=== PATIENT | male | born 1995 | race Caucasian/White ===

== ENCOUNTER 2021-08-21 19:06 | Emergency (ER) | payer BC, SELFPAY ==
[2021-08-21 19:10] VITALS: BP 142/81; PULSE 99; RESP 14; TEMP 37.1; O2SAT 99
[2021-08-21 19:20] VITALS: BP 142/81; PULSE 99; RESP 14; TEMP 37.1; O2SAT 99
--- NOTE | 2021-08-21 19:34 | ED.URI ---
HPI - URI/Sore Throat General Chief Complaint: Upper Respiratory Infection Stated Complaint: Cough/Shortness of Breath Time Seen by Provider: 08/21/21 19:26 Source: patient and RN notes reviewed Mode of arrival: ambulatory Limitations: no limitations History of Present Illness HPI Narrative: Patient presents today complaint of a 2-day history of dry cough, postnasal drip, nasal congestion and sinus pressure. Denies fever, shortness of breath. He has been using [id number] allergy medication and DayQuil without much relief. History of asthma as a child, but currently takes no medication for control. He is a non-smoker. No sick contacts. MD elicited complaint: cough and nasal congestion Related Data Home Medications Medication Instructions Recorded Confirmed dicyclomine 10 mg PO QID PRN 08/21/21 08/21/21 famotidine 20 mg PO DAILY PRN 08/21/21 08/21/21 Allergies Allergy/AdvReac Type Severity Reaction Status Date / Time Iodinated Contrast Media Allergy Hives Verified 08/21/21 19:18 Review of Systems Review of Systems: CONSTITUTIONAL: Denies body aches, fever, chills, or sweats. EYES: Denies visual changes, redness, or discharge. ENT: Denies rhinorrhea, sore throat, or otalgia.+ Nasal congestion, postnasal drip sinus pressure CARDIOVASCULAR: Denies chest pain, palpitations, or edema. RESPIRATORY: Denies dyspnea.+ Cough GASTROINTESTINAL: Denies abdominal pain, nausea, vomiting, or diarrhea. GENITOURINARY: Denies dysuria or hematuria. SKIN: Denies rash, itching, or wounds. MUSCULOSKELETAL: Denies back pain, joint pain, or myalgia. NEUROLOGIC: Denies headache, numbness, tingling, or weakness. PSYCH: Denies depression or anxiety. PMFSH Social History Social History Smoking status: Never smoker Alcohol intake: never Substance use: never Comments At time of signature, I have reviewed and agree with nursing past medical, surgical, social and family history unless otherwise noted. Please see nursing chart for further information. There is no relevant family history pertinent to the presenting complaint Exam Narrative: GENERAL: Well-appearing, well-nourished, and in no acute distress. HEAD: Normocephalic, atraumatic. EYES: EOMI. No redness or drainage. Conjunctivae normal. ENT: Mucous membranes pink and moist. Nares congestion with rhinorrhea. TMs normal bilaterally. Throat normal with mild postnasal drainage. Uvula midline. NECK: Normal AROM. Supple. No lymphadenopathy. CHEST: No respiratory distress. Clear to auscultation. HEART: Regular rate and rhythm. No murmur appreciated. Normal peripheral pulses. EXTREMITIES: Normal range of motion. No edema. SKIN: Warm, dry, no rash. Capillary refill normal. Normal skin turgor. NEURO: No focal deficits. Alert and oriented x3. Gait steady. PSYCH: Normal affect. No signs of depression or anxiety. Course Course Level of Care: Express Care Visit Vital Signs Vital signs: Vital Signs Temperature 98.7 F 08/21/21 19:10 Pulse Rate 99 08/21/21 19:10 Respiratory Rate 14 08/21/21 19:10 Blood Pressure 142/81 H 08/21/21 19:10 Pulse Oximetry 99 08/21/21 19:10 Temperature 98.7 F 08/21/21 19:20 Pulse Rate 99 08/21/21 19:20 Respiratory Rate 14 08/21/21 19:20 Blood Pressure 142/81 H 08/21/21 19:20 Pulse Oximetry 99 08/21/21 19:20 Reviewed. Pt has been instructed to follow up with his PCP regarding his elevated blood pressure today. MDM - URI/Sore Throat Differential Diagnosis Differential diagnosis: Likely upper respiratory infection, sinusitis, viral infection, bronchitis and other (Rhinitis, environmental allergies) Critical Care Time Critical Care Time Critical Care Time: No Discharge Plan Discharge Clinical Impression: Seasonal allergies Allergic rhinitis Qualifiers: Allergic rhinitis trigger: unspecified Allergic rhinitis seasonality: seasonal Qualified C
== END 2021-08-21 19:42 | disposition home or self-care (01) ==
PROVIDERS: Emergency Provider Nurse Practitioner
DX: J30.2 Other seasonal allergic rhinitis (principal); K21.9 Gastro-esophageal reflux disease without esophagitis
CPT/HCPCS: 99211; G0463

== ENCOUNTER 2021-09-04 16:09 | Emergency (ER) | payer BC, SELFPAY ==
--- NOTE | ~2021-09-04 | XR_ITS ---
EXAMINATION: XR chest 2V DATE: 09/04/2021 16:31 INDICATION: Fever, decreased lung sounds TECHNIQUE: PA and lateral views of the chest are obtained. COMPARISON: 06/25/2017 FINDINGS: The lungs are free of acute opacities. There is no pleural effusion or pneumothorax. The ca rdiomediastinal silhouette is normal. The visualized bones and soft tissues are unremarkable. IMPRESSION: 1. No acute cardiopulmonary abnormality. Reviewed, dictated and finalized at location F.
--- NOTE | 2021-09-04 16:11 | ED.URI ---
HPI - URI/Sore Throat General Stated Complaint: Cough/Headache/Sore Throat Time Seen by Provider: 09/04/21 16:11 Source: patient and RN notes reviewed Related Data Home Medications Medication Instructions Recorded Confirmed dicyclomine 10 mg PO QID PRN 08/21/21 08/21/21 famotidine 20 mg PO DAILY PRN 08/21/21 08/21/21 Allergies Allergy/AdvReac Type Severity Reaction Status Date / Time Iodinated Contrast Media Allergy Hives Verified 08/21/21 19:18 Review of Systems Review of Systems: CONSTITUTIONAL: Denies fever, chills, or sweats. EYES: Denies visual changes, redness, or discharge. ENT: Denies rhinorrhea, congestion, sore throat, or otalgia. CARDIOVASCULAR: Denies chest pain, palpitations, or edema. RESPIRATORY: Denies cough or dyspnea. GASTROINTESTINAL: Denies abdominal pain, nausea, vomiting, or diarrhea. GENITOURINARY: Denies dysuria or hematuria. SKIN: Denies rash or itching. MUSCULOSKELETAL: Denies back pain, joint pain, or myalgia. NEUROLOGIC: Denies headache, numbness, or weakness. PSYCHIATRIC: Denies anxiety or depression. All other systems reviewed are negative, except as documented in HPI. [facility] Social History Social History Smoking status: Never smoker Alcohol intake: never Substance use: never Comments At the time of my signature, I reviewed and agree with the nursing past medical, surgical, social, and family history. There is no relevant family history pertinent to the patient complaint. Exam Narrative: GENERAL: This is a well-nourished, well-developed patient, in no apparent distress. HEAD: normocephalic, atraumatic. EYES: PERRL. Sclera clear/white. Vision is grossly intact. EARS: External ears normal, auditory canals clear and without drainage, TMs normal without perforation. Hearing grossly intact. NOSE: External nose normal with no obvious nasal discharge, nares without redness, no rhinorrhea. THROAT: Mucous membranes moist, posterior pharynx clear. NECK: Neck supple, non-tender without lymphadenopathy, masses or thyromegaly. CARDIOVASCULAR: Regular rate and rhythm without murmurs, gallops, or rubs. RESPIRATORY: Clear to auscultation. Breath sounds equal bilaterally. No wheezes, rales, or rhonchi. GASTROINTESTINAL: Abdomen soft, non-tender, nondistended. Bowel sounds are active. No hepato-splenomegaly, or palpable masses. No guarding. SKIN: warm, intact with no suspicious lesions or rash, good texture and turgor. NEURO: awake, alert, and oriented to person, place and time. There were no obvious focal neurologic abnormalities. EXTREMITIES: No clubbing, cyanosis, or edema. No joint tenderness, effusion, or edema noted. No calf tenderness. Negative Homans sign bilaterally. BACK: Nontender without deformity or crepitance. No flank tenderness. Course Course Level of Care: Express Care Visit MDM - URI/Sore Throat Differential Diagnosis Differential diagnosis: Likely upper respiratory infection, otitis media, sinusitis, viral infection, bronchitis, influenza and pharyngitis Lab Data Attestation: I reviewed the patient's lab results. Critical Care Time Critical Care Time Critical Care Time: No Discharge Plan Discharge Prescriptions: No Action famotidine 20 mg Tablet 20 mg PO DAILY PRN (Reason: Abdominal Discomfort) RF: 0 dicyclomine 10 mg Capsule 10 mg PO QID PRN (Reason: Abdominal Discomfort) RF: 0
[2021-09-04 16:14] VITALS: BP 135/51; PULSE 122; RESP 18; TEMP 38.4; O2SAT 99
--- NOTE | 2021-09-04 16:24 | ED.URI ---
HPI - URI/Sore Throat General Chief Complaint: Upper Respiratory Infection Stated Complaint: Cough/Headache/Sore Throat Time Seen by Provider: 09/04/21 16:11 Source: patient and RN notes reviewed History of Present Illness HPI Narrative: Patient is a 26-year-old male who presents the urgent care with complaints of cough, headache sore throat and fever. Patient states he has had the cough for at least 1 month with intermittent headaches. Patient states he has had chills for the last 2 weeks with intermittent shortness of breath. States that the sore throat and fever started over the last 24 to 48 hours. Patient has been taking ibuprofen and allergy medication. Denies of chest pain. Denies of any ill contacts. Denies of any nausea or vomiting. No other acute complaints. No acute distress noted. Patient aware of the plan of care. Some parts of this dictation were generated by voice recognition software and may contain typographical and/or grammatical inaccuracies. Related Data Home Medications Medication Instructions Recorded Confirmed dicyclomine 10 mg PO QID PRN 08/21/21 08/21/21 famotidine 20 mg PO DAILY PRN 08/21/21 08/21/21 Allergies Allergy/AdvReac Type Severity Reaction Status Date / Time Iodinated Contrast Media Allergy Hives Verified 08/21/21 19:18 Review of Systems Review of Systems: CONSTITUTIONAL: Reports a fever, chills EYES: Denies visual changes, redness, or discharge. ENT: Denies rhinorrhea, congestion, otalgia. Reports of sore throat CARDIOVASCULAR: Denies chest pain, palpitations, or edema. RESPIRATORY: Reports of cough with intermittent dyspnea GASTROINTESTINAL: Denies abdominal pain, nausea, vomiting, or diarrhea. GENITOURINARY: Denies dysuria or hematuria. SKIN: Denies rash or itching. MUSCULOSKELETAL: Denies back pain, joint pain, or myalgia. NEUROLOGIC: Reports of intermittent headaches All other systems reviewed are negative, except as documented in HPI. [facility] Social History Social History Smoking status: Never smoker Alcohol intake: never Substance use: never Comments At the time of my signature, I reviewed and agree with the nursing past medical, surgical, social, and family history. There is no relevant family history pertinent to the patient complaint. Exam Narrative: GENERAL: This is a well-nourished, well-developed patient. Appears fatigued HEAD: normocephalic, atraumatic. EYES: PERRL. Sclera clear/white. Vision is grossly intact. EARS: External ears normal, auditory canals clear and without drainage, TMs normal without perforation. Hearing grossly intact. NOSE: External nose normal with no obvious nasal discharge. Bilateral erythemic nares with yellow rhinorrhea THROAT: Mucous membranes moist, mild erythema noted posterior pharynx with moderate postnasal drainage NECK: Neck supple, non-tender without lymphadenopathy, masses or thyromegaly. CARDIOVASCULAR: Regular rate and rhythm without murmurs, gallops, or rubs. RESPIRATORY: Clear to auscultation. Breath sounds equal bilaterally. No wheezes, rales, or rhonchi. SKIN: warm, intact with no suspicious lesions or rash, good texture and turgor. NEURO: awake, alert, and oriented to person, place and time. There were no obvious focal neurologic abnormalities. EXTREMITIES: No clubbing, cyanosis, or edema. Course Course Level of Care: Express Care Visit Vital Signs Vital signs: Vital Signs Temperature 101.2 F H 09/04/21 16:14 Pulse Rate 122 H 09/04/21 16:14 Respiratory Rate 18 09/04/21 16:14 Blood Pressure 135/51 L 09/04/21 16:14 Pulse Oximetry 99 09/04/21 16:14 Temperature 101.2 F H 09/04/21 16:14 Pulse Rate 122 H 09/04/21 16:14 Respiratory Rate 18 09/04/21 16:14 Blood Pressure 135/51 L 09/04/21 16:14 Pulse Oximetry 99 09/04/21 16:14 Reviewed MDM - URI/Sore Throat MDM Narrative Medical decision making narrative: Reviewed chest x
== END 2021-09-04 17:31 | disposition home or self-care (01) ==
PROVIDERS: Emergency Provider Nurse Practitioner Family
DX: U07.1 COVID-19 (principal); K21.9 Gastro-esophageal reflux disease without esophagitis
CPT/HCPCS: 71046; 87081; 87426; 87804; 87880; 99213; C9803; G0463

== ENCOUNTER 2022-07-14 17:33 | Emergency (ER) | payer BC, SELFPAY ==
[2022-07-14 17:38] VITALS: BP 150/78; PULSE 100; RESP 20; TEMP 37; O2SAT 99
--- NOTE | 2022-07-14 17:42 | ED.URI ---
HPI - URI/Sore Throat General Chief Complaint: Upper Respiratory Infection Stated Complaint: cold sx Time Seen by Provider: 07/14/22 17:35 Source: patient and RN notes reviewed History of Present Illness HPI Narrative: Patient is a 27-year-old male who presents to urgent care with complaints of persistent nonproductive cough since Thursday. Patient states that it feels like a tickle in his throat and is now causing a headache due to the persistent coughing. Patient has been taking DayQuil, NyQuil and Mucinex. Denies any other upper respiratory complaints. Denies any fever, chest pain or shortness of breath. No other acute complaints. No acute distress noted. Patient aware of the plan of care. Some parts of this dictation were generated by voice recognition software and may contain typographical and/or grammatical inaccuracies. Related Data Home Medications Medication Instructions Recorded Confirmed propranolol 10 mg tablet 10 mg PO DAILY 07/14/22 07/14/22 Allergies Allergy/AdvReac Type Severity Reaction Status Date / Time codeine Allergy Unknown Verified 07/14/22 17:46 Iodinated Contrast Media Allergy Hives Verified 08/21/21 19:18 Review of Systems Review of Systems: CONSTITUTIONAL: Denies fever, chills, or sweats. EYES: Denies visual changes, redness, or discharge. ENT: Denies rhinorrhea, congestion, sore throat, or otalgia. CARDIOVASCULAR: Denies chest pain, palpitations, or edema. RESPIRATORY: Reports dry cough without dyspnea GASTROINTESTINAL: Denies abdominal pain, nausea, vomiting, or diarrhea. GENITOURINARY: Denies dysuria or hematuria. SKIN: Denies rash or itching. MUSCULOSKELETAL: Denies back pain, joint pain, or myalgia. NEUROLOGIC: Denies headache, numbness, or weakness. All other systems reviewed are negative, except as documented in HPI. PMFSH Social History Social History Smoking status: Never smoker Alcohol intake: never Substance use: never Comments At the time of my signature, I reviewed and agree with the nursing past medical, surgical, social, and family history. There is no relevant family history pertinent to the patient complaint. Exam Narrative: GENERAL: This is a well-nourished, well-developed patient, in no apparent distress. HEAD: normocephalic, atraumatic. EYES: PERRL. Sclera clear/white. Vision is grossly intact. EARS: External ears normal, auditory canals clear and without drainage, moderate effusion to the right ear. Bilateral TMs normal without perforation. Hearing grossly intact. NOSE: External nose normal with no obvious nasal discharge, nares without redness, no rhinorrhea. THROAT: Mucous membranes moist, moderate postnasal drainage NECK: Neck supple CARDIOVASCULAR: Regular rate and rhythm RESPIRATORY: Nonproductive cough noted with deep breathing. Clear to auscultation. Breath sounds equal bilaterally. No wheezes, rales, or rhonchi. SKIN: warm, intact with no suspicious lesions or rash, good texture and turgor. NEURO: awake, alert, and oriented to person, place and time. There were no obvious focal neurologic abnormalities. EXTREMITIES: No clubbing, cyanosis, or edema. Course Course Level of Care: Express Care Visit Vital Signs Vital signs: Vital Signs Temperature 98.6 F 07/14/22 17:38 Pulse Rate 100 07/14/22 17:38 Respiratory Rate 20 07/14/22 17:38 Blood Pressure 150/78 H 07/14/22 17:38 Pulse Oximetry 99 07/14/22 17:38 Oxygen Delivery Room Air 07/14/22 17:38 Temperature 98.6 F 07/14/22 17:38 Pulse Rate 100 07/14/22 17:38 Respiratory Rate 20 07/14/22 17:38 Blood Pressure 150/78 H 07/14/22 17:38 Pulse Oximetry 99 07/14/22 17:38 Oxygen Delivery Room Air 07/14/22 17:38 Reviewed- Patient is informed that they may have pre-hypertension or hypertension based on a blood pressure reading in the department. I recommend the patient call the primary care provider lis
== END 2022-07-14 17:59 | disposition home or self-care (01) ==
PROVIDERS: Emergency Provider Nurse Practitioner Family
DX: J40 Bronchitis, not specified as acute or chronic (principal)
CPT/HCPCS: 99213; G0463

== ENCOUNTER 2022-08-25 15:25 | Emergency (ER) | payer BC, SELFPAY ==
--- NOTE | ~2022-08-25 | XR_ITS ---
LUMBAR SPINE INDICATION: Testicle and low back pain TECHNIQUE: 5 views lumbar spine COMPARISON: No prior studies for comparison. FINDINGS: No fracture, subluxation or dislocation. No evidence for spondylolysis or spondylolisthesi s. Vertebral bodies and disk spaces are preserved. IMPRESSION: 1: No acute abnormality of the lumbar spine identified. Reviewed, dictated and finalized at location B.
[2022-08-25 15:30] VITALS: BP 136/76; PULSE 79; RESP 20; TEMP 36.7; O2SAT 98
--- NOTE | 2022-08-25 16:00 | ED.BACK ---
HPI - Back Pain/Injury General Chief Complaint: Back Pain/Injury Stated Complaint: Low Back Pain Source: patient and RN notes reviewed History of Present Illness HPI Narrative: 27 yo M presents to urgent care with complaints of bilateral lower back pain x 1 week. Pt states the pain started out in his mid back 2 weeks ago and it has now moved downward. Pt reports the left side is worse than the right. Pt currently has pain that radiates to his left flank. Pt also reporting testicle pain x 5 days. Pt states he has had his walk on his back and recently had the best pop he's had in his upper back. Pt reports intermittent left leg, posteriorly, pain. States he has had kidney stones in the past but this feels different than that. Denies any fevers, chills, abdominal pain, dysuria, numbness, tingling, saddle anesthesia, or incontinence of urine or stool. Patient has taken Tylenol and ibuprofen. Related Data Home Medications Medication Instructions Recorded Confirmed sertraline 100 mg tablet 100 mg PO DIRECTED 08/25/22 08/25/22 Allergies Allergy/AdvReac Type Severity Reaction Status Date / Time codeine Allergy Unknown Verified 08/25/22 15:54 Iodinated Contrast Media Allergy Hives Verified 08/25/22 15:54 Review of Systems Review of Systems: Pertinent positives and pertinent negatives per HPI. [facility] Social History Social History Smoking status: Never smoker Alcohol intake: never Substance use: never Comments At the time of my signature, I reviewed and agree with the nursing past medical, surgical, social, and family history. There is no relevant family history pertinent to the patient complaint. Exam Narrative: GENERAL: This is a well-nourished, well-developed patient, in no apparent distress. HEAD: normocephalic, atraumatic. EYES: PERRL. Sclera clear/white. Vision is grossly intact. EARS: External ears normal, auditory canals clear and without drainage, TMs normal without perforation. Hearing grossly intact. NOSE: External nose normal with no obvious nasal discharge, nares without redness, no rhinorrhea. THROAT: Mucous membranes moist, posterior pharynx clear. NECK: Neck supple, non-tender without lymphadenopathy, masses or thyromegaly. CARDIOVASCULAR: Regular rate and rhythm without murmurs, gallops, or rubs. RESPIRATORY: Clear to auscultation. Breath sounds equal bilaterally. No wheezes, rales, or rhonchi. GASTROINTESTINAL: Abdomen soft, non-tender, nondistended. Bowel sounds are active. No hepato-splenomegaly, or palpable masses. No guarding. SKIN: warm, intact with no suspicious lesions or rash, good texture and turgor. NEURO: awake, alert, and oriented to person, place and time. There were no obvious focal neurologic abnormalities. EXTREMITIES: No clubbing, cyanosis, or edema. No joint tenderness, effusion, or edema noted. BACK: Nontender without deformity or crepitance. No flank tenderness. Course Course Level of Care: Express Care Visit Vital Signs Vital signs: Vital Signs Temperature 98.0 F 08/25/22 15:30 Pulse Rate 79 08/25/22 15:30 Respiratory Rate 20 08/25/22 15:30 Blood Pressure 136/76 08/25/22 15:30 Pulse Oximetry 98 08/25/22 15:30 Oxygen Delivery Room Air 08/25/22 15:30 Temperature 98.0 F 08/25/22 15:30 Pulse Rate 79 08/25/22 15:30 Respiratory Rate 20 08/25/22 15:30 Blood Pressure 136/76 08/25/22 15:30 Pulse Oximetry 98 08/25/22 15:30 Oxygen Delivery Room Air 08/25/22 15:30 Reviewed MDM - Back Pain/Injury MDM Narrative Medical decision making narrative: Discussed reasons for ER transfer including rule out testicular torsion and renal stone. Pt agrees with plan of care and would like to go to [facility] ED. Report called to [facility], spoke to Glenys NAGY who accepted pt for Dr. Rasmussen. Pt is going by private vehicle. Differential Diagnosis Differential diagnosis: Likely sciatica, pyelonephr
== END 2022-08-25 16:34 | disposition short-term general hospital (02) ==
PROVIDERS: Emergency Provider Nurse Practitioner Family
DX: N50.819 Testicular pain, unspecified (principal)
CPT/HCPCS: 72110; 81003; 99213; G0463

== ENCOUNTER 2022-10-02 08:52 | Outpatient (CLI) | payer BC, SELFPAY ==
[2022-10-02 19:23] LABS: Alanine Aminotransferase 46 U/L (6-50); Alkaline Phosphatase 72 U/L (38-126); Anion Gap 11 mmol/L (8-16); Aspartate Amino Transferase 41 U/L (17-59); Bilirubin,Total 0.5 mg/dL (0.2-1.3); Blood Urea Nitrogen 17 mg/dL (9-20); Calcium 9.2 mg/dL (8.4-10.2); Carbon Dioxide 29 mmol/L (22-30); Chloride 102 mmol/L (98-107); Cholesterol 247 mg/dL (0-200); Estimated Glomerular Filt Rate > 60; Glucose 76 mg/dL (65-110); HDL Direct 41 mg/dL; Potassium 3.9 mmol/L (3.4-5.0); Sodium 142 mmol/L (137-145); Triglycerides 250 mg/dL (<150)
[2022-10-02 19:38] LABS: Basophils Absolute Auto 0.1 K/mm3 (0.0-0.1); Eosinophils Absolute Auto 0.1 K/mm3 (0-0.3); Eosinophils Percent Auto 1.2 % (0-4.4); Hematocrit 46.7 % (42.0-52.0); Hemoglobin 15.7 g/dL (14.0-18.0); Immature Granulocyte Absolute 0.04 K/mm3 (0.00-0.031); Immature Granulocyte Percent A 0.6 % (0-0.5); Lymphocytes Absolute Auto 2.06 K/mm3 (0.9-3.2); Lymphocytes Percent Auto 28.5 % (18.3-44.2); Mean Corpuscular HGB Conc 33.6 g/dl (32-36); Mean Corpuscular Hemoglobin 29.5 pg (26-34); Mean Corpuscular Volume 87.6 fl (80-100); Mean Platelet Volume 9.5 fl (7.4-10.4); Monocytes Absolute Auto 0.6 K/mm3 (0.1-0.6); Monocytes Percent Auto 7.7 % (2.6-8.5); Neutrophils Absolute Auto 4.4 K/mm3 (1.3-6.7); Platelet Count Result 222 k/mm3 (150-375); Red Blood Count 5.33 M/mm3 (4.6-6.20); Red Cell Distribution Width 12.5 % (11.5-14.5); White Blood Count 7.2 K/mm3 (4.5-10.0)
[2022-10-02 19:47] LABS: LDL Cholesterol Direct 164 mg/dL
== END 2022-10-02 08:53 | disposition home or self-care (01) ==
LOC: ANHGOSHLAB 08:53
PROVIDERS: PCP Family Medicine; Visit Provider Nurse Practitioner
DX: K58.9 Irritable bowel syndrome, unspecified (principal); K76.0 Fatty (change of) liver, not elsewhere classified
CPT/HCPCS: 36415; 80053; 80061; 85025

== ENCOUNTER 2022-10-14 08:47 | Outpatient (CLI) | payer BC, SELFPAY ==
--- NOTE | ~2022-10-14 | MR_ITS ---
EXAMINATION: MR lumbar spine wo con DATE: 10/14/2022 09:21 INDICATION: Low back pain, unspecified. TECHNIQUE: Magnetic resonance imaging (MRI) of the lumbar spine was performed without intravenous con trast. Sequences included sagittal T2-weighted FSE, sagittal T2-weighted FS FSE, sagittal T1-weighted FSE, and axial T2-weighted FSE. COMPARISON: Lumbar spine radiographs 08/25/2022 FINDINGS: Bone alignment is normal. Vertebral body heights are normal. There is mildly decreased disc height at L5-S1. The distal spinal cord signal intensity is normal. The conus medullaris is at T12-L 1. The following disc levels are specifically discussed: L1-L2: The disc does not extend beyond the endplate margin. There is mild bilateral facet joint osteo arthritis. There is no neural foraminal stenosis. There is no central canal stenosis. L2-L3: The disc does not extend beyond the endplate margin. There is moderate bilateral facet joint o steoarthritis. There is no neural foraminal stenosis. There is no central canal stenosis. L3-L4: The disc does not extend beyond the endplate margin. There is mild bilateral facet joint osteo arthritis. There is no neural foraminal stenosis. There is no central canal stenosis. L4-L5: The disc is bulging and has an annular fissure. There is severe right and moderate left facet joint osteoarthritis. There is mild bilateral neural foraminal stenosis. There is no central canal st enosis. L5-S1: There is a left subarticular and foraminal zone extrusion with mass effect on left S1 nerve ro ot in left lateral recess. There is moderate bilateral facet joint osteoarthritis. There is moderate left neural foraminal stenosis. There is mild central canal stenosis. There is severe stenosis of lef t lateral recess. IMPRESSION: 1. Moderate spondylosis at L5-S1 where an extrusion exerts mass effect on left S1 nerve root. Reviewed, dictated and finalized at location L.
== END 2022-10-14 08:48 | disposition home or self-care (01) ==
LOC: ANHIMG 08:54
PROVIDERS: PCP Nurse Practitioner; Visit Provider Nurse Practitioner
DX: M47.897 Other spondylosis, lumbosacral region (principal)
CPT/HCPCS: 72148

== ENCOUNTER 2022-11-13 12:17 | Outpatient (CLI) | payer BC, SELFPAY ==
[2022-11-13 14:58] LABS: Hematocrit 45.9 % (42.0-52.0); Mean Corpuscular HGB Conc 34.9 g/dl (32-36); Mean Corpuscular Hemoglobin 29.5 pg (26-34); Mean Corpuscular Volume 84.5 fl (80-100); Mean Platelet Volume 8.9 fl (7.4-10.4); Platelet Count Result 229 k/mm3 (150-375); Red Blood Count 5.43 M/mm3 (4.6-6.20); White Blood Count 6.3 K/mm3 (4.5-10.0)
[2022-11-13 15:03] LABS: Appearance Urine Clear (Clear); Bilirubin Urine Negative (Negative); Blood Urine Negative (Negative); Color Urine Yellow (Yellow); Glucose Urine UA Negative (Negative); Ketones Urine Negative (Negative); Leukocyte Esterase Ur Negative LEU/UL (Negative); Nitrate Urine Negative (Negative); Protein Urine Negative (Negative); Specific Grav Ur 1.008 (1.001-1.035); Urobilinogen Urine 0.2 mg/dL (<2.0); pH Urine 5.5 (5.0-9.0)
[2022-11-13 15:08] LABS: Anion Gap 10 mmol/L (8-16); Blood Urea Nitrogen 12 mg/dL (9-20); Calcium 9.3 mg/dL (8.4-10.2); Carbon Dioxide 27 mmol/L (22-30); Chloride 103 mmol/L (98-107); Estimated Glomerular Filt Rate > 60; Glucose 96 mg/dL (65-110); Potassium 3.9 mmol/L (3.4-5.0); Sodium 140 mmol/L (137-145)
[2022-11-13 15:16] LABS: Add Urine Microscopic? NO; INR 0.9
[2022-11-13 15:17] LABS: Partial Thromboplastin Time 28.5 SECONDS (22.3-36.8)
== END 2022-11-13 12:18 | disposition home or self-care (01) ==
PROVIDERS: PCP Internal Medicine; Visit Provider Neurological Surgery
DX: M51.16 Intervertebral disc disorders with radiculopathy, lumbar region (principal); Z01.818 Encounter for other preprocedural examination
CPT/HCPCS: 36415; 80048; 81003; 85027; 85610; 85730

== ENCOUNTER 2022-11-19 06:36 | Day surgery (SDC) | payer BC, SELFPAY ==
[2022-11-10 15:08] VITALS: BMI 32.8
--- NOTE | 2022-11-10 15:56 | SUR.PREOP ---
Report to the Outpatient Waiting Room, entrance under the green pavilion located off [facility], at time 0600 on date 11/19/22. Planned Procedure Time: 0730. Time changes happen often and if your time is changed the preop area will call you the afternoon before. - You and your visitor will be asked to self-screen and do not enter if you have any COVID symptoms. - A mask is optional within the hospital at this time. Patients may have clear liquids (water, carbonated beverages, clear teas, apple juice) until 3 hours prior to surgery with a maximum of 20 ounces. - No food from midnight until time of surgery - Infants may have breast milk until 4 hours before surgery, infant formula 6 hours prior to surgery. - Children will be allowed to drink immediately following surgery. If applicable, please bring a bottle or sippy cup to assist with drinking. Juice, water, soda, and popsicles are readily available. For infants on formula, please bring formula the day of surgery. Pacifiers are allowed. Take the following medications with a SIP of water the morning of surgery: hydrocodone, buspirone, clonazapam, duloxetine, pregabalin DO NOT STOP ANY OF YOUR OTHER PRESCRIPTION MEDICATIONS PRIOR TO SURGERY ?EXCEPT THE FOLLOWING Medications to discontinue per physician stop all vitamins and suppliments 3 days prior. Date to take last dose 11/15/22 Please no make-up, nail [place] islander, hairspray, perfume, deodorant, or body powder the day of surgery. No jewelry (including any body piercings) or valuables the day of surgery, leave them at home. Please take a shower or bath the night before, or the morning of, surgery with an antibacterial soap. Wear comfortable, loose fitting clothing. Children are encouraged to wear pajamas. - Jewelry must be removed prior to entering the operating room. Rings and piercings that are not removed may be cut off. - The hospital will not accept responsibility for valuables. - Please leave all valuables, including medications, at home the day of surgery. If you are going home after surgery, a licensed warehouse associate driver must drive you home. - NO public transportation without another adult if you receive anesthesia. - We recommend that an adult stay with you for 24 hours following discharge. - We also recommend that you do not drive, make important decision, drink alcoholic beverages, or take any drugs that were not prescribed by your health care provider for at least 24 hours after your discharge time. For Pediatric surgeries, we recommend two adults accompany the child home. Follow any additional instructions given to you from your surgeon. If you or anyone in your household have experienced Covid symptoms in the past week, please notify your surgeon or the nurse liaison at the phone number below for possible testing. Telephone instructions given to camille duong and asked if any additional questions and then verbalized understanding. Patient advised to call surgeon office or pre surgery nurse liaison [phone] if any additional questions.
--- NOTE | 2022-11-17 13:40 | WPDANESEPPF ---
Anes - Initial Pre Proc Eval Procedure: Operation Date: 11/19/22 09:30 Proposed Procedures p Left L5-S1 Micro Discectomy - Trini Tripp MD Date/Time: 11/17/22 13:40 Surgeon: Trini Tripp MD Pre Op Diagnosis: left l5-s1 disc herniation with radiculopathy Patient Data Age: 27 Gender: M Height: 1.8 m Weight: 106.59 kg Allergies Allergy/AdvReac Type Severity Reaction Status Date / Time Iodinated Contrast Media Allergy Hives Verified 11/19/22 07:50 Contrast Media Allergy Intermediate Hives / Uncoded 11/19/22 07:50 Red Face Home Medications Medication Instructions Recorded Confirmed Type buspirone 7.5 mg tablet 7.5 mg PO BID 10/02/22 11/19/22 History clonazepam 0.5 mg tablet 0.5 mg PO DAILY PRN Anxiety 10/02/22 11/19/22 History hydrocodone 5 mg-acetaminophen 325 1 tablet PO Q8H PRN pain #45 tabs 10/20/22 11/19/22 Rx mg tablet pregabalin 75 mg capsule 75 mg PO QHS #30 caps 10/20/22 11/19/22 Rx duloxetine 60 mg capsule,delayed 60 mg PO DAILY 10/30/22 11/19/22 History release (Cymbalta) Patient hx anesthesia problems: none Family hx anesthesia problems: none Results Review: All pre-operative results and documents have been reviewed as part of the pre-operative evaluation. [facility] Past Medical History Medical History (Updated 11/17/22 @ 13:41 by Lev Gordon MD) Anxiety Benign essential tremor syndrome Depression Fatty liver IBS (irritable bowel syndrome) Lumbosacral radiculopathy Obesity Spinal stenosis of lumbar region at multiple levels Surgical History Surgical History History of adenoidectomy History of ear surgery History of placement of ear tubes History of shoulder surgery History of tonsillectomy Family History Family History (Updated 10/02/22 @ 08:51 by Cara Sneed NP) Father Ulcerative colitis Heart disease Mother No problems noted. Other Hypertension Social History Social History (Updated 10/30/22 @ 08:54 by Rox Colin MA) Social History: Kelsey is somewhat confident filling out medical forms. In the last 12 months he has not received assistance from an organization or program. Smoking status: Never smoker Alcohol intake: never Substance use: never Lack of Transportation: No Lack of Food: Never True Current Housing: I Have Housing Concerned About Future Housing: No Difficulty Paying Gas/Electric Bills: No Difficulty Paying for Meds: No Currently Unemployed: No Education: High School Diploma/GED Difficulty w/ Childcare or Family Care: No Living arrangements: alone Spiritual care concerns: No Anes - Eval Final PreProcedure Day of Procedure 11/17/22 13:40 Patient weight: obese Heart: regular rate and rhythm Lungs: clear to auscultation and normal air movement Airway: Mallampati scale class II Neurological: alert and oriented Last oral intake: >/= 8 hours ASA classification: III Emergent: no Anesthetic plan: proceed Anesthesia type and monitoring: general ETT Results Review: All pre-operative results and documents have been reviewed as part of the pre-operative evaluation. Informed Consent: The patient's anesthetic plan and its attendant risks and benefits were discussed with the patient/family/POA. Questions were solicited and answers provided to the satisfaction of the patient/family/POA.
[2022-11-19] VITALS (9 sets, daily range): BP systolic 100–152; BP diastolic 33–94; PULSE 81–99; RESP 10–23; TEMP 36.6–36.7; O2SAT 94–100
--- NOTE | ~2022-11-19 | XR_ITS ---
EXAMINATION: XR fluoroscopy no charge DATE: 11/19/2022 11:30 INDICATION: Left L5-S1 disc herniation. TECHNIQUE: A single intraoperative lateral fluoroscopic view of the lumbar spine was obtained. I was not present. Fluoroscopy exposure time was 6 seconds. COMPARISON: Lumbar spine MRI 10/14/2022 FINDINGS: There is an instrument overlying the posterior elements at L5-S1. IMPRESSION: 1. Instrument overlying the posterior elements at L5-S1. Reviewed, dictated and finalized at location A.
[2022-11-19] MEDS: LACTATED RINGERS 1,000 ML 30 ML IV CONT ×2 (08:08→11:18)
--- NOTE | 2022-11-19 09:08 | WPDHPUPDATE1 ---
History and Physical Update Update Date/Time: 11/19/22 09:08 History and Physical has been reviewed, including an updated exam of the patient. There are NO changes in the patient's condition. Risks, benefits, and alternatives have been discussed and questions answered. Patient agrees to proceed with procedure.
[2022-11-19] MEDS: ceFAZolin 2 GM/D5W 50 ML 2 GM/50 ML BAG IVPB (09:28)
[2022-11-19] MEDS: BUPIVACAINE/EPINEPHRINE 0.5% 10 ML VIAL INFILTRATE (10:05)
--- NOTE | 2022-11-19 11:23 | W.PM.PROC2 ---
Procedure Note - Detailed Date of Procedure 11/19/22 Pre-op Diagnosis Left L5-S1 disc herniation with radiculopathy Post-op Diagnosis Same Procedure Performed 1. Left L5-S1 microdiskectomy 2. Use of microscope for microsurgical dissection 3. Use of C-arm for fluoroscopy Surgeon Trini Tripp MD [employer] [facility] Anesthesia General Indications Mr. Mueller is a 27-year-old male with history of left lumbar radiculopathy and weakness in plantar and dorsiflexion of the left foot who was found to have a large disc herniation at L5-S1. In addition to the pain down the back of his leg, he had numbness in his foot and urinary retention. He failed chiropractic treatment and multiple medications. Surgery in the form of microdiskectomy was recommended. Risks including pain, infection, bleeding, CSF leak, nerve damage, worsening symptoms, failure to improve symptoms, weakness, paresthesias, and paralysis were discussed. The patient provided written informed consent to proceed. Findings Large free disc fragment at L5-S1 causing pressure on the S1 nerve root Description of Procedure The patient was brought into the OR where general anesthesia was induced. The patient was turned prone onto the operating table with Albino frame. All pressure points were padded. The planned incision was marked with the use of the C-arm. The incision was prepped and draped in usual sterile fashion. Time out was performed, and local anesthetic was injected into the planned incision. The midline lumbar incision was opened with a 10-blade scalpel. The soft tissue was dissected with the bovie to the spinous process. A subperiosteal dissection was performed to expose the left L5 lamina. An xray confirmed the correct level. Self-retaining retractors were placed. The high speed drill was used to create a laminotomy at L5. Ligamentum and additional bone were removed with a kerrison. The dura and S1 nerve root were exposed. A Woodsen and 4 penfield were used to access the ventral epidural space. The disc fragment was somewhat adherent to the dura which was gradually elevated with a 4 penfield and Woodsen. A large free disc fragment was discovered and was removed with a micropituitary. The annulotomy was then visualized. The Quiñones was placed into the disc space to remove several small disc fragments. The epidural space was again palpated with the Woodsen, and no other disc fragments were identified. Bleeding was controlled with the bipolar and Surgiflo. The nerve roots and dura felt well decompressed. The surgical site was copiously irrigated. The fascia was closed with 0-vicryl. The dermis was closed with 2-0 and 3-0 vicryl. The skin was closed with 4-0 monocryl. Skin glue was applied to the incision. The patient was returned supine to the stretcher, extubated, and taken to PACU. Codes: 57264, 89576 Implants None Estimated Blood Loss 10 Drains No Packing No Pathology None sent Complications No immediate complications Condition Stable Disposition PACU [facility] Billing Surgery - Charge Forward: Surgery Billing
[2022-11-19] MEDS: oxyCODONE HCL (*CRX) 5 MG TAB IR PO (12:55)
== END 2022-11-19 14:00 | disposition home or self-care (01) ==
PROVIDERS: PCP Internal Medicine; Visit Provider Neurological Surgery
PROC: 0QB00ZX Excision of Lumbar Vertebra, Open Approach, Diagnostic (ICD-10-PCS; CPT 63017; principal; 2022-11-19 09:30)
DX: M51.16 Intervertebral disc disorders with radiculopathy, lumbar region (principal); I10 Essential (primary) hypertension; K76.0 Fatty (change of) liver, not elsewhere classified; F41.9 Anxiety disorder, unspecified; F32.A Depression, unspecified; E66.9 Obesity, unspecified; Z68.32 Body mass index [BMI] 32.0-32.9, adult; Z79.891 Long term (current) use of opiate analgesic
CPT/HCPCS: 63030; 36415; 80048; 81003; 85027; 85610; 85730; 99199; A9270; J0330; J0690; J1100; J1170; J2250; J2405; J2704; J3010; J7120

== ENCOUNTER 2023-01-07 16:14 | Outpatient (CLI) | payer BC, SELFPAY ==
[2023-01-07 18:36] LABS: Basophils Absolute Auto 0.1 K/mm3 (0.0-0.1); Basophils Percent Auto 0.8 % (0.2-1.2); Eosinophils Absolute Auto 0.2 K/mm3 (0-0.3); Eosinophils Percent Auto 2.7 % (0-4.4); Hematocrit 47.9 % (42.0-52.0); Hemoglobin 16.1 g/dL (14.0-18.0); Immature Granulocyte Absolute 0.03 K/mm3 (0.00-0.031); Immature Granulocyte Percent A 0.3 % (0-0.5); Lymphocytes Absolute Auto 2.35 K/mm3 (0.9-3.2); Lymphocytes Percent Auto 27.3 % (18.3-44.2); Mean Corpuscular HGB Conc 33.6 g/dl (32-36); Mean Corpuscular Hemoglobin 29.1 pg (26-34); Mean Corpuscular Volume 86.5 fl (80-100); Mean Platelet Volume 9.3 fl (7.4-10.4); Monocytes Absolute Auto 1.1 K/mm3 (0.1-0.6); Monocytes Percent Auto 12.2 % (2.6-8.5); Neutrophils Absolute Auto 4.9 K/mm3 (1.3-6.7); Neutrophils Percent Auto 56.7 % (45.5-73.1); Platelet Count Result 271 k/mm3 (150-375); Red Blood Count 5.54 M/mm3 (4.6-6.20); White Blood Count 8.6 K/mm3 (4.5-10.0)
[2023-01-07 19:16] LABS: Alanine Aminotransferase 97 U/L (6-50); Albumin Level 4.6 g/dL (3.5-5.1); Alkaline Phosphatase 62 U/L (38-126); Anion Gap 5 mmol/L (8-16); Aspartate Amino Transferase 49 U/L (17-59); Bilirubin,Total 0.5 mg/dL (0.2-1.3); Blood Urea Nitrogen 13 mg/dL (9-20); Calcium 9.1 mg/dL (8.4-10.2); Carbon Dioxide 29 mmol/L (22-30); Chloride 102 mmol/L (98-107); Estimated Glomerular Filt Rate > 60; Glucose 99 mg/dL (65-110); Potassium 4.1 mmol/L (3.4-5.0); Sodium 136 mmol/L (137-145)
[2023-01-07 19:51] LABS: Free T4 Free Thyroxine 1.09 ng/mL (0.78-2.19)
[2023-01-10 05:27] LABS: Triiodothyronine T3 Free 3.8 pg/mL (2.3-4.2)
== END 2023-01-07 16:15 | disposition home or self-care (01) ==
LOC: ANHGOSHLAB 16:15
PROVIDERS: PCP Internal Medicine; Visit Provider Nurse Practitioner
DX: R42 Dizziness and giddiness (principal); R25.1 Tremor, unspecified
CPT/HCPCS: 36415; 80053; 84439; 84443; 84481; 85025

== ENCOUNTER 2023-03-04 16:37 | Emergency (ER) | payer BC, SELFPAY ==
[2023-03-04 16:47] VITALS: BP 132/80; PULSE 95; RESP 16; TEMP 36.6; O2SAT 98
--- NOTE | 2023-03-04 17:13 | ED.GENADULT ---
HPI - General Adult General Chief complaint: Dental/Oral Stated complaint: Mouth Sore Source: patient and RN notes reviewed History of Present Illness HPI narrative: 28 yo M Presents to urgent care with complaints of tongue pain. Pt states he has had canker sores since Thursday but he developed dorsal tongue pain since yesterday. Pt reports a hx of canker sores. Denies any fevers, chills, vomiting, chest pain, or SOB. Related Data Home Medications Medication Instructions Recorded Confirmed buspirone 7.5 mg tablet 7.5 mg PO BID 10/02/22 03/04/23 duloxetine 30 mg capsule,delayed 30 mg PO 03/04/23 release fluoxetine 20 mg capsule 20 mg PO DAILY 03/04/23 03/04/23 lamotrigine 100 mg tablet 100 mg PO DAILY 03/04/23 03/04/23 Allergies Allergy/AdvReac Type Severity Reaction Status Date / Time Iodinated Contrast Media Allergy Hives Verified 03/04/23 17:03 Contrast Media Allergy Intermediate Hives / Uncoded 03/04/23 17:03 Red Face Review of Systems Review of Systems: CONSTITUTIONAL: Denies fever, chills, or sweats. EYES: Denies visual changes, redness, or discharge. ENT: Denies otalgia and sore throat. Tongue pain. mouth sores. CARDIOVASCULAR: Denies chest pain, palpitations, or edema. RESPIRATORY: Denies cough or dyspnea. GASTROINTESTINAL: Denies abdominal pain, nausea, vomiting, or diarrhea. GENITOURINARY: Denies dysuria or hematuria. SKIN: Denies rash or itching. MUSCULOSKELETAL: Denies back pain, joint pain, or myalgia. NEUROLOGIC: Denies headache, numbness, or weakness. Pertinent positives per HPI. [facility] Past Medical History Medical History (Updated 03/04/23 @ 17:14 by Tequila Barker APRN) Anxiety Benign essential tremor syndrome Depression Fatty liver IBS (irritable bowel syndrome) Lumbosacral radiculopathy Obesity Spinal stenosis of lumbar region at multiple levels Surgical History Surgical History (Updated 01/07/23 @ 15:22 by Yelitza Mcrae MA) History of adenoidectomy History of ear surgery History of placement of ear tubes History of shoulder surgery History of tonsillectomy Previous back surgery Family History Family History (Updated 10/02/22 @ 08:51 by Cara Sneed NP) Father Ulcerative colitis Heart disease Mother No problems noted. Other Hypertension Social History Social History (Updated 10/30/22 @ 08:54 by Rox Colin MA) Social History: Kelsey is somewhat confident filling out medical forms. In the last 12 months he has not received assistance from an organization or program. Smoking status: Never smoker Alcohol intake: never Substance use: never Lack of Transportation: No Lack of Food: Never True Current Housing: I Have Housing Concerned About Future Housing: No Difficulty Paying Gas/Electric Bills: No Difficulty Paying for Meds: No Currently Unemployed: No Education: High School Diploma/GED Difficulty w/ Childcare or Family Care: No Living arrangements: alone Spiritual care concerns: No Comments At the time of my signature, I reviewed and agree with the nursing past medical, surgical, social, and family history. There is no relevant family history pertinent to the patient complaint. Exam Narrative: GENERAL: This is a well-nourished, well-developed patient, in no apparent distress. HEAD: normocephalic, atraumatic. EYES: Sclera clear/white. Vision is grossly intact. EARS: External ears normal, auditory canals clear and without drainage. Hearing grossly intact. NOSE: External nose normal with no obvious nasal discharge, nares without redness, no rhinorrhea. THROAT: Mucous membranes moist, posterior pharynx clear. MOUTH: canker sores noted sublingual. White patch covering most of dorsal tongue. No lesions or sores on outside of mouth. Throat is clear. NECK: Neck supple, lymphadenopathy noted. CARDIOVASCULAR: Regular rate and rhythm without murmurs, gallops, or rubs. RESPIRATORY: Clear to au
== END 2023-03-04 17:20 | disposition home or self-care (01) ==
PROVIDERS: Emergency Provider Nurse Practitioner Family; PCP Internal Medicine
DX: K12.0 Recurrent oral aphthae (principal); B37.0 Candidal stomatitis; K76.0 Fatty (change of) liver, not elsewhere classified; M54.17 Radiculopathy, lumbosacral region; E66.9 Obesity, unspecified; Z68.34 Body mass index [BMI] 34.0-34.9, adult; M48.061 Spinal stenosis, lumbar region without neurogenic claudication; F41.9 Anxiety disorder, unspecified; F32.A Depression, unspecified
CPT/HCPCS: 99213; G0463

== ENCOUNTER 2023-03-07 13:10 | Outpatient (CLI) | payer BC, SELFPAY ==
--- NOTE | 2023-03-07 13:31 | ECHO_ITS ---
Patient Info Name: Kelsey Mueller Age: 28 years : 1995 Gender: Male Ht: 71 in Wt: 250 lbs BSA: 2.42 m2 HR: 148 bpm BP: 98 / 108 mmHg Heart Rhythm: Sinus Rhythm Technical Quality: Good Exam Date: 03/07/2023 1:45 PM Exam Location: [facility] Pulmonary Patient Status: Outpatient Admit Date: 03/07/2023 Staff Ordering Physician: Cara Sneed NP Health Workers: Sonido Guevara RDCS Attending Provider: Cara Sneed NP Referring Physician: Nedra JAIMES; Exam Type: CA echo doppler color flow Study Info Indications - dizziness Complete two-dimensional, color flow and Doppler transthoracic echocardiogram is performed. Summary 1. Complete two-dimensional, color flow and Doppler transthoracic echocardiogram is performed. 2. Left ventricular chamber dimension is normal. 3. Left ventricular systolic function is normal, estimated at 60-65%. 4. The left ventricular diastolic function is normal. 5. E/e' 5 is not elevated. 6. There is trace tricuspid valve regurgitation. 7. No pulmonary hypertension, estimated pulmonary arterial systolic pressure is 13 mmHg. Left Ventricle E/e' 5 is not elevated. Left ventricular chamber dimension is normal. Left ventricular systolic function is normal, estimated at 60-65%. The left ventricular diastolic function is normal. Right Ventricle Right ventricular systolic function is normal and with normal TAPSE 2.8 cm. Right ventricular chamber dimension is normal. Left Atria Left atrial chamber dimension is normal. Right Atria Right atrial chamber dimension is normal. Aortic Valve The aortic valve is trileaflet. There is no aortic valve stenosis. There is no aortic valve regurgitation. Pulmonic Valve There is no pulmonic regurgitation. Mitral Valve There is no mitral valve stenosis. There is no mitral valve regurgitation. Tricuspid Valve There is trace tricuspid valve regurgitation. No pulmonary hypertension, estimated pulmonary arterial systolic pressure is 13 mmHg. Pericardium/Pleural There is no pericardial effusion. Inferior Vena Cava Normal inferior vena cava with >50% collapse upon inspiration consistent with normal right atrial pressure, 5 mmHg. Aorta The aortic root size at the sinus of Valsalva is normal. Left Ventricular Outflow Tract Name Value Normal LVOT 2D LVOT Diameter 2.0 cm LVOT Doppler LVOT Peak Gradient 2 mmHg LVOT Mean Gradient 1 mmHg LVOT VTI 14 cm LVOT VTI/AV VTI Ratio 0.8 LVOT Stroke Volume 43 ml LVOT CO 3.3 l/min LVOT CI 1.4 l/min/m2 Pulmonic Valve Name Value Normal RVOT Doppler RVOT Peak Gradient 3 mmHg PV Doppler PV Peak Gradient 2
--- NOTE | 2023-03-11 16:08 | WPDHOLTEREM ---
Holter/Event Monitor Holter/Event Monitor Date of procedure: 03/07/23 Holter/Event Procedure: 48 Hr Holter Monitor Indications: Dizziness Conclusion: 1. 48 hour holter monitor on 03/07/23. 2. Underlying rhythm is sinus rhythm. HR range 50-179 bpm; average HR 87 bpm. HR at 179 bpm was at 05:04. 3. There is 1 premature supraventricular complex. No supraventricular tachycardia. 4. There are 4 premature ventricular complexes. No ventricular tachycardia. 5. No sinoatrial or atrioventricular blocks. No significant pauses greater than 2 seconds. 6. Patient reports symptom of chest tightness which demonstrate sinus rhythm at 94 bpm.
== END 2023-03-07 13:11 | disposition home or self-care (01) ==
PROVIDERS: PCP Internal Medicine; Visit Provider Nurse Practitioner
DX: R00.0 Tachycardia, unspecified (principal); R42 Dizziness and giddiness; I07.1 Rheumatic tricuspid insufficiency
CPT/HCPCS: 93225; 93226; 93306

== ENCOUNTER 2023-06-22 14:28 | Outpatient (CLI) | payer BC, SELFPAY ==
[2023-06-22 18:15] LABS: Basophils Absolute Auto 0.1 K/mm3 (0.0-0.1); Basophils Percent Auto 1.4 % (0.2-1.2); Eosinophils Absolute Auto 0.1 K/mm3 (0-0.3); Eosinophils Percent Auto 1.8 % (0-4.4); Hematocrit 48.2 % (42.0-52.0); Hemoglobin 16.6 g/dL (14.0-18.0); Immature Granulocyte Absolute 0.01 K/mm3 (0.00-0.031); Immature Granulocyte Percent A 0.2 % (0-0.5); Lymphocytes Absolute Auto 1.98 K/mm3 (0.9-3.2); Lymphocytes Percent Auto 38.9 % (18.3-44.2); Mean Corpuscular HGB Conc 34.4 g/dl (32-36); Mean Corpuscular Hemoglobin 29.3 pg (26-34); Mean Corpuscular Volume 85.2 fl (80-100); Monocytes Absolute Auto 0.5 K/mm3 (0.1-0.6); Monocytes Percent Auto 9.8 % (2.6-8.5); Neutrophils Absolute Auto 2.4 K/mm3 (1.3-6.7); Neutrophils Percent Auto 47.9 % (45.5-73.1); Platelet Count Result 240 k/mm3 (150-375); Red Blood Count 5.66 M/mm3 (4.6-6.20); Red Cell Distribution Width 12.5 % (11.5-14.5); White Blood Count 5.1 K/mm3 (4.5-10.0)
[2023-06-22 19:00] LABS: Alanine Aminotransferase 79 U/L (6-50); Albumin Level 4.8 g/dL (3.5-5.1); Alkaline Phosphatase 60 U/L (38-126); Anion Gap 10 mmol/L (8-16); Aspartate Amino Transferase 53 U/L (17-59); Bilirubin,Total 0.8 mg/dL (0.2-1.3); Blood Urea Nitrogen 15 mg/dL (9-20); Calcium 9.8 mg/dL (8.4-10.2); Carbon Dioxide 24 mmol/L (22-30); Chloride 104 mmol/L (98-107); Cholesterol 201 mg/dL (0-200); Estimated Glomerular Filt Rate > 60; Glucose 78 mg/dL (65-110); HDL Direct 35 mg/dL; Potassium 4.1 mmol/L (3.4-5.0); Sodium 138 mmol/L (137-145); Triglycerides 90 mg/dL (<150)
[2023-06-22 19:11] LABS: LDL Cholesterol Direct 135 mg/dL
== END 2023-06-22 14:29 | disposition home or self-care (01) ==
LOC: ANHGOSHLAB 14:29
PROVIDERS: PCP Internal Medicine; Visit Provider Nurse Practitioner
DX: K58.9 Irritable bowel syndrome, unspecified (principal); K76.0 Fatty (change of) liver, not elsewhere classified
CPT/HCPCS: 36415; 80053; 80061; 84443; 85025

== ENCOUNTER → 2023-06-26 08:03 | Outpatient (CLI) | payer BC, SELFPAY ==
--- NOTE | ~2023-06-26 | US_ITS ---
Limited Abdominal Sonogram: Real-time sonographic imaging of the right upper quadrant was performed. Clinical History: Fatty liver Findings: The liver appears mildly echogenic, with no evidence of mass lesion or bile duct dilatatio n. Main portal vein demonstrates normal direction of flow. The gallbladder is well distended, and keke ears normal with no evidence of gallstone or wall thickening. The common bile duct measures 5 mm. Th e visualized pancreas, aorta, and IVC are unremarkable. Impression: Probable diffuse fatty infiltration of liver. Reviewed, dictated and finalized at location M. R AND DELIVERY NURSE Impression: Probable diffuse fatty infiltration of liver.
== END ==
PROVIDERS: PCP Nurse Practitioner; Visit Provider Clinical Nurse Specialist
DX: K76.0 Fatty (change of) liver, not elsewhere classified (principal)
CPT/HCPCS: 76705

== ENCOUNTER 2024-01-14 12:33 | Outpatient (CLI) | payer BC, SELFPAY ==
--- NOTE | ~2024-01-14 | MR_ITS ---
EXAMINATION: MR lumbar spine wo con DATE: 01/14/2024 13:16 INDICATION: Radiculopathy, lumbosacral region. TECHNIQUE: Magnetic resonance imaging (MRI) of the lumbar spine was performed without intravenous con trast. Sequences included sagittal T2-weighted FSE, sagittal T2-weighted FS FSE, sagittal T1-weighted FSE, and axial T2-weighted FSE. COMPARISON: Lumbar spine MRI 10/14/2022, radiographs 08/25/2022 FINDINGS: Bone alignment is normal. There is mild chronic anterior wedging of T11 and T12 vertebral b odies with Schmorl's nodes. There is mildly decreased disc height at L5-S1. The distal spinal cord si gnal intensity is normal. The conus medullaris is at T12-L1. The following disc levels are specifical ly discussed: L1-L2: The disc does not extend beyond the endplate margin. There is mild bilateral facet joint osteo arthritis. There is no neural foraminal stenosis. There is no central canal stenosis. L2-L3: The disc does not extend beyond the endplate margin. There is moderate bilateral facet joint o steoarthritis. There is no neural foraminal stenosis. There is no central canal stenosis. L3-L4: The disc does not extend beyond the endplate margin. There is moderate bilateral facet joint o steoarthritis. There is no neural foraminal stenosis. There is no central canal stenosis. L4-L5: The disc is bulging. There is severe right and moderate left facet joint osteoarthritis. There is mild bilateral neural foraminal stenosis. There is no central canal stenosis. L5-S1: There is a left subarticular and foraminal zone extrusion. There is moderate bilateral facet j oint osteoarthritis. There is mild right and moderate left neural foraminal stenosis. There is mild c entral canal stenosis. There is moderate stenosis of left lateral recess. IMPRESSION: 1. Moderate lower lumbar spondylosis with interval improvement in the extrusion at L5-S1. Reviewed, dictated and finalized at location A.
== END 2024-01-14 12:34 ==
PROVIDERS: PCP Neurological Surgery; Visit Provider Nurse Practitioner
DX: M47.26 Other spondylosis with radiculopathy, lumbar region (principal)
CPT/HCPCS: 72148

== ENCOUNTER 2024-02-26 09:10 | Emergency (ER) | payer BC, SELFPAY ==
--- NOTE | 2024-02-26 09:14 | ED.URI ---
HPI - URI/Sore Throat General Chief Complaint: Upper Respiratory Infection Stated Complaint: Fever/Confusion Time Seen by Provider: 02/26/24 09:45 Source: patient and RN notes reviewed Mode of arrival: ambulatory Limitations: no limitations History of Present Illness HPI Narrative: 21-year-old male presents concern for cough, fever, general malaise, body aches, sore throat, headache for 4 days. Reports he has been taking DayQuil and NyQuil without much relief. He reports episode of vomiting. Reports his daughter has similar symptoms. MD elicited complaint: cough and sore throat Related Data Allergies Allergy/AdvReac Type Severity Reaction Status Date / Time Iodinated Contrast Media Allergy Hives Verified 02/26/24 09:41 Contrast Media Allergy Intermediate Hives / Uncoded 02/11/24 14:41 Red Face Review of Systems Review of Systems: CONSTITUTIONAL: Reports malaise, chills, sweats, or fever. EYES: Denies visual changes, redness, or discharge. ENT: Denies rhinorrhea, congestion, sinus pain, otalgia. Reports sore throat. CARDIOVASCULAR: Denies chest pain, palpitations, or edema. RESPIRATORY: Reports cough. Denies dyspnea. GASTROINTESTINAL: Denies abdominal pain. Reports nausea, vomiting, diarrhea SKIN: Denies rash or itching. MUSCULOSKELETAL: Reports myalgia. NEUROLOGIC: Reports headache. All systems reviewed & are unremarkable except as noted in HPI and below PMFSH Past Medical History Medical History (Updated 02/26/24 @ 09:50 by Sandie Flannery NP) Anxiety Benign essential tremor syndrome Depression Fatty liver GERD (gastroesophageal reflux disease) IBS (irritable bowel syndrome) Lumbar disc herniation with radiculopathy Lumbosacral radiculopathy Obesity Spinal stenosis of lumbar region at multiple levels Surgical History Surgical History History of adenoidectomy History of ear surgery History of placement of ear tubes History of shoulder surgery History of tonsillectomy Previous back surgery Family History Family History Father Ulcerative colitis Heart disease Mother Leukemia Sibling Leukemia Other Hypertension Social History Social History Social History: Kelsey is somewhat confident filling out medical forms. In the last 12 months he has not received assistance from an organization or program. caffeine occasional Smoking status: Never smoker Alcohol intake: never Substance use: never Lack of Transportation: No Lack of Food: Never True Current Housing: I Have Housing Concerned About Future Housing: No Difficulty Paying Gas/Electric Bills: No Difficulty Paying for Meds: No Currently Unemployed: No Education: High School Diploma/GED Difficulty w/ Childcare or Family Care: No Living arrangements: alone Spiritual care concerns: No Comments At time of signature, agree with nursing past medical, surgical, social and family history. There is no relevant family history pertinent to the presenting complaint Exam Narrative: GENERAL: Well-appearing, well-nourished, and in no acute distress. HEAD: Normocephalic EYES: PERRLA, conjunctivae clear ENT: Nares clear. Mucous membranes moist. TM pearly granda with dull light reflex bilaterally; no tragal tenderness. Oropharynx not erythematous without lesions. Tonsils not enlarged and without exudate, no drooling, no hoarseness, no trismus, uvula midline. NECK: Supple. No lymphadenopathy CHEST: Scattered rhonchi the left lobe, Otherwise Clear to auscultation, breath sounds equal. No wheezing, rales, or stridor. No respiratory distress, speaks in full sentences. HEART: Regular rate and rhythm. No murmur heard. SKIN: Warm, dry, no rash. NEURO: Alert and oriented x3. PSYCH: Normal mood and affect Course Course Emergency Course: Patient is
[2024-02-26 09:33] VITALS: BP 121/78; PULSE 119; RESP 18; TEMP 38.7; O2SAT 97
== END 2024-02-26 10:08 | disposition home or self-care (01) ==
PROVIDERS: Emergency Provider Nurse Practitioner; PCP Internal Medicine
DX: J22 Unspecified acute lower respiratory infection (principal); K21.9 Gastro-esophageal reflux disease without esophagitis; E66.9 Obesity, unspecified; K76.0 Fatty (change of) liver, not elsewhere classified; M54.17 Radiculopathy, lumbosacral region; M48.061 Spinal stenosis, lumbar region without neurogenic claudication
CPT/HCPCS: 99213; G0463

== ENCOUNTER 2024-05-02 13:14 | Outpatient (CLI) | payer BC, SELFPAY ==
--- NOTE | ~2024-05-02 | XR_ITS ---
EXAMINATION: XR lumbar spine min 4V DATE: 05/02/2024 13:35 INDICATION: Spondylosis without myelopathy or radiculopathy. Chronic low back pain. TECHNIQUE: 5 views of lumbar spine including standing views and flexion and extension views were obta ined. COMPARISON: Lumbar spine radiographs 08/25/2022, 01/14/2024 FINDINGS: Alignment is normal. There is no abnormal motion with flexion or extension. Vertebral body heights are normal. There is mildly decreased disc height at L5-S1. There is multilevel mild facet norman int osteoarthritis. IMPRESSION: 1. Mild lumbar spondylosis. Reviewed, dictated and finalized at location A. RECEPTIONIST IMPRESSION: 1. Mild lumbar spondylosis.
== END 2024-05-02 13:15 | disposition home or self-care (01) ==
LOC: GOSHIMG 13:15
PROVIDERS: PCP Neurological Surgery; Visit Provider Neurological Surgery
DX: M47.816 Spondylosis without myelopathy or radiculopathy, lumbar region (principal)
CPT/HCPCS: 72110

== ENCOUNTER 2024-07-14 15:15 | Outpatient (CLI) | payer BC, SELFPAY ==
[2024-07-14 19:10] LABS: Basophils Absolute Auto 0.1 K/mm3 (0.0-0.1); Basophils Percent Auto 1.2 % (0.2-1.2); Eosinophils Absolute Auto 0.1 K/mm3 (0-0.3); Eosinophils Percent Auto 1.6 % (0-4.4); Hematocrit 48.3 % (42.0-52.0); Hemoglobin 16.7 g/dL (14.0-18.0); Immature Granulocyte Absolute 0.01 K/mm3 (0.00-0.031); Immature Granulocyte Percent A 0.1 % (0-0.5); Lymphocytes Absolute Auto 2.51 K/mm3 (0.9-3.2); Lymphocytes Percent Auto 37.2 % (18.3-44.2); Mean Corpuscular HGB Conc 34.6 g/dl (32-36); Mean Corpuscular Hemoglobin 29.1 pg (26-34); Mean Corpuscular Volume 84.1 fl (80-100); Mean Platelet Volume 9.6 fl (7.4-10.4); Monocytes Absolute Auto 0.6 K/mm3 (0.1-0.6); Monocytes Percent Auto 8.3 % (2.6-8.5); Neutrophils Absolute Auto 3.5 K/mm3 (1.3-6.7); Neutrophils Percent Auto 51.6 % (45.5-73.1); Platelet Count Result 254 k/mm3 (150-375); Red Blood Count 5.74 M/mm3 (4.6-6.20); Red Cell Distribution Width 11.9 % (11.5-14.5); White Blood Count 6.8 K/mm3 (4.5-10.0)
[2024-07-14 20:43] LABS: Alanine Aminotransferase 61 U/L (6-50); Albumin Level 4.9 g/dL (3.5-5.1); Alkaline Phosphatase 76 U/L (38-126); Anion Gap 11 mmol/L (4-12); Aspartate Amino Transferase 40 U/L (17-59); Bilirubin,Total 0.8 mg/dL (0.2-1.3); Blood Urea Nitrogen 14 mg/dL (9-20); Calcium 9.6 mg/dL (8.4-10.2); Carbon Dioxide 25 mmol/L (22-30); Chloride 104 mmol/L (98-107); Estimated Glomerular Filt Rate > 60; Glucose 87 mg/dL (65-110); Potassium 4.1 mmol/L (3.4-5.0); Sodium 140 mmol/L (137-145)
[2024-07-14 21:40] LABS: Vitamin D 25 Hydroxy 21.8 ng/mL
== END 2024-07-14 15:16 | disposition home or self-care (01) ==
LOC: ANHGOSHLAB 15:16
PROVIDERS: PCP Nurse Practitioner; Visit Provider Nurse Practitioner
DX: E55.9 Vitamin D deficiency, unspecified (principal); R53.83 Other fatigue; F41.9 Anxiety disorder, unspecified; F32.A Depression, unspecified
CPT/HCPCS: 36415; 80053; 82306; 84402; 84403; 84443; 85025

== ENCOUNTER 2024-10-12 14:59 | Outpatient (CLI) | payer BC, SELFPAY ==
--- OUTSIDE RECORDS SUMMARY | 2024-10-12 15:03 | XMS_ITS | Clinical Summary ---
Author Organization [facility] Address [address] [place] [address] Phone Care Team Providers Care Coordinator Of Health Services Name Role Phone Camacho Salguero MD Primary Care Provider [phone] Allergies Active Allergy Reactions Criticality Noted Date Comments Iodinated Contrast Media Rash 05/11/2016 Medications polyethylene glycol (GLYCOLAX, MIRALAX) Pack Take 1 Packet by mouth daily. Dissolve in 4-8 oz of liquid. 90 Packet 3 05/13/20 16 Active Additional Information Patient not taking.Reported on 02/11/2021 hydrocortisone (ANUSOL-HC) 25 MG Suppository 25 mg by Rectal route daily. 30 Suppository 1 05/13/20 16 Active Additional Information Patient not taking.Reported on 02/11/2021 Active Problems Problem Noted Date Diagnosed Date Abdominal pain 05/12/2016 Kidney stone 05/12/2016 Leukocytosis 05/12/2016 Otalgia Suppurative otitis media of right ear Eustachian tube dysfunction Hypertrophy, nasal, turbinate Resolved Problems Problem Noted Date Diagnosed Date Resolved Date Conductive hearing loss, middle ear 03/28/2015 Family History Medical History Relation Name Comments Ulcerative Colitis Father Cancer Maternal Grandmother Thyroid Disease Maternal Grandmother Cancer Mother Hypertension Paternal Grandfather Stroke Paternal Grandfather Diabetes Paternal Grandmother Hypertension Paternal Grandmother Relation Name Status Comments Father Maternal Grandmother Mother Paternal Grandfather Paternal Grandmother Social History Tobacco Use Types Packs/Day Years Used Date Smoking Tobacco: Never Smokeless Tobacco: Never Alcohol Use Standard Drinks/Week Comments No 0 (1 standard drink = 0.6 oz pur e alcohol) Sex and Gender Information Value Date Recorded Sex Assigned at Not on file Legal Sex Male 12:24 AM CDT Gender Identity Not on file Sexual Orientation Not on file Last Filed Vital Signs Vital Sign Reading Time Taken Comments Blood Pressure 140/80 02/11/2021 12:32 PM CDT Pulse 105 02/11/2021 12:32 PM CDT Temperature 36.8 C (98.2 F) 02/11/2021 12:32 PM CDT Respiratory Rate 18 02/11/2021 12:32 PM CDT Oxygen Saturation 98% 02/11/2021 12:32 PM CDT Inhaled Oxygen Concentration - - Weight 77.1 kg (170 lb) 02/11/2021 12:32 PM CDT Height 177.8 cm (5' 10) 05/11/2016 5:38 PM [employer] Body Mass Index 24.39 05/11/2016 5:38 PM [employer] Plan of Treatment Upcoming Encounters Date Type Department Care Team (Latest Contact Info) Description 11/09/2024 8:00 AM CDT Outpatient [facility] [address] [place] [address] Tono Garay PSYD [place] Discharge Disposition: Discharged to home or Selfcare 01/30/2025 8:00 AM CDT Outpatient [facility] [address] [place] [address] Tono Garay PSYD [place] Discharge Disposition: Discharged to home or Selfcare 03/02/2025 8:00 AM CDT Out[facility] [address] [place] [phone] Tono Garay PSYD [place] Discharge Disposition: Discharged to home or Selfcare Health Maintenance Due Date Last Done Comments Hepatitis C Virus (HCV) Screening 1996 TdaP Immunization 1996 Hepatitis B Immunization (1 of 3 - 19+ 3-dose series) 01/27/2015 SARS-COV-2 Immunization ( season) 2024 Influenza Immunization (Seas on Ended) 2025 Respiratory Syncytial Virus (RSV) Immunization (Adult) (1 - 1-dose 75+ series) 01/27/2071 Meningococcal Immunization (ACWY) Aged Out No longer eligible based on patient's age to complete this topic Pneumococcal Immunization Combined Aged Out No longer eligible based on patient's age to complete this topic Rotavirus Immunization Aged Out No lo nger eligible based on patient's age to complete this topic Insurance [facility] Advance Directives * Full Code (Latest Code Status on File) Date Activated Date Inactivated Comments 05/13/2016 2:23 PM 05/13/2016 9:29 PM CPR-Full T reatment: FULL ARREST: Attempt Resuscitation/CPR wit intubation and mechanical ventilation. PRE-ARREST: Use entire range of life support measures to stabilize the patient. Care Teams Coordinator Of Health Services Relationship Specialty Start Date End Date Camacho Salguero [place] [address] PCP - General Internal Medicine 05/11/16
--- OUTSIDE RECORDS SUMMARY | 2024-10-12 15:03 | XMS_ITS | Clinical Summary ---
Author Organization [facility] Healthcare Address [address] [place] [address] Care Team Providers Care Legislative Analyst Name Role Phone Edwin Melgoza HAIRSPRING STAKER Unavailable [phone] Carlos Becerra HAIRSPRING STAKER Unavailable [phone] Koko Daugherty DO Primary Care Provider [phone] Allergies Active Allergy Reactions Criticality Noted Date Comments Ioxaglate Sodium Rash Medium 05/11/2016 Iodinated Contrast Media Hives Medium 04/24/2017 Medications albuterol HFA (PROVENTIL HFA,VENTOLIN HFA,PROAIR HFA) 90 mcg/actuation inhaler 3 Active albuterol HFA (PROVENTIL HFA,VENTOLIN HFA,PROAIR HFA) 90 mcg/actuation inhaler Inhale 1-2 puffs every 6 (six) hours as needed for wheezing or shortness of breath 1 each 4 02/26/20 25 Active Active Problems Problem Noted Date Diagnosed Date Elevated transaminase level 09/08/2022 Assessment & Plan (09/08/2022 9:52 PM CDT): - noted on lab work - also noted to have diffuse hepatis steatosis on CT KUB stone 09/07 - obtain additional labs for other causes of elevated liver enzymes Hepatic steatosis 08/26/2022 Assessment & Plan (09/08/2022 9:54 PM CDT): - new diagnosis - noted on CT KUB stone - diffuse hepatic steatosis noted - has also has mild transaminase elevation - reports sister also has fatty liver - no alcohol consumption - repeat labs as shown below - obtain dedicated US liver, order placed - recommend weight loss and starting fish oil supplements Lab Results Component Value Date ALT 88 (H) 05/21/2022 AST 33 05/21/2022 ALKPHOS 71 05/21/2022 BILITOT 0.5 05/21/2022 CT KUB Stone 08/2022 IMPRESSION: No definite evidence of obstructive uropathy. Punctate nonobstructing left renal calculus. Circumferential mucosal thickening of the urinary bladder, which may be related to underdistention versus cystitis. Clinical correlation with urinary analysis is recommended as clinically indicated. No definite evidence of bowel obstruction. Mild mucosal thickening of the descending colon and sigmoid colon, which is likely related to underdistention and less likely mild colitis of infectious or inflammatory etiology. Scattered colonic diverticula without definite evidence of diverticulitis. Diffuse hepatic steatosis. Normal appendix. Hydrocele of testis 08/25/2022 Left testicular pain 08/25/2022 Left inguinal pain 08/25/2022 Acute midline low back pain without sciatica 02/2023 Family history of cardiovascular disease 022 Assessment & Plan (03/06/2022 5:21 AM CDT): - father about to undergo CABG x4 - check labs as ordered to be done prior to next visit - not a smoker, has obesity Body mass index is 33.29 kg/m . - work on managing weight and healthy diet Lab Results Component Value Date LDLCALC 127 08/31/2020 No results found for: HGBA1C History of chest pain 03/06/2022 Overview (03/06/2022): Patient also reports that when he was a child he was having some chest pain and had a heart monitor x3 between the Nicole of 3-7 and there was a possible working diagnosis of pericarditis although was not confirmed. Irritable bowel syndrome with diarrhea Assessment & Plan (06/05/2022 4:30 PM HANGAR ATTENDANT): - chronic, stable - uses Anusol for hemorrhoid cream per GI - no diarrhea , constipation, intermittent abdominal cramps - most recent Colonoscopy as shown below Colonoscopy 10/2021 Impression: - The entire examined colon is normal. Biopsied. - Internal hemorrhoids. Recommendation: - Repeat colonoscopy at age 46 for screening purposes. - Continue present medications. Gastroesophageal reflux disease with esophagitis 07/19/2021 Assessment & Plan (12/03/2021 1:32 PM CDT): - chronic, well controlled - s/p EGD on 07/2021 as shown below - currently on Pantoprazole DR 40 mg daily - it was initially started for 6 weeks, please ask how long he needs it for - continue current management for now S/p EGD 11/06 Impression: - Normal examined duodenum. - Erythematous mucosa in the prepyloric region of the stomach. Biopsied for LINDA. - Mild reflux erosive esophagitis. Biopsied. Rectal bleeding 07/07/2021 Assessment & Plan (12/03/2021 1:31 PM CDT): - chronic, recurrent condition - abdominal pain, intermittent for over a year, more recently started having blood with bowel movement - no significant rectal pain or constipation with this - father with UC, diagnosed in 20s - mother being evaluated for possible crohn's - patient has had a colonoscopy back in 2017 after hospitalization for about a week with normal findings Dr. Vasquez - he had similar symptoms of blood in stool and abdominal pain as well, after the Scope was told it may be Irritable bowel syndrome - referred to GI and established, has had Colonoscopy as shown below - currently using Hydrocortisone 2.5% rectal cream for internal hemorrhoids noted on Colonoscopy Colonoscopy 07/2021 Impression: - The entire examined colon is normal. Biopsied. - Internal hemorrhoids. Recommendation: - Repeat colonoscopy at age 46 for screening purposes. - Continue present medications. Assessment & Plan (07/07/2021 7:57 PM HANGAR ATTENDANT): - chronic, recurrent condition - abdominal pain, intermittent for over a year, more recently started having blood with bowel movement - no significant rectal pain or constipation with this - father with UC, diagnosed in 20s - mother being evaluated for possible crohn's - patient has had a colonoscopy back in 2017 after hospitalization for about a week with normal findings Dr. Vasquez - he had similar symptoms of blood in stool and abdominal pain as well, after the Scope was told it may be Irritable bowel syndrome - given length of time and recurrence of symptoms with blood in stool with family history recommend GASTROENTEROLOGY evaluation Family history of ulcerative colitis 07/01/2021 Assessment & Plan (07/07/2021 7:56 PM HANGAR ATTENDANT): - chronic, recurrent condition - abdominal pain, intermittent for over a year, more recently started having blood with bowel movement - no significant rectal pain or constipation with this - father with UC, diagnosed in 20s - mother being evaluated for possible crohn's - patient has had a colonoscopy back in [address] Vasquez - he had similar symptoms of blood in stool and abdominal pain as well, after the Scope was told it may be Irritable bowel syndrome - given length of time and recurrence of symptoms with blood in stool with family history recommend GASTROENTEROLOGY evaluation S/P tonsillectomy and adenoidectomy 12/21/2020 Moderate episode of recurrent major depressive d isorder 08/31/2020 Assessment & Plan (09/08/2022 9:56 PM CDT): - chronic, controlled, at goal - diagnosed with depression 07/2020 - depression - chronic, stable, at goal - anxiety - chronic, stable, at goal - hx of anxiety diagnosis for several years, even since childhood - In the past has tried Citalopram and Paroxetine, was on Sertraline 150mg daily - currently on Sertraline per psychiatry - also has Clonazepam 0.5 mg daily prn for anxiety which he does not use most of the time - no SI, HI, hallucinations, no drug use - good response, continue with current medications per psychiatry Assessment & Plan (07/23/2022 2:39 PM HANGAR ATTENDANT): - chronic, controlled, at goal - diagnosed with depression 07/2020 - depression - chronic, stable, at goal - anxiety - chronic, stable, at goal - hx of anxiety diagnosis for several years, even since childhood - In the past has tried Citalopram and Paroxetine, was on Sertraline 150mg daily - is now uptitrating his zoloft starting at 25 mg x 1 week, then 50 then 100 mg qweekly - following with psychiatry - continue with above regimen as per psychiatry - no SI, HI, hallucinations, no drug use - good response, continue with current medications Assessment & Plan (06/05/2022 4:29 PM HANGAR ATTENDANT): - chronic, controlled, at goal - diagnosed with depression 07/2020 - depression - chronic, stable, at goal - anxiety - chronic, stable, at goal - hx of anxiety diagnosis for several years, even since childhood - used to see psychiatry in the past - In the past has tried Citalopram and Paroxetine, was on Sertraline 150mg daily - no longer using Trazodone 50 mg nightly for sleep/insomnia - no longer on Sertraline 100 mg daily - no SI, HI, hallucinations, no drug use - good response, continue with current medications Assessment & Plan (07/07/2021 7:55 PM HANGAR ATTENDANT): - chronic, controlled, at goal - diagnosed with depression 07/2020 - depression - chronic, stable, at goal - anxiety - chronic, stable, at goal - hx of anxiety diagnosis for several years, even since childhood - used to see psychiatry in the past - In the past has tried Citalopram and Paroxetine, was on Sertraline 150mg daily - currently back on Sertraline 100 mg daily with good control - no longer using Trazodone 50 mg nightly for sleep/insomnia - no SI, HI, hallucinations, no drug use - good response, continue with current medications Assessment & Plan (04/01/2021 3:05 PM HANGAR ATTENDANT): - controlled, atgoal - diagnosed with depression 07/2020 - depression - chronic, stable, at goal - anxiety - chronic, stable, not at goal - hx of anxiety diagnosis for several years, even since childhood - has not been following his psychiatrist at [facility] specialist in [place] - In the past has tried Citalopram and Paroxetine, was on Sertraline 150mg daily - no longer using Trazodone 50 mg nightly for sleep/insomnia - no SI, HI, hallucinations, no drug use - having delusions - restart Sertraline, start 50mg and then uptitrate to 100mg daily Assessment & Plan (12/31/2020 8:07 PM CDT): - controlled, not at goal - diagnosed with depression 07/2020 - hx of anxiety diagnosis for several years, even since childhood - he follows with psychiatrist with [facility] specialist in [place] - In the past has tried Citalopram and Paroxetine - Currently on Sertraline 150 mg daily - used to be on Trazodone 50 mg nightly for insomnia which he no longer needs - no SI, HI, delusions, hallucinations, no drug use - continue with psychiatry follow up Assessment & Plan (08/31/2020 10:36 AM CDT): - diagnosed with depression 07/2020 - hx of anxiety diagnosis for several years, but recalls being anxious as long as he can remember - he follows with psychiatrist with [facility] specialist in [place] - recently started on Sertraline 25, 50, and now on 100 mg daily - currently on Trazodone 50 mg daily - no longer has a sleep issue since he has been on medications - no SI, HI, delusions, hallucinations, no drug use Annual physical exam 08/31/2020 Assessment & Plan (08/31/2020 9:39 AM CDT): - Acute concerns: no significant acute issues on this visit - Mental health: no significant psychiatric/mental health conditions affecting her day to day functioning - Dental health: Discussed importance of regular tooth brushing, flossing, and dental visits. - Nutrition: Stressed importance of moderation in sodium/caffeine intake, saturated fat and cholesterol, caloric balance, sufficient intake of fresh fruits, vegetables - Exercise: Stressed the importance of regular exercise, goal would be - Immunizations: Age and sex appropriate immunizations reviewed and offered History of kidney stones 08/31/2020 Overview (08/31/2020): - Hx of kidney stones in 2019, and - Both times id not require surgery and passed on their own Assessment & Plan (08/31/2020 9:39 AM CDT): - Hx of kidney stones in 2019, and - Both times id not require surgery and passed on their own Tremors of nervous system 08/31/2020 Assessment & Plan (04/01/2021 3:07 PM HANGAR ATTENDANT): - chronic, improved, at goal - worse when doing tasks but can be present at rest - worse with anxiety, and also triggered with anxiety at times - family history of essential tremors in uncle and paternal grandmother as well - no longer taking medications - propranolol at 40 mg BID-TID - important to manage anxiety well - most recent TSH as shown below - doing well off medication, continue current management Lab Results Component Value Date TSH 1.32 08/31/2020 Assessment & Plan (12/31/2020 8:15 PM CDT): - improved, not at goal - fine tremors of both hands, worse when doing tasks but can be present at rest - worse with anxiety, and also triggered with anxiety at times - family history of essential tremors in uncle and paternal grandmother as well - from description and history more likely to be essential - improved since he started taking propranolol at 40 mg BID, can increase to TID if needed - continue with current medication for now - important to manage anxiety well - most recent TSH as shown below Lab Results Component Value Date TSH 1.32 08/31/2020 Assessment & Plan (08/31/2020 10:35 AM CDT): - fine tremors of both hands, worse when doing tasks but can be present at rest - differentials include anxiety, hyperthyroidism, stimulants use, parkinson's but unlikely - no immediate family history of tremors - from description and history more likely to be essential - will do a trial of propranolol at 40 mg BID, start by taking once daily at first - will follow up in 3 months Class 1 obesity due to exces s calories without serious comorbidity with body mass index (BMI) of 32.0 to 32.9 in adult 09/09/2019 Assessment & Plan (09/08/2022 9:53 PM CDT): Wt Readings from Last 3 Encounters: 08/26/22 104.3 kg (230 lb) 08/25/22 104.3 kg (230 lb) 07/23/22 105.1 kg (231 lb 12.8 oz) Body mass index is 32.08 kg/m . - chronic condition, not at goal - BMI Follow-up includes: nutrition counseling, exercise counseling and education Assessment & Plan (07/23/2022 2:31 PM HANGAR ATTENDANT): Wt Readings from Last 3 Encounters: 07/23/22 105.1 kg (231 lb 12.8 oz) 06/05/22 106.6 kg (235 lb) 03/05/22 105.2 kg (232 lb) BMI Readings from Last 3 Encounters: 07/23/22 33.26 kg/m 06/05/22 33.72 kg/m 03/05/22 33.29 kg/m Not at goal of bmi <30 Continue diet and exercise BMI Follow-up includes: nutrition counseling and exercise counseling. Assessment & Plan (03/06/2022 5:22 AM CDT): Wt Readings from Last 3 Encounters: 03/05/22 105.2 kg (232 lb) 11/28/21 106.6 kg (235 lb) 10/21/21 108 kg (238 lb) Body mass index is 33.29 kg/m . - chronic, not at goal but improved, some weight loss noted, keep it up - BMI Follow-up includes: nutrition counseling, exercise counseling and education Assessment & Plan (12/03/2021 1:21 PM CDT): Wt Readings from Last 3 Encounters: 11/28/21 106.6 kg (235 lb) 10/21/21 108 kg (238 lb) 09/03/21 108 kg (238 lb) Body mass index is 33.72 kg/m . - chronic, not at goal but improved, some weight loss noted - BMI Follow-up includes: nutrition counseling, exercise counseling and education provided Assessment & Plan (04/01/2021 3:06 PM HANGAR ATTENDANT): Wt Readings from Last 3 Encounters: 03/22/21 100.5 kg (221 lb 9.6 oz) 12/21/20 97.7 kg (215 lb 4.8 oz) 08/31/20 91.6 kg (202 lb) Body mass index is 31.8 kg/m . - chronic, not at goal - BMI Follow-up includes: nutrition counseling, exercise counseling and education provided - Encouraged to eat a diet richer in fruits/veggies and decrease the intake of sugars and fats. Assessment & Plan (12/21/2020 3:41 PM CDT): Wt Readings from Last 3 Encounters: 12/21/20 97.7 kg (215 lb 4.8 oz) 08/31/20 91.6 kg (202 lb) 05/17/20 88 kg (194 lb) Body mass index is 30.89 kg/m . - BMI Follow-up includes: nutrition counseling, exercise counseling and education provided - Encouraged to eat a diet richer in fruits/veggies and decrease the intake of sugars and fats. Assessment & Plan (08/31/2020 9:40 AM CDT): Wt Readings from Last 3 Encounters: 08/31/20 91.6 kg (202 lb) 05/17/20 88 kg (194 lb) 05/10/20 88 kg (194 lb 0.1 oz) Body mass index is 28.98 kg/m . - BMI Follow-up includes: nutrition counseling, exercise counseling and education provided - Encouraged to eat a diet richer in fruits/veggies and decrease the intake of sugars and fats. Assessment & Plan (09/09/2019 3:47 PM CDT): Discussed healthy diet and importance of regular physical activity. BMI is acceptable for this patient. Congratulated on wt loss in past year. Hypertrophy, nasal, turbinate 02/11/2017 Generalized anxiety disorder 10/23/2016 Assessment & Plan (09/08/2022 9:56 PM CDT): - chronic, controlled, at goal - diagnosed with depression 07/2020 - depression - chronic, stable, at goal - anxiety - chronic, stable, at goal - hx of anxiety diagnosis for several years, even since childhood - In the past has tried Citalopram and Paroxetine, was on Sertraline 150mg daily - currently on Sertraline per psychiatry - also has Clonazepam 0.5 mg daily prn for anxiety which he does not use most of the time - no SI, HI, hallucinations, no drug use - good response, continue with current medications per psychiatry Assessment & Plan (06/11/2022 5:17 PM HANGAR ATTENDANT): - chronic, controlled, not at goal - diagnosed with depression 07/2020 - depression - chronic, stable, at goal - anxiety - chronic, stable, at goal - hx of anxiety diagnosis for several years, even since childhood - used to see psychiatry in the past - In the past has tried Citalopram and Paroxetine, was on Sertraline 150mg daily - currently back on Sertraline 100 mg daily with good control - no longer using Trazodone 50 mg nightly for sleep/insomnia - discussed option of using an as needed medication - Propranolol 10 mg BID PRN for anxiety script sent in - no SI, HI, hallucinations, no drug use - good response, continue with current medications Assessment & Plan (07/07/2021 7:54 PM HANGAR ATTENDANT): - chronic, controlled, at goal - diagnosed with depression 07/2020 - depression - chronic, stable, at goal - anxiety - chronic, stable, at goal - hx of anxiety diagnosis for several years, even since childhood - used to see psychiatry in the past - In the past has tried Citalopram and Paroxetine, was on Sertraline 150mg daily - currently back on Sertraline 100 mg daily with good control - no longer using Trazodone 50 mg nightly for sleep/insomnia - no SI, HI, hallucinations, no drug use - good response, continue with current medications Assessment & Plan (04/01/2021 3:05 PM HANGAR ATTENDANT): - controlled, atgoal - diagnosed with depression 07/2020 - depression - chronic, stable, at goal - anxiety - chronic, stable, not at goal - hx of anxiety diagnosis for several years, even since childhood - has not been following his psychiatrist at [facility] specialist in [place] - In the past has tried Citalopram and Paroxetine, was on Sertraline 150mg daily - no longer using Trazodone 50 mg nightly for sleep/insomnia - no SI, HI, hallucinations, no drug use - having delusions - restart Sertraline, start 50mg and then uptitrate to 100mg daily Assessment & Plan (12/31/2020 8:07 PM CDT): - controlled, not at goal - diagnosed with depression 07/2020 - hx of anxiety diagnosis for several years, even since childhood - he follows with psychiatrist with [facility] specialist in [place] - In the past has tried Citalopram and Paroxetine - Currently on Sertraline 150 mg daily - used to be on Trazodone 50 mg nightly for insomnia which he no longer needs - no SI, HI, delusions, hallucinations, no drug use - continue with psychiatry follow up Assessment & Plan (08/31/2020 10:37 AM CDT): - diagnosed with depression 07/2020 - hx of anxiety diagnosis for several years, but recalls being anxious as long as he can remember - he follows with psychiatrist with [facility] specialist in [place] - In the past has tried Citalopram and Paroxetine with outside provider without successs - recently started on Sertraline 25, 50, and now on 100 mg daily - currently on Trazodone 50 mg daily - no longer has a sleep issue since he has been on medications - no SI, HI, delusions, hallucinations, no drug use Assessment & Plan (09/09/2019 3:48 PM CDT): Has tried citalopram & paroxetine w/o improvement or w/SE. buspar 5mg bid sent to pharmacy. Will start w/1 tab daily x3 then increase to BID. Reviewed SE from Buspar. To make f/u appt in 5-7 weeks. Reviewed red flags. Hearing loss of right ear 02/07/2014 Assessment & Plan (08/31/2020 9:15 AM CDT): - due to recurrent right ear infection in childhood and recurrent tympanic membrane rupture - has decreased hearing in right eat from it Resolved Problems Problem Noted Date Diagnosed Date Resolved Date Cystitis 08/25/2022 09/08/2022 Gastroesophageal reflux dise ase without esophagitis 07/19/2021 11/28/2021 BPPV (benign paroxysmal posi tional vertigo), right 12/31/2020 06/05/2022 Subacromial impingement, left 03/15/2020 12/21/2020 Overview (03/15/2020): Added automatically from request for surgery [id number] Arthritis of left shoulder region 03/15/2020 12/21/2020 Overview (03/15/2020): Added automatically from request for surgery [id number] Chronic left shoulder pain 09/08/2019 0 09/09/2019 Refused influenza vaccine 04/29/2018 Tendinitis of left rotator cuff 06/15/2017 09/09/2019 Superior glenoid labrum lesi on of left shoulder 05/28/2017 09/09/2019 Eustachian tube dysfunction 02/11/2017 09/09/2019 Kidney stone 05/12/2016 09/09/2019 Leukocytosis 05/12/2016 09/09/2019 Adenoiditis 03/27/2014 09/09/2019 Overview (08/21/2016): Adenoiditis Tonsillitis 03/27/2014 09/09/2019 Overview (08/21/2016): Tonsillitis Asthma 02/07/2014 08/31/2020 Overview (08/21/2016): Asthma Pericarditis 02/07/2014 12/21/2020 Overview (08/21/2016): Pericarditis Immunizations Immunization Administration Dates Next Due DTaP 05/03/1997, 7,1996,03/30 DTaP, Unspecified 02/25/2002 Hep B, Adolescent or Pediatric 1996,1995,1996 HiB 1996,1996,1996 IPV 1996 Influenza LAIV (Nasal) 02/15/2013 Influenza, Quadrivalent, Spl it, Preservative Free, Intramuscular 06/05/2022,03/22/2021 Influenza, Unspecified 03/19/2021,2020(Deferred: Patient Refused),02/16/2020(Deferred: Patient Refused),02/16/2020(Deferred: Patient Refused),02/16/2020(Deferred: Patient Refused),06/25/2018(Deferred: Patient Refused),06/25/2018(Deferred: Patient Refused),04/29/2018(Deferred: Patient Refused),04/29/2018(Deferred: Patient Refused),03/05/2018(Deferred: Patient Refused),03/05/2018(Deferred: Patient Refused),01/07/2018(Deferred: Patient Refused),05/19/2017(Deferred: Patient Refused),05/18/2017(Deferred: Patient Refused),05/18/2017(Deferred: Patient Refused),05/18/2017(Deferred: Patient Refused),05/19/2016(Deferred: Patient Refused),05/19/2016(Deferred: Patient Refused) MMR 02/25/2002,02/01/1997 OPV 02/25/2002,1996,1996 TD Preservative Free 03/18/2010 Tdap 03/08/2023,06/14/2012 Varicella 02/01/1997 Surgical History Surgery Date Site/Laterality Comments EAR SURGERY Ear surgery OTHER SURGICAL HISTORY Fx L thumb OTHER SURGICAL HISTORY Fx R arm OTHER SURGICAL HISTORY Right Ear surgery several ADENOIDECTOMY Adenoidectomy TONSILLECTOMY Tonsillectomy SHOULDER DEBRIDEMENT 05/18/2019 - 05/17/2020 Left due to subacromial impingement COLONOSCOPY 06/02/2016 Normal Medical History Medical History Date Comments Hx Other Medical hearing difficu lties; Comments: GIOVANY 02/07/2014 - Hx Other Medical heart issues; C omments: GIOVANY 02/07/2014 - Hx Other Medical Tonsillectomy; Comments: CLAYTON 03/27/2014 - Hx Other Medical Adenoidectomy; Comments: CLAYTON 03/27/2014 - Asthma Asthma; Comments : SMITA 04/20/2014 - Hx Other Medical abnl heartbeat; Comments: SMITA 04/20/2014 - Hx Other Medical reconstruction right ear drum; Comments: TIML 04/20/2014 - Irritable bowel syndrome Kidney stone 05/12/2016 Superior glenoid labrum lesi on of left shoulder 05/28/2017 Pericarditis Depression 2020 Family History Medical History Relation Name Comments Other Father ulcer colonitis ; Diabetes Mother Other Mother Alive and well; Diabetes Other 1 Family history of Diabetes mellitus; Hypertension Other 2 Family history of Hypertension; Arthritis Other 3 Family history of Arthritis; Cancer Other 4 Family history of Cancer; Bleeding Disorder Other 5 Family his tory of Bleeding disorder; Coronary artery disease Other 6 Fami ly history of Coronary artery disease; Kidney disease Other 7 Family histor y of Renal disease; Seizures Other 8 Family history of Seizure disorder; Stroke Other 9 Family history of Stroke; Other Sister 2 cerebral palsey ; Other Sister 3 Alive and well; Relation Name Status Comments Father Alive Mother Alive Other 1 Other 2 Other 3 Other 4 Other 5 Other 6 Other 7 Other 8 Other 9 Sister 1 Alive Sister 2 Sister 3 Social History Tobacco Use Types Packs/Day Years Used Date Smoking Tobacco: Never Smokeless Tobacco: Never Tobacco Cessation:Counseling Given: Not Answered Alcohol Use Standard Drinks/Week Comments Yes 0 (1 standard drink = 0.6 oz pur e alcohol) occasionally PHQ-2 Answer Date Recorded PHQ-2 Total Score (If total score is 3 or more points, staff should administer the PHQ-9) 3 03/17/2024 PHQ-9 Answer Date Recorded PHQ-9 Total Score 18 03/17/2024 Personal Safety Answer Date Recorded Have you ever been in or are you currently in a harmful physical or emotional relationship or is someone making you feel afraid or unsafe? Denies 02/26/2024 Sex and Gender Information Value Date Recorded Sex Assigned at Not on file Legal Sex Male 11:16 PM HANGAR ATTENDANT Gender Identity Not on file Sexual Orientation Not on file Obstetrics History Last Filed Vital Signs Vital Sign Reading Time Taken Comments Blood Pressure 138/92 03/17/2024 2:50 PM CDT Pulse 110 03/17/2024 2:50 PM CDT Temperature 36.2 C (97.1 F) 02/26/2024 3:34 PM CDT Respiratory Rate 18 03/17/2024 2:50 PM CDT Oxygen Saturation 99% 03/17/2024 2:50 PM CDT Inhaled Oxygen Concentration - - Weight 110.7 kg (244 lb) 02/26/2024 10:51 AM CDT Height 180.3 cm (5' 11) 02/26/2024 10:51 AM CDT Body Mass Index 34.03 02/26/2024 10:51 AM CDT Plan of Treatment Health Maintenance Due Date Last Done Comments Varicella Vaccines (2 of 2 - 2-dose childhood series) 03/15/2013 02/01/1997 Regular Well Visit/Exam 18-64 01/27/2014 Pneumococcal vaccine <65 (1 of 2 - PCV) 01/27/2015 Influenza Vaccine (Season Ended) 2025 06/05/2022, 03/22/2021, 03/19/2021, Additional history exists Depression Screening 03/17/2025 03/17/2024, 03/17/2024, 08/26/2022, Additional history exists DTaP/Tdap/Td Vaccine (8 - Td or Tdap) 03/08/2033 03/08/2023, 06/14/2012, 03/18/2010, Additional history exists Hepatitis C Screening Completed 08/31/2020 HPV Vaccines Aged Out No longer eligi ble based on patient's age to complete this topic Procedures Procedure Name Priority Date/Time Associated Diagnosis Comments HEPATITIS C ANTIBODY Routine 08/31/2020 10:02 AM CDT Need for hepatitis C screening test from Last 3 Months or Most Recently Relevant to Health Maintenance Results * Hepatitis C antibody (08/31/2020 10:02 AM CDT) Hep C Ab Nonreactive Nonreactive SARAN ROLLINS ([place]) Comment: Interpretive Data Nonreactive: Antibodies to HCV not detected. Does NOT exclude the possibility of recent exposure to HCV. Equivocal: Equivocal for HCV antibodies. Supplemental molecular testing will be automatically performed to determine infection status in accordance with current CDC screening recommendations. Reactive: Positive for HCV antibodies. This may represent current or past HCV infection. Supplemental molecular testing will be automatically performed to determine current infection status in accordance with current CDC screening recommendations. Interpretive data was last revised on 2019. Testing performed by: [facility], [address] [place] [address], [place]., [address] Blood specimen (specimen) 08/31/2020 10:02 AM CDT 08/31/2020 4:02 PM CDT Marquis Holcomb MD LAB MICROBIOLOGY - GENE RAL ORDERABLES Final Result [facility] ([place]) [facility] [place] [address] from Last 3 Months or Most Recently Relevant to Health Maintenance Insurance [email or web address] ACCESS CHOICE [email or web address] ACCESS CHO[employer] Member Subscriber Plan / Payer (Ef fective 2019-Present) Name:Kelsey Zafar Relation to Subscriber:Self Name:Kelsey Zafar Payer ID:[id number] (NAIC) Type:[employer] Address: [place] [id number] [address] CHOICE PLUS [employer]M ACCESS CHOICE Advance Directives For more information, please contact: [phone] * Full Code (Latest Code Status on File) Date Activated Date Inactivated Comments 10/21/2021 10:39 AM 10/21/2021 5:20 PM * Full Code Date Activated Date Inactivated Comments 10/21/2021 10:38 AM 10/21/2021 10:39 AM Care Teams Legislative Analyst Relationship Specialty Start Date End Date Koko Daugherty DO [address] [place] [address] PCP - General Internal Medicine 03/08/23 Edwin Melgoza NP Nurse Practitioner Family Practice 05/26/22 Carlos Becerra NP [address] [place] [address] Nurse Practitioner Psychiatry 08/26/22
--- OUTSIDE RECORDS SUMMARY | 2024-10-12 15:03 | XMS_ITS | Referral Summary ---
Author Organization [facility] Healthcare Address [address] [place] [address] Care Team Providers Care Cap And Hat Production Supervisor Name Role Phone Edwin Melgoza ELECTRIC DETECTOR OPERATOR Unavailable [phone] Carlos Becerra ELECTRIC DETECTOR OPERATOR Unavailable [phone] Koko Daugherty DO Primary Care Provider [phone] Allergies Active Allergy Reactions Criticality Noted Date [...] diarrhea Assessment & Plan (06/05/2022 4:30 PM BAGGAGE CHECKER): - chronic, stable - uses Anusol for [...] medications. Assessment & Plan (07/07/2021 7:57 PM BAGGAGE CHECKER): - chronic, recurrent condition - abdominal pain, [...] 07/01/2021 Assessment & Plan (07/07/2021 7:56 PM BAGGAGE CHECKER): - chronic, recurrent condition - abdominal pain, [...] psychiatry Assessment & Plan (07/23/2022 2:39 PM BAGGAGE CHECKER): - chronic, controlled, at goal - diagnosed [...] medications Assessment & Plan (06/05/2022 4:29 PM BAGGAGE CHECKER): - chronic, controlled, at goal - diagnosed [...] medications Assessment & Plan (07/07/2021 7:55 PM BAGGAGE CHECKER): - chronic, controlled, at goal - diagnosed [...] medications Assessment & Plan (04/01/2021 3:05 PM BAGGAGE CHECKER): - controlled, atgoal - diagnosed with depression 07/2020 - depression - chronic, stable, at goal - anxiety - chronic, stable, not at goal - hx of anxiety diagnosis for several years, even since childhood - has not been following his psychiatrist at [facility] specialist in [place] - In the past has tried Citalopram [...] childhood - he follows with psychiatrist with [facility] specialist in [place] - In the past has tried Citalopram [...] remember - he follows with psychiatrist with [facility] specialist in [place] - recently started on Sertraline 25, 50, [...] 08/31/2020 Assessment & Plan (04/01/2021 3:07 PM BAGGAGE CHECKER): - chronic, improved, at goal - worse [...] education Assessment & Plan (07/23/2022 2:31 PM BAGGAGE CHECKER): Wt Readings from Last 3 Encounters: 07/23/22 [...] provided Assessment & Plan (04/01/2021 3:06 PM BAGGAGE CHECKER): Wt Readings from Last 3 Encounters: 03/22/21 [...] psychiatry Assessment & Plan (06/11/2022 5:17 PM BAGGAGE CHECKER): - chronic, controlled, not at goal - [...] medications Assessment & Plan (07/07/2021 7:54 PM BAGGAGE CHECKER): - chronic, controlled, at goal - diagnosed [...] medications Assessment & Plan (04/01/2021 3:05 PM BAGGAGE CHECKER): - controlled, atgoal - diagnosed with depression 07/2020 - depression - chronic, stable, at goal - anxiety - chronic, stable, not at goal - hx of anxiety diagnosis for several years, even since childhood - has not been following his psychiatrist at [facility] specialist in [place] - In the past has tried Citalopram [...] childhood - he follows with psychiatrist with [facility] specialist in [place] - In the past has tried Citalopram [...] remember - he follows with psychiatrist with [facility] specialist in [place] - In the past has tried Citalopram [...] (03/15/2020): Added automatically from request for surgery [id number] Arthritis of left shoulder region 03/15/2020 12/21/2020 Overview (03/15/2020): Added automatically from request for surgery [id number] Chronic left shoulder pain 09/08/2019 0 09/09/2019 [...] Preservative Free 03/18/2010 Tdap 03/08/2023,06/14/2012 Varicella 02/01/1997 Social History Tobacco Use Types Packs/Day Years [...] on file Legal Sex Male 11:16 PM BAGGAGE CHECKER Gender Identity Not on file Sexual Orientation [...] 02/26/2024 10:51 AM CDT Plan of Treatment Not on file Procedures Procedure Name Priority Date/Time Associated Diagnosis Comments HEPATITIS C ANTIBODY Routine 08/31/2020 10:02 AM CDT Need for hepatitis C screening test from Last 3 Months or Most Recently Relevant to Health Maintenance Results * Hepatitis C antibody (08/31/2020 10:02 AM CDT) Hep C Ab Nonreactive Nonreactive SARAN ROLLINS ([place]) Comment: Interpretive Data Nonreactive: Antibodies to HCV [...] revised on 2019. Testing performed by: [facility], [address] [place] [address]., [address] Blood specimen (specimen) 08/31/2020 10:02 AM CDT 08/31/2020 4:02 PM CDT us Marquis Holcomb MD LAB MICROBIOLOGY - GENE RAL ORDERABLES Final Result [facility]AN ROLLINS ([place]) 1 [facility] Department of [employer] [place], [place] [id number] from Last 3 Months or Most Recently Relevant to Health Maintenance Insurance [employer] ACCESS CHOICE [employer]M ACCESS CHOICE Member Subscriber Plan / Payer (Ef fective 2019-Present) Name:Kelsey Mueller Relation to Subscriber:Self Name:Kelsey Mueller Payer ID:[id number] (NAIC) Type:[employer] Address: [address] CHOICE PLUS [facility] ACCESS CHOICE Advance Directives For more information, please contact: [phone] * Full Code (Latest Code Status on File) Date Activated Date Inactivated Comments 10/21/2021 10:39 AM 10/21/2021 5:20 PM * Full Code Date Activated Date Inactivated Comments 10/21/2021 10:38 AM 10/21/2021 10:39 AM Care Teams Cap And Hat Production Supervisor Relationship Specialty Start Date End Date Koko Daugherty DO [address] [place] [address] PCP - General Internal Medicine 03/08/23 Edwin Melgoza NP Nurse Practitioner Family Practice 05/26/22 Carlos Becerra NP [address] [place] [address] Nurse Practitioner Psychiatry 08/26/22
[2024-10-12 19:34] LABS: Basophils Absolute Auto 0.1 K/mm3 (0.0-0.1); Basophils Percent Auto 1.1 % (0.2-1.2); Eosinophils Absolute Auto 0.2 K/mm3 (0-0.3); Eosinophils Percent Auto 2.1 % (0-4.4); Hematocrit 48.9 % (42.0-52.0); Hemoglobin 16.3 g/dL (14.0-18.0); Immature Granulocyte Absolute 0.03 K/mm3 (0.00-0.031); Immature Granulocyte Percent A 0.4 % (0-0.5); Lymphocytes Absolute Auto 2.44 K/mm3 (0.9-3.2); Lymphocytes Percent Auto 34.4 % (18.3-44.2); Mean Corpuscular HGB Conc 33.3 g/dl (32-36); Mean Platelet Volume 9.4 fl (7.4-10.4); Monocytes Absolute Auto 0.6 K/mm3 (0.1-0.6); Neutrophils Absolute Auto 3.8 K/mm3 (1.3-6.7); Platelet Count Result 266 k/mm3 (150-375); Red Blood Count 5.62 M/mm3 (4.6-6.20); Red Cell Distribution Width 12.5 % (11.5-14.5); White Blood Count 7.1 K/mm3 (4.5-10.0)
[2024-10-12 20:20] LABS: Alanine Aminotransferase 63 U/L (6-50); Albumin Level 4.9 g/dL (3.5-5.1); Alkaline Phosphatase 82 U/L (38-126); Anion Gap 12 mmol/L (4-12); Aspartate Amino Transferase 45 U/L (17-59); Bilirubin,Total 0.5 mg/dL (0.2-1.3); Blood Urea Nitrogen 17 mg/dL (9-20); Calcium 9.5 mg/dL (8.4-10.2); Carbon Dioxide 21 mmol/L (22-30); Chloride 106 mmol/L (98-107); Estimated Glomerular Filt Rate > 60; Glucose 89 mg/dL (65-110); Magnesium 2.5 mg/dL (1.6-2.3); Potassium 4.1 mmol/L (3.4-5.0); Sodium 139 mmol/L (137-145)
== END 2024-10-12 15:00 | disposition home or self-care (01) ==
LOC: ANHGOSHLAB 15:00
PROVIDERS: PCP Internal Medicine; Visit Provider Nurse Practitioner
DX: R00.0 Tachycardia, unspecified (principal); R00.2 Palpitations
CPT/HCPCS: 36415; 80053; 83735; 84443; 85025

== ENCOUNTER 2024-11-07 09:31 | Outpatient (CLI) | payer BC, SELFPAY ==
--- NOTE | 2024-11-07 09:35 | EST_ITS ---
Patient Info Name: Kelsey Mueller Age: 29 years : 1995 Gender: Male Ht: 71 in Wt: 235 lbs BSA: 2.34 m2 HR: 78 bpm BP: 139 / 91 mmHg Exam Date: 11/07/2024 9:35 AM Patient Status: O Admit Date: 11/07/2024 Exam Type: CA stress test treadmill A treadmill exercise stress test was performed. Staff Attending Provider: Cara Sneed Exercise Technologist: Nancy Cuevas Exercise Physician: Mike Dietrich DO Summary 1. 1. Negative Neeraj exercise stress test for ischemic ST changes by ECG criteria. 2. 2. Good functional capacity, achieving 12 METs of workload. 3. 3. Appropriate HR response to exercise. 4. 4. Appropriate HR recovery at 1 minute post exercise. 5. 5. No imaging with stress testing. 6. 6. Patient informed of the above results. Protocol: Neeraj Stress ECG Details Stage: REST Duration (min): 0 min : 56 sec Speed (mph): 0.0 Grade (%): 0 HR (bpm): 78 SBP (mmHg): 139 DBP (mmHg): 91 METS: --- Stage: REST Duration (min): 3 min : 29 sec Speed (mph): 0.0 Grade (%): 0 HR (bpm): 88 SBP (mmHg): 139 DBP (mmHg): 91 METS: --- Stage: STAGE 1 Duration (min): 1 min : 0 sec Speed (mph): 1.7 Grade (%): 10 HR (bpm): 112 SBP (mmHg): 139 DBP (mmHg): 91 METS: --- Stage: STAGE 1 Duration (min): 2 min : 0 sec Speed (mph): 1.7 Grade (%): 10 HR (bpm): 117 SBP (mmHg): 139 DBP (mmHg): 91 METS: --- Stage: STAGE 1 Duration (min): 3 min : 0 sec Speed (mph): 1.7 Grade (%): 10 HR (bpm): 116 SBP (mmHg): 161 DBP (mmHg): 81 METS: --- Stage: STAGE 2 Duration (min): 1 min : 0 sec Speed (mph): 2.5 Grade (%): 12 HR (bpm): 133 SBP (mmHg): 161 DBP (mmHg): 81 METS: --- Stage: STAGE 2 Duration (min): 2 min : 0 sec Speed (mph): 2.5 Grade (%): 12 HR (bpm): 132 SBP (mmHg): 135 DBP (mmHg): 78 METS: --- Stage: STAGE 2 Duration (min): 3 min : 0 sec Speed (mph): 2.5 Grade (%): 12 HR (bpm): 138 SBP (mmHg): 135 DBP (mmHg): 78 METS: --- Stage: STAGE 3 Duration (min): 1 min : 0 sec Speed (mph): 3.4 Grade (%): 14 HR (bpm): 156 SBP (mmHg): 130 DBP (mmHg): 67 METS: --- Stage: STAGE 3 Duration (min): 2 min : 0 sec Speed (mph): 3.4 Grade (%): 14 HR (bpm): 163 SBP (mmHg): 130 DBP (mmHg): 67 METS: --- Stage: STAGE 3 Duration (min): 3 min : 0 sec Speed (mph): 3.4 Grade (%): 14 HR (bpm): 164 SBP (mmHg): 165 DBP (mmHg): 63 METS: --- Stage: STAGE 4 Duration (min): 1 min : 0 sec Speed (mph): 4.2 Grade (%): 16 HR (bpm): 177 SBP (mmHg): 165 DBP (mmHg): 63 METS: --- Stage: STAGE 4 Duration (min): 1 min : 3 sec Speed (mph): 4.2 Grade (%): 16 HR (bpm): 178 SBP (mmHg): 165 DBP (mmHg): 63 METS: --- Stage: RECOVERY Duration (min): 0 min : 56 sec Speed (mph): 0.0 Grade (%): 0 HR (bpm): 143 SBP (mmHg): 164 DBP (mmHg): 65 METS: --- Stage: RECOVERY Duration (min): 1 min : 56 sec Speed (mph): 0.0 Grade (%): 0 HR (bpm): 121 SBP (mmHg): 164 DBP (mmHg): 65 METS: --- Stage: RECOVERY Duration (min): 2 min : 56 sec Speed (mph): 0.0 Grade (%): 0 HR (bpm): 111 SBP (mmHg): 166 DBP (mmHg): 69 METS: --- Stage: RECOVERY Duration (min): 3 min : 3 sec Speed (mph): 0.0 Grade (%): 0 HR (bpm): 110 SBP (mmHg): 166 DBP (mmHg): 69 METS: --- Rest HR: 88 bpm Peak HR: 179 bpm Rest Sys BP: 139 mmHg Peak Sys BP: 166 mmHg Max Pred HR: 192 bpm % Max Pred HR: 93 % Target HR: 163 bpm Max RPP: 29,714 bpm*mmHg Ramirez Score: -1 Termination Reason: Reached target heart rate or workload Cardiac Symptoms: Shortness of breath Max ST Seg Deviation: 2.20 mm Total Time: 10 min : 3 sec Rest Anderson BP: 91 mmHg Peak Anderson BP: 69 mmHg Angina Score: None Total METS: 12.1 Resting ECG Sinus rhythm. Stress ECG No ST changes. Arrhythmias None. Report Signatures
--- NOTE | 2024-11-24 12:10 | WPDHOLTEREM ---
Holter/Event Monitor Holter/Event Monitor Date of procedure: 11/07/24 Holter/Event Procedure: 3-7 Day Holter Monitor Indications: Palpitations Conclusion: 1. 5 days holter monitor on 11/07/24. 2. Underlying rhythm is sinus rhythm. HR range 53-181 bpm; average HR 94 bpm. HR at 181 bpm on 11/12/24 at 11:03 am. 3. There are rare premature supraventricular complexes. No supraventricular tachycardia. 4. No premature ventricular complexes. No ventricular tachycardia. 5. No significant pauses greater than 3 seconds. 6. Patient reports 1 episode of symptom of chest pain which demonstrates sinus rhythm at 89 bpm.
== END 2024-11-07 09:32 | disposition home or self-care (01) ==
PROVIDERS: PCP Internal Medicine; Visit Provider Nurse Practitioner
DX: R07.9 Chest pain, unspecified (principal); R00.2 Palpitations; Z82.49 Family history of ischemic heart disease and other diseases of the circulatory system
CPT/HCPCS: 93017; 93242

== ENCOUNTER 2024-12-14 14:16 | Outpatient (CLI) | payer BC, SELFPAY ==
--- OUTSIDE RECORDS SUMMARY | 2024-12-14 14:28 | XMS_ITS | Clinical Summary ---
Author Organization [facility] Address [address] [place] [address] Phone Care Team Providers Care Itinerant Teacher Assistant Name Role Phone Cara Sneed APRN, SENIOR CONSTRUCTION PROJECT MANAGER Primary Care Provider + Allergies Active Allergy Reactions Criticality Noted Date [...] Additional Information Patient not taking.Reported on 02/11/2021 buPROPion SR (Wellbutrin SR) 150 MG TABLET SR 12 HR Take 150 mg by mouth 2 times daily. Active venlafaxine (EFFEXOR) 100 MG Tablet Take 112.5 mg by mouth 3 times daily. Active Active Problems Problem Noted Date Diagnosed Date Unspecified neurodevelopmental disorder 11/11/19 25 Abdominal pain 05/12/2016 Kidney stone 05/12/2016 Leukocytosis 05/12/2016 Otalgia Suppurative otitis media of right ear Eustachian tube dysfunction Hypertrophy, nasal, turbinate Resolved Problems Problem Noted Date Diagnosed Date Resolved Date Conductive hearing loss, middle ear 03/28/2015 Encounters Date Type Department Care Team Description 11/09/2024 8:00 AM CDT [facility] [address] [place] [address] Tono Garay PSYD Unspecified neurodevelopmental disorder (Primary Dx); JOSE LUIS (generalized anxiety disorder); Major depressive disorder, recurrent episode, moderate (HCC) Discharge Disposition: Discharged to home or Selfcare 11/09/2024 Travel from Last 3 Months Family History Medical History Relation Name Comments Ulcerative Colitis Father Cancer Maternal Grandmother Thyroid Disease Maternal Grandmother Cancer Mother Hypertension Paternal Grandfather Stroke Paternal Grandfather Diabetes Paternal Grandmother Hypertension Paternal Grandmother Relation Name Status Comments Daughter 1 (5) Alive Daughter 2 (1) Alive Father Alive Maternal Grandmother Mother Alive Paternal Grandfather Paternal Grandmother Social History Tobacco Use Types Packs/Day Years Used Date Smoking Tobacco: Never Smokeless Tobacco: Never Alcohol Use Standard Drinks/Week Comments No 0 (1 standard drink = 0.6 oz pur e alcohol) Sexually Active Control Partners Comments Not Currently Female Reports h as a very low sex drive Sex and Gender Information Value Date Recorded [...] 177.8 cm (5' 10) 05/11/2016 5:38 PM FLAT SHEET MAKER Body Mass Index 24.39 05/11/2016 5:38 PM FLAT SHEET MAKER Plan of Treatment Upcoming Encounters Date Type Department Care Team (Latest Contact Info) Description 01/30/2025 8:00 AM CDT [facility] [address] [place] [phone] Tono Garay PSYD [place] Discharge Disposition: Discharged to home or Selfcare 03/02/2025 8:00 AM CDT Outpatient Clinic Visit [facility] [address] [place] [id number] Toon Garay PSYD [place] Discharge Disposition: Discharged to home or Selfcare Health Maintenance Due Date Last Done Comments Hepatitis C Virus (HCV) Screening 1995 Human Papillomavirus (HPV) Immunization (1 - Male 3-dose series) 01/27/2011 SARS-COV-2 Immunization ( season) 2024 Influenza Immunization (#1) 01/16/202505/18, 03/22/2021, 03/19/2021, Additional history exists Respiratory Syncytial Virus (RSV) Immunization (Adult) (1 - 1-dose 75+ series) 01/27/2071 Hepatitis B Immunization Completed 9[birth year] DTaP/Tdap/Td Immunization Discontinued 2022, 06/14/2012, 03/18/2010, Additional history exists TdaP Immunization Completed 03/08/2023, 06/14/2012 Meningococcal Immunization (ACWY) Aged Out No longer eligible based on patient's age to complete this topic Pneumococcal Immunization Combined Aged Out No longer eligible based on patient's age to complete this topic Rotavirus Immunization Aged Out No lo nger eligible based on patient's age to complete this topic Goals Goal Patient Goal Type Associated Problems Recent Progress Patient-Stated? Author Psychological assessment Behavioral Health No Tono Garay PSYD Note: Patient will participate fully in a psychological assessment within the next 60 days to determine the presence of a psychological condition such as ADHD. Insurance [facility] Advance Directives * Full Code (Latest Code Status on File) Date Activated Date Inactivated Comments 05/13/2016 2:23 PM 05/13/2016 9:29 PM CPR-Full T reatment: FULL ARREST: Attempt Resuscitation/CPR wit intubation and mechanical ventilation. PRE-ARREST: Use entire range of life support measures to stabilize the patient. Care Teams Itinerant Teacher Assistant Relationship Specialty Start Date End Date Cara Sneed APRN, SENIOR CONSTRUCTION PROJECT MANAGER [address] [facility] [address] [place] [address] PCP - General Advanced Practice Nurse 11/09/24
--- OUTSIDE RECORDS SUMMARY | 2024-12-14 14:28 | XMS_ITS | Referral Summary ---
Author Organization [facility] Healthcare Address [address] [place] [address] Care Team Providers Care Money Market Clerk Name Role Phone Edwin Melgoza DRILLING MACHINE OPERATOR Unavailable [phone] Carlos Becerra DRILLING MACHINE OPERATOR Unavailable [phone] Koko Daugherty DO Primary Care Provider [phone] Allergies Active Allergy Reactions Criticality Noted Date [...] diarrhea Assessment & Plan (06/05/2022 4:30 PM OIL WELL SERVICE OPERATOR HELPER): - chronic, stable - uses Anusol for [...] medications. Assessment & Plan (07/07/2021 7:57 PM OIL WELL SERVICE OPERATOR HELPER): - chronic, recurrent condition - abdominal pain, [...] 07/01/2021 Assessment & Plan (07/07/2021 7:56 PM OIL WELL SERVICE OPERATOR HELPER): - chronic, recurrent condition - abdominal pain, [...] psychiatry Assessment & Plan (07/23/2022 2:39 PM OIL WELL SERVICE OPERATOR HELPER): - chronic, controlled, at goal - diagnosed [...] medications Assessment & Plan (06/05/2022 4:29 PM OIL WELL SERVICE OPERATOR HELPER): - chronic, controlled, at goal - diagnosed [...] medications Assessment & Plan (07/07/2021 7:55 PM OIL WELL SERVICE OPERATOR HELPER): - chronic, controlled, at goal - diagnosed [...] medications Assessment & Plan (04/01/2021 3:05 PM OIL WELL SERVICE OPERATOR HELPER): - controlled, atgoal - diagnosed with depression 07/2020 - depression - chronic, stable, at goal - anxiety - chronic, stable, not at goal - hx of anxiety diagnosis for several years, even since childhood - has not been following his psychiatrist at [facility] specialist in [place] - In the past has tried Citalopram [...] childhood - he follows with psychiatrist with [facility] specialist in [place] - In the past has tried Citalopram [...] remember - he follows with psychiatrist with [facility] specialist in [place] - recently started on Sertraline 25, 50, [...] 08/31/2020 Assessment & Plan (04/01/2021 3:07 PM OIL WELL SERVICE OPERATOR HELPER): - chronic, improved, at goal - worse [...] education Assessment & Plan (07/23/2022 2:31 PM OIL WELL SERVICE OPERATOR HELPER): Wt Readings from Last 3 Encounters: 07/23/22 [...] provided Assessment & Plan (04/01/2021 3:06 PM OIL WELL SERVICE OPERATOR HELPER): Wt Readings from Last 3 Encounters: 03/22/21 [...] psychiatry Assessment & Plan (06/11/2022 5:17 PM OIL WELL SERVICE OPERATOR HELPER): - chronic, controlled, not at goal - [...] medications Assessment & Plan (07/07/2021 7:54 PM OIL WELL SERVICE OPERATOR HELPER): - chronic, controlled, at goal - diagnosed [...] medications Assessment & Plan (04/01/2021 3:05 PM OIL WELL SERVICE OPERATOR HELPER): - controlled, atgoal - diagnosed with depression 07/2020 - depression - chronic, stable, at goal - anxiety - chronic, stable, not at goal - hx of anxiety diagnosis for several years, even since childhood - has not been following his psychiatrist at [facility] specialist in [place] - In the past has tried Citalopram [...] childhood - he follows with psychiatrist with [facility] specialist in [place] - In the past has tried Citalopram [...] remember - he follows with psychiatrist with [facility] specialist in [place] - In the past has tried Citalopram [...] (03/15/2020): Added automatically from request for surgery [id number] Arthritis of left shoulder region 03/15/2020 12/21/2020 Overview (03/15/2020): Added automatically from request for surgery [id number] Chronic left shoulder pain 09/08/2019 0 09/09/2019 [...] on file Legal Sex Male 11:16 PM OIL WELL SERVICE OPERATOR HELPER Gender Identity Not on file Sexual Orientation [...] Hep C Ab Nonreactive Nonreactive SARAN ROLLINS ([place]) Comment: Interpretive Data Nonreactive: Antibodies to HCV [...] last revised on 2019. Testing performed by: [facility], [address] [place] [address]., [id number] Blood specimen (specimen) 08/31/2020 10:02 AM CDT 08/31/2020 4:02 PM CDT us Marquis Holcomb MD LAB MICROBIOLOGY - GENE RAL ORDERABLES Final Result SARAN ROLLINS ([place]) 1 [facility] Department of [employer] [place], [place] [id number] from Last 3 Months or Most Recently Relevant to Health Maintenance Insurance ANTHEM ACCESS CHOICE ANTHEM ACCESS CHOICE Member Subscriber Plan / Payer (Ef fective 2019-Present) Name:Kelsey Mueller Relation to Subscriber:Self Name:Kelsey Mueller Payer ID:[id number] (NAIC) Type:[employer] Address: [address] CHOICE PLUS [facility] ACCESS CHOICE Advance Directives For more information, please contact: [phone] * Full Code (Latest Code Status on File) Date Activated Date Inactivated Comments 10/21/2021 10:39 AM 10/21/2021 5:20 PM * Full Code Date Activated Date Inactivated Comments 10/21/2021 10:38 AM 10/21/2021 10:39 AM Care Teams Money Market Clerk Relationship Specialty Start Date End Date Koko Daugherty DO [address] [place] [id number] PCP - General Internal Medicine 03/08/23 Edwin Melgoza NP Nurse Practitioner Family Practice 05/26/22 Carlos Becerra NP [address] [place] [id number] Nurse Practitioner Psychiatry 08/26/22
--- OUTSIDE RECORDS SUMMARY | 2024-12-14 14:28 | XMS_ITS | Clinical Summary ---
Author Organization [facility] Healthcare Address [address] [place] [address] Care Team Providers Care Art Coordinator Name Role Phone Edwin Melgoza CONTACT LENS INSPECTOR Unavailable [phone] Carlos Becerra CONTACT LENS INSPECTOR Unavailable [phone] Koko Daugherty DO Primary Care Provider [phone] Allergies Active Allergy Reactions Criticality Noted Date [...] diarrhea Assessment & Plan (06/05/2022 4:30 PM POWER LINEMAN TECHNICIAN): - chronic, stable - uses Anusol for [...] medications. Assessment & Plan (07/07/2021 7:57 PM POWER LINEMAN TECHNICIAN): - chronic, recurrent condition - abdominal pain, [...] 07/01/2021 Assessment & Plan (07/07/2021 7:56 PM POWER LINEMAN TECHNICIAN): - chronic, recurrent condition - abdominal pain, [...] psychiatry Assessment & Plan (07/23/2022 2:39 PM POWER LINEMAN TECHNICIAN): - chronic, controlled, at goal - diagnosed [...] medications Assessment & Plan (06/05/2022 4:29 PM POWER LINEMAN TECHNICIAN): - chronic, controlled, at goal - diagnosed [...] medications Assessment & Plan (07/07/2021 7:55 PM POWER LINEMAN TECHNICIAN): - chronic, controlled, at goal - diagnosed [...] medications Assessment & Plan (04/01/2021 3:05 PM POWER LINEMAN TECHNICIAN): - controlled, atgoal - diagnosed with depression 07/2020 - depression - chronic, stable, at goal - anxiety - chronic, stable, not at goal - hx of anxiety diagnosis for several years, even since childhood - has not been following his psychiatrist at [facility] specialist in [place] - In the past has tried Citalopram [...] childhood - he follows with psychiatrist with [facility] specialist in [place] - In the past has tried Citalopram [...] remember - he follows with psychiatrist with [facility] specialist in [place] - recently started on Sertraline 25, 50, [...] 08/31/2020 Assessment & Plan (04/01/2021 3:07 PM POWER LINEMAN TECHNICIAN): - chronic, improved, at goal - worse [...] education Assessment & Plan (07/23/2022 2:31 PM POWER LINEMAN TECHNICIAN): Wt Readings from Last 3 Encounters: 07/23/22 [...] provided Assessment & Plan (04/01/2021 3:06 PM POWER LINEMAN TECHNICIAN): Wt Readings from Last 3 Encounters: 03/22/21 [...] psychiatry Assessment & Plan (06/11/2022 5:17 PM POWER LINEMAN TECHNICIAN): - chronic, controlled, not at goal - [...] medications Assessment & Plan (07/07/2021 7:54 PM POWER LINEMAN TECHNICIAN): - chronic, controlled, at goal - diagnosed [...] medications Assessment & Plan (04/01/2021 3:05 PM POWER LINEMAN TECHNICIAN): - controlled, atgoal - diagnosed with depression 07/2020 - depression - chronic, stable, at goal - anxiety - chronic, stable, not at goal - hx of anxiety diagnosis for several years, even since childhood - has not been following his psychiatrist at [facility] specialist in [place] - In the past has tried Citalopram [...] childhood - he follows with psychiatrist with [facility] specialist in [place] - In the past has tried Citalopram [...] remember - he follows with psychiatrist with [facility] specialist in [place] - In the past has tried Citalopram [...] (03/15/2020): Added automatically from request for surgery [id number] Arthritis of left shoulder region 03/15/2020 12/21/2020 Overview (03/15/2020): Added automatically from request for surgery [id number] Chronic left shoulder pain 09/08/2019 0 09/09/2019 [...] on file Legal Sex Male 11:16 PM POWER LINEMAN TECHNICIAN Gender Identity Not on file Sexual Orientation [...] <65 (1 of 2 - PCV) 01/27/2015 HPV Vaccines (1 - 3-dose SCD M series) 01/27/2023 Influenza Vaccine (#1) 2025 , 03/22/2021, 03/19/2021, Additional history exists Depression Screening 03/17/2025 03/17/2024, 03/17/2024, 08/26/2022, Additional history exists DTaP/Tdap/Td Vaccine (8 - Td or Tdap) 03/08/2033 03/08/2023, 06/14/2012, 03/18/2010, Additional history exists Hepatitis C Screening Completed 08/31/2020 Procedures Procedure Name Priority Date/Time Associated Diagnosis [...] last revised on 2019. Testing performed by: [facility], [address] [place] [address], [place]., [address] Blood specimen (specimen) 08/31/2020 10:02 AM CDT 08/31/2020 4:02 PM CDT Marquis Holcomb MD LAB MICROBIOLOGY - GENE RAL ORDERABLES Final Result [facility] ([facility]) 1 [facility] Department [place] [address] from Last 3 Months or Most Recently Relevant to Health Maintenance Insurance [employer] ACCESS CHOICE [employer] ACCESS CHOICE Member Subscriber Plan / Payer (Ef fective 2019-Present) Name:Kelsey Zafar Relation to Subscriber:Self Name:Kelsey Zafar Payer ID:[id number] (NAIC) Type:[employer] Address: [place] [phone] [address] CHOICE PLUS ANTHEM ACCESS CHOICE Advance Directives For more information, please contact: [phone] * Full Code (Latest Code Status on File) Date Activated Date Inactivated Comments 10/21/2021 10:39 AM 10/21/2021 5:20 PM * Full Code Date Activated Date Inactivated Comments 10/21/2021 10:38 AM 10/21/2021 10:39 AM Care Teams Art Coordinator Relationship Specialty Start Date End Date Koko Daugherty DO [address] [place] [address] PCP - General Internal Medicine 03/08/23 Edwin Melgoza NP Nurse Practitioner Family Practice 05/26/22 Carlos Becerra NP [address] [place] [address] Nurse Practitioner Psychiatry 08/26/22
== END 2024-12-14 14:17 | disposition home or self-care (01) ==
PROVIDERS: PCP Nurse Practitioner; Visit Provider Nurse Practitioner
DX: H90.3 Sensorineural hearing loss, bilateral (principal); Z82.2 Family history of deafness and hearing loss; E55.9 Vitamin D deficiency, unspecified
CPT/HCPCS: 92557; 92567

== ENCOUNTER 2025-01-11 12:53 | Emergency (ER) | payer BC, SELFPAY ==
--- NOTE | ~2025-01-11 | XR_ITS ---
XR lumbar spine 2-3V Indication: low back pain, prior surgery W/LEFT LEG RADICULOPATHY Comparison: None Findings: The vertebral heights are intact. No fracture or subluxation. The disc heights are intact. Soft tissues unremarkable Impression: No acute abnormality. Reviewed, dictated and finalized at location A. Impression: No acute abnormality.
[2025-01-11 12:58] VITALS: BP 162/101; PULSE 100; RESP 16; TEMP 36.2; O2SAT 98
--- OUTSIDE RECORDS SUMMARY | 2025-01-11 13:02 | XMS_ITS | Clinical Summary ---
Author Organization [facility] Address [address] [place] [address] Phone Care Team Providers Care Tiedown Operator Name Role Phone Cara Sneed APRN, [employer] Primary Care Provider + Allergies Active Allergy [...] 11/09/2024 8:00 AM CDT Outpatient [facility] [address] [place] [address] Tono Garay PSYD Unspecified neurodevelopmental disorder (Primary [...] 177.8 cm (5' 10) 05/11/2016 5:38 PM GUIDE DOG INSTRUCTOR Body Mass Index 24.39 05/11/2016 5:38 PM GUIDE DOG INSTRUCTOR Plan of Treatment Upcoming Encounters Date Type Department Care Team (Latest Contact Info) Description 01/30/2025 8:00 AM CDT Outpatient [facility] [address] [place] [id number] Tono Garay PSYD [place] Discharge Disposition: Discharged to home or Selfcare 03/02/2025 8:00 AM CDT Outpatient Clinic Visit [facility] [address] [place] [phone] Tono Garay PSYD [place] Discharge Disposition: Discharged to home or Selfcare Health Maintenance Due Date Last Done Comments Hepatitis C Virus (HCV) Screening 1996 Human Papillomavirus (HPV) Immunization (1 - 3-dose SCDM series) 01/27/2023 SARS-COV-2 Immunization ( season) 2024 Influenza Immunization [...] a psychological condition such as ADHD. Insurance [facility] Advance Directives * Full Code (Latest Code Status on File) Date Activated Date Inactivated Comments 05/13/2016 2:23 PM 05/13/2016 9:29 PM CPR-Full T reatment: FULL ARREST: Attempt Resuscitation/CPR wit intubation and mechanical ventilation. PRE-ARREST: Use entire range of life support measures to stabilize the patient. Care Teams Tiedown Operator Relationship Specialty Start Date End Date Cara Sneed APRN, [employer] [address] [facility] [address] [place] [address] PCP - General Advanced Practice Nurse 11/09/24
--- OUTSIDE RECORDS SUMMARY | 2025-01-11 13:02 | XMS_ITS | Clinical Summary ---
Author Organization [facility] Healthcare Address [address] [place] [address] Care Team Providers Care Hydroelectric Production Manager Name Role Phone Edwin Melgoza STAFF PSYCHOLOGIST Unavailable [phone] Carlos Becerra STAFF PSYCHOLOGIST Unavailable [phone] Koko Daugherty DO Primary Care Provider [phone] Allergies Active Allergy Reactions Criticality Noted Date [...] diarrhea Assessment & Plan (06/05/2022 4:30 PM ANIMAL TECHNICIAN): - chronic, stable - uses Anusol [...] medications. Assessment & Plan (07/07/2021 7:57 PM ANIMAL TECHNICIAN): - chronic, recurrent condition - abdominal [...] 07/01/2021 Assessment & Plan (07/07/2021 7:56 PM ANIMAL TECHNICIAN): - chronic, recurrent condition - abdominal [...] psychiatry Assessment & Plan (07/23/2022 2:39 PM ANIMAL TECHNICIAN): - chronic, controlled, at goal - [...] medications Assessment & Plan (06/05/2022 4:29 PM ANIMAL TECHNICIAN): - chronic, controlled, at goal - [...] medications Assessment & Plan (07/07/2021 7:55 PM ANIMAL TECHNICIAN): - chronic, controlled, at goal - [...] medications Assessment & Plan (04/01/2021 3:05 PM ANIMAL TECHNICIAN): - controlled, atgoal - diagnosed with depression 07/2020 - depression - chronic, stable, at goal - anxiety - chronic, stable, not at goal - hx of anxiety diagnosis for several years, even since childhood - has not been following his psychiatrist at [facility] specialist in [place] - In the past has tried Citalopram [...] - he follows with psychiatrist with [facility] specialist in [place] - In the past has tried Citalopram [...] - he follows with psychiatrist with [facility] specialist in [place] - recently started on Sertraline 25, 50, [...] 08/31/2020 Assessment & Plan (04/01/2021 3:07 PM ANIMAL TECHNICIAN): - chronic, improved, at goal - [...] education Assessment & Plan (07/23/2022 2:31 PM ANIMAL TECHNICIAN): Wt Readings from Last 3 Encounters: [...] provided Assessment & Plan (04/01/2021 3:06 PM ANIMAL TECHNICIAN): Wt Readings from Last 3 Encounters: [...] psychiatry Assessment & Plan (06/11/2022 5:17 PM ANIMAL TECHNICIAN): - chronic, controlled, not at goal [...] medications Assessment & Plan (07/07/2021 7:54 PM ANIMAL TECHNICIAN): - chronic, controlled, at goal - [...] medications Assessment & Plan (04/01/2021 3:05 PM ANIMAL TECHNICIAN): - controlled, atgoal - diagnosed with depression 07/2020 - depression - chronic, stable, at goal - anxiety - chronic, stable, not at goal - hx of anxiety diagnosis for several years, even since childhood - has not been following his psychiatrist at [facility] specialist in [place] - In the past has tried Citalopram [...] - he follows with psychiatrist with [facility] specialist in [place] - In the past has tried Citalopram [...] - he follows with psychiatrist with [facility] specialist in [place] - In the past has tried Citalopram [...] (03/15/2020): Added automatically from request for surgery [id number] Arthritis of left shoulder region 03/15/2020 12/21/2020 Overview (03/15/2020): Added automatically from request for surgery [id number] Chronic left shoulder pain 09/08/2019 0 09/09/2019 [...] on file Legal Sex Male 11:16 PM ANIMAL TECHNICIAN Gender Identity Not on file Sexual [...] last revised on 2019. Testing performed by: [facility], [address] [place] [address], [place]., [address] Blood specimen (specimen) 08/31/2020 10:02 AM CDT 08/31/2020 4:02 PM CDT Marquis Holcomb MD LAB MICROBIOLOGY - GENE RAL ORDERABLES Final Result [facility] ([place]) 1 [facility] [place] [address] from Last 3 Months or Most Recently Relevant to Health Maintenance Insurance Tag'By ACCESS CHOICE Tag'By ACCESS CHOICE Member Subscriber Plan / Payer (Ef fective 2019-Present) Name:Kelsey Zafar Relation to Subscriber:Self Name:Kelsey Zafar Payer ID:[id number] (NAIC) Type:[employer] Address: [place] [phone] CHOICE PLUS [facility] HMO/PPO Address: [address] [address] [place] [address] ANTHEM ACCESS CHOICE Advance Directives For more information, please contact: [phone] * Full Code (Latest Code Status on File) Date Activated Date Inactivated Comments 10/21/2021 10:39 AM 10/21/2021 5:20 PM * Full Code Date Activated Date Inactivated Comments 10/21/2021 10:38 AM 10/21/2021 10:39 AM Care Teams Hydroelectric Production Manager Relationship Specialty Start Date End Date Koko Daugherty DO [address] [place] [address] PCP - General Internal Medicine 03/08/23 Edwin Melgoza NP Nurse Practitioner Family Practice 05/26/22 Carlos Becerra NP [address] [place] [address] Nurse Practitioner Psychiatry 08/26/22
--- OUTSIDE RECORDS SUMMARY | 2025-01-11 14:07 | XMS_ITS | Clinical Summary ---
Author Organization [facility] Healthcare Address [address] [place] [address] Care Team Providers Care Superintendent Geophysical Laboratory Name Role Phone Edwin Melgoza EKG/ECG TECHNICIAN Unavailable [phone] Calros Becerra EKG/ECG TECHNICIAN Unavailable [phone] Koko Daugherty DO Primary Care Provider [phone] Allergies Active Allergy Reactions Criticality Noted Date [...] diarrhea Assessment & Plan (06/05/2022 4:30 PM SHOWROOM CONSULTANT): - chronic, stable - uses Anusol for [...] medications. Assessment & Plan (07/07/2021 7:57 PM SHOWROOM CONSULTANT): - chronic, recurrent condition - abdominal pain, [...] 07/01/2021 Assessment & Plan (07/07/2021 7:56 PM SHOWROOM CONSULTANT): - chronic, recurrent condition - abdominal pain, [...] psychiatry Assessment & Plan (07/23/2022 2:39 PM SHOWROOM CONSULTANT): - chronic, controlled, at goal - diagnosed [...] medications Assessment & Plan (06/05/2022 4:29 PM SHOWROOM CONSULTANT): - chronic, controlled, at goal - diagnosed [...] medications Assessment & Plan (07/07/2021 7:55 PM SHOWROOM CONSULTANT): - chronic, controlled, at goal - diagnosed [...] medications Assessment & Plan (04/01/2021 3:05 PM SHOWROOM CONSULTANT): - controlled, atgoal - diagnosed with depression 07/2020 - depression - chronic, stable, at goal - anxiety - chronic, stable, not at goal - hx of anxiety diagnosis for several years, even since childhood - has not been following his psychiatrist at [facility] specialist in [place] - In the past has tried Citalopram [...] with [facility] specialist in [place] - In the past has tried Citalopram [...] with [facility] specialist in [place] - recently started on Sertraline 25, 50, [...] 08/31/2020 Assessment & Plan (04/01/2021 3:07 PM SHOWROOM CONSULTANT): - chronic, improved, at goal - worse [...] education Assessment & Plan (07/23/2022 2:31 PM SHOWROOM CONSULTANT): Wt Readings from Last 3 Encounters: 07/23/22 [...] provided Assessment & Plan (04/01/2021 3:06 PM SHOWROOM CONSULTANT): Wt Readings from Last 3 Encounters: 03/22/21 [...] psychiatry Assessment & Plan (06/11/2022 5:17 PM SHOWROOM CONSULTANT): - chronic, controlled, not at goal - [...] medications Assessment & Plan (07/07/2021 7:54 PM SHOWROOM CONSULTANT): - chronic, controlled, at goal - diagnosed [...] medications Assessment & Plan (04/01/2021 3:05 PM SHOWROOM CONSULTANT): - controlled, atgoal - diagnosed with depression 07/2020 - depression - chronic, stable, at goal - anxiety - chronic, stable, not at goal - hx of anxiety diagnosis for several years, even since childhood - has not been following his psychiatrist at [facility] specialist in [place] - In the past has tried Citalopram [...] with [facility] specialist in [place] - In the past has tried Citalopram [...] with [facility] specialist in [place] - In the past has tried Citalopram [...] (03/15/2020): Added automatically from request for surgery [id number] Arthritis of left shoulder region 03/15/2020 12/21/2020 Overview (03/15/2020): Added automatically from request for surgery [id number] Chronic left shoulder pain 09/08/2019 0 09/09/2019 [...] on file Legal Sex Male 11:16 PM SHOWROOM CONSULTANT Gender Identity Not on file Sexual Orientation [...] last revised on 2019. Testing performed by: [facility], [address] [place] [address], [place]., [address] Blood specimen (specimen) 08/31/2020 10:02 AM CDT 08/31/2020 4:02 PM CDT Marquis Holcomb MD LAB MICROBIOLOGY - GENE RAL ORDERABLES Final Result [facility] ([employer]) 1 [facility] Department [place] [address] from Last 3 Months or Most Recently Relevant to Health Maintenance Insurance Sleep Number ACCESS CHOICE Sleep Number ACCESS CHOICE Member Subscriber Plan / Payer (Ef fective 2019-Present) Name:Kelsey Zafar Relation to Subscriber:Self Name:Kelsey Zafar Payer ID:[id number] (NAIC) Type:[facility] Address: [place] [phone] CHOICE PLUS ANTHEM ACCESS CHOICE Advance Directives For more information, please contact: [phone] * Full Code (Latest Code Status on File) Date Activated Date Inactivated Comments 10/21/2021 10:39 AM 10/21/2021 5:20 PM * Full Code Date Activated Date Inactivated Comments 10/21/2021 10:38 AM 10/21/2021 10:39 AM Care Teams Superintendent Geophysical Laboratory Relationship Specialty Start Date End Date Koko Daugherty DO [address] [place] [address] PCP - General Internal Medicine 03/08/23 Edwin Melgoza NP Nurse Practitioner Family Practice 05/26/22 Carlos Becerra NP [address] [place] [address] Nurse Practitioner Psychiatry 08/26/22
--- OUTSIDE RECORDS SUMMARY | 2025-01-11 14:07 | XMS_ITS | Clinical Summary ---
Author Organization [facility] Address [address] [place] [address] Phone Care Team Providers Care Environmental Air Specialist Name Role Phone Cara Sneed APRN, GROUND SERVICE EQUIPMENT MECHANIC Primary Care Provider + Allergies Active Allergy [...] 11/09/2024 8:00 AM CDT [facility] [address] [place] [id number] Tono Garay PSYD Unspecified neurodevelopmental disorder (Primary [...] 177.8 cm (5' 10) 05/11/2016 5:38 PM PRODUCER Body Mass Index 24.39 05/11/2016 5:38 PM PRODUCER Plan of Treatment Upcoming Encounters Date Type Department Care Team (Latest Contact Info) Description 01/30/2025 8:00 AM CDT [facility] [address] [place] [id number] Tono Garay PSYD [place] Discharge Disposition: Discharged to home or Selfcare 03/02/2025 8:00 AM CDT Outpatient Clinic Visit [facility] [address] [place] [id number] Tono Garay PSYD [place] Discharge Disposition: Discharged to home or Selfcare [...] a psychological condition such as ADHD. Insurance [facility] Advance Directives * Full Code (Latest Code Status on File) Date Activated Date Inactivated Comments 05/13/2016 2:23 PM 05/13/2016 9:29 PM CPR-Full T reatment: FULL ARREST: Attempt Resuscitation/CPR wit intubation and mechanical ventilation. PRE-ARREST: Use entire range of life support measures to stabilize the patient. Care Teams Environmental Air Specialist Relationship Specialty Start Date End Date Cara Sneed APRN, GROUND SERVICE EQUIPMENT MECHANIC [address] [facility] [address] [place] [address] PCP - General Advanced Practice Nurse 11/09/24
[2025-01-11] MEDS: KETOROLAC 30 MG/ML VIAL (*BKC) IM (14:43)
[2025-01-11] MEDS: LIDOCAINE 5% PATCH 1 PATCH TRANSDERM (14:43)
--- NOTE | 2025-01-11 14:46 | ED.BACK ---
HPI - Back Pain/Injury General Chief Complaint: Back Pain/Injury Stated Complaint: back pain, down left leg Time Seen by Provider: 01/11/25 14:03 History of Present Illness HPI Narrative: This is a 29-year-old male with history of asthma, chronic low back pain status post diskectomy 2 years ago who presents to the ED for back pain. Patient states that he has been having worsening right low back pain for the past week or so. He was evaluated by surgeon and subsequently referred back to his PCP who is arranging for an MRI. He states that he was given new prescriptions for gabapentin, Flexeril, and naproxen. He forgot his medications this morning and his pain has been worse. He states the pain is worse when he is sitting at work it is better when standing or lying down. Has had some intermittent tingling to his left foot. Denies saddle anesthesia, bowel/bladder continence. Related Data Home Medications ?Medication ?Instructions ?Recorded ?Confirmed ?Last Taken ?Type albuterol sulfate 90 mcg/actuation inhalation 07/14/24 12/29/24 Unknown History aerosol inhaler bupropion HCl 150 mg 24 hr tablet, 150 mg PO DAILY 11/11/24 12/29/24 Unknown History extended release clonazepam 0.5 mg tablet 0.5 mg PO DAILY 11/11/24 12/29/24 Unknown History venlafaxine 37.5 mg mg PO 11/11/24 12/29/24 Unknown History capsule,extended release 24 hr venlafaxine 75 mg tablet,extended 75 mg PO DAILY 11/11/24 12/29/24 Unknown History release 24 hr lithium carbonate 450 mg 900 mg PO DAILY 12/29/24 12/29/24 Unknown History tablet,extended release Allergies Allergy/AdvReac Type Severity Reaction Status Date / Time Iodinated Contrast Media Allergy Hives Verified 01/11/25 12:54 Contrast Media Allergy Intermediate Hives / Uncoded 01/11/25 12:54 Red Face Review of Systems Review of Systems: Gen.: Denies fevers or chills Eyes: Denies eye pain or visual change ENT: Denies congestion Respiratory: Denies shortness of breath or cough CV: Denies chest pain or palpitations GI: Denies abdominal pain nausea, emesis or diarrhea denies burning, urgency, frequency or hematuria Musculoskeletal: As per HPI Neuro: As per HPI Skin: Denies rash Except as documented, all other systems reviewed and negative [facility] Past Medical History Medical History Anxiety and depression GERD (gastroesophageal reflux disease) Obesity Lumbar disc herniation with radiculopathy Lumbosacral radiculopathy Spinal stenosis of lumbar region at multiple levels Depression Anxiety IBS (irritable bowel syndrome) Fatty liver Benign essential tremor syndrome Surgical History Surgical History Previous back surgery History of placement of ear tubes History of adenoidectomy History of tonsillectomy History of shoulder surgery History of ear surgery Family History Family History Father Ulcerative colitis Heart disease Mother Leukemia Sibling Leukemia Other Hypertension Social History Social History Social History: Kelsey is somewhat confident filling out medical forms. In the last 12 months he has not received assistance from an organization or program. caffeine occasional Smoking status: Never smoker Alcohol intake: current Substance use: never Substance use type: does not use Do You Feel Safe in your Home?: Yes Lack of Transportation: No Lack of Food: Never True Current Housing: I Have Housing Concerned About Future Housing: No Difficulty Paying Gas/Electric Bills: No Difficulty Paying for Meds: No Currently Unemployed: No Education: High School Diploma/GED Difficulty w/ Childcare or Family Care: No Living arrangements: alone Spiritual care concerns: No Exam Narrative: APPEARANCE: No acute distress, nontoxic, resting in bed EYES: EOMI HEENT: Normocephalic, atraumatic, OMM RESPIRATORY: No respiratory distress Clear to auscultation bilaterally with no rhonchi wheezing or rales. CARDIOVASCULAR: Regular rate and rhythm without murmurs rubs or gallops. ABDOMINAL: Soft, nontender, nondistended, no rebound or guarding MUSCULOSKELETAl: Moves all extremities. Tenderness to palpation to the left lower paraspinal lumbar musculature. No midline tenderness, step-offs no deformities. NEURO: Awake and alert. Following commands, speech normal, no focal deficits SKIN:: Warm, dry. No rashes lesions or abrasions PSYCHIATRIC: Normal affect/mood, Course Vital Signs Vital signs: Vital Signs Temperature 97.2 F L 01/11/25 12:58 Pulse Rate 100 01/11/25 12:58 Respiratory Rate 16 01/11/25 12:58 Blood Pressure 162/101 H 01/11/25 12:58 Pulse Oximetry 98 01/11/25 12:58 Temperature 97.2 F L 01/11/25 12:58 Pulse Rate 100 01/11/25 12:58 Respiratory Rate 16 01/11/25 12:58 Blood Pressure 162/101 H 01/11/25 12:58 Pulse Oximetry 98 01/11/25 12:58 MDM - Back Pain/Injury MDM Narrative Medical decision making narrative: 29-year-old male that presents to the ED for left lower back pain. He had no red flag signs for cauda equina or epidural abscess. Given his surgical history, x-ray lumbar spine was obtained and showed no acute process. Patient was given Toradol and Lidoderm with near resolution of his pain. Suspect that he did have a muscle spasm causing his pain. He was given a prescription for Lidoderm patches. He was advised to continue follow-up with his PCP and his spinal surgeon as scheduled. Patient was agreeable to this plan. Given strict return precautions. Differential Diagnosis Differential diagnosis: Likely lumbar radiculopathy and strain of lumbar region Medical Records Attestation: I reviewed the patient's medical records. Imaging Data Radiologist's impression: Impressions Lumbar Spine X-Ray 01/11/25 15:06 Impression: No acute abnormality. Discharge Plan Discharge Clinical Impression: Lumbar back pain Patient Disposition: Home Condition: Stable Instructions: Antibiotic Form, Acute Low Back Pain (ED) Additional Instructions: Continue to follow-up with your surgeon and PCP as previously scheduled. Continue to take your medications as prescribed. You are also a prescription for Lidoderm, take this as prescribed. Return to ED for any new or worsening symptoms. Patient Language: Danish Prescriptions: New lidocaine [Lidocan III] 5 % adhesive patch,medicated 1 patch topical DAILY Qty: 15 0RF Rx Instructions: leave on most painful area for up to 12 hrs No Action clonazepam 0.5 mg tablet 0.5 mg PO DAILY venlafaxine 37.5 mg capsule,extended release 24hr PO venlafaxine 75 mg tablet extended release 24hr 75 mg PO DAILY bupropion HCl 150 mg tablet extended release 24 hr 150 mg PO DAILY albuterol sulfate 90 mcg/actuation HFA aerosol inhaler inhalation cholecalciferol (vitamin D3) 1,250 mcg (50,000 unit) capsule 1,250 mcg PO WEEKLY Qty: 8 0RF lithium carbonate 450 mg tablet extended release 900 mg PO DAILY methylprednisolone [Medrol (Lonnie)] 4 mg tablets,dose pack See Rx Instructions PO PER PKG DIR Qty: 21 0RF Rx Instructions: PO PER PKG DIR cyclobenzaprine 10 mg tablet 10 mg PO BID PRN (Reason: muscle spasm) Qty: 30 0RF alprazolam 0.5 mg tablet 0.5 mg PO ONCE Qty: 1 0RF Rx Instructions: To be taken 30-60 minutes prior to MRI. Do NOT take with Clonazepam. naproxen 500 mg tablet 500 mg PO BID PRN (Reason: pain) Qty: 20 0RF gabapentin 100 mg capsule 100 mg PO BID 30 Days Qty: 60 0RF Follow-up/Referrals: Cara Sneed, BOARD LAYER [Primary Care Provider, Internal Medicine]
== END 2025-01-11 15:40 | disposition home or self-care (01) ==
PROVIDERS: Emergency Provider Student in an Organized Health Care Education/Training Program; PCP Nurse Practitioner
DX: M54.50 Low back pain, unspecified (principal); K58.9 Irritable bowel syndrome, unspecified; G25.0 Essential tremor; F41.9 Anxiety disorder, unspecified; F32.A Depression, unspecified; Z79.899 Other long term (current) drug therapy
CPT/HCPCS: 72100; 96372; 99283; A9270; J1885

== ENCOUNTER 2025-01-25 15:42 | Outpatient (CLI) | payer BC, SELFPAY ==
--- NOTE | ~2025-01-25 | MR_ITS ---
EXAMINATION: MR lumbar spine wo [facility], 01/25/2025 15:45 CDT HISTORY: Radiculopathy, lumbosacral region COMPARISON: None TECHNIQUE: Multi-planar multi-sequence images were obtained of the lumbar spine without contrast per protocol. FINDINGS: Moderate loss of vertebral height throughout. No fracture or subluxation. Marrow signal appropriate. Posterior alignment intact. No abnormal signal within the posterior elements Conus terminates at T12-L1. No abnormal signal within the cord Moderate loss of disc height at L4-5 and L5-S1 with moderate disc desiccation and endplate degenerative changes The soft tissues are unremarkable L5-S1: Circumferential bulging of the disc with a broad-based disc protrusion to the left of midline with disc extrusion with ligamentum flavum and facet hypertrophy producing severe left foramina and lateral recess stenosis with moderate to severe canal stenosis. L4-5: Circumferential bulging of the disc with ligamentum flavum and facet hypertrophy. Mild to moderate bilateral foramina, lateral recess or canal stenosis. L3-4: No canal or foraminal stenosis L2-L3: No canal or foraminal stenosis L1-L2: No canal or foraminal stenosis IMPRESSION: Degenerative changes at L5-S1 detailed above. Reviewed, dictated and finalized at location A.
== END 2025-01-25 15:43 | disposition home or self-care (01) ==
LOC: GOSHIMG 15:42
PROVIDERS: PCP Neurological Surgery; Visit Provider Nurse Practitioner
DX: M54.17 Radiculopathy, lumbosacral region (principal); M48.061 Spinal stenosis, lumbar region without neurogenic claudication; M51.379 Other intervertebral disc degeneration, lumbosacral region without mention of lumbar back pain or lower extremity pain
CPT/HCPCS: 72148

== ENCOUNTER 2025-02-06 02:02 | Day surgery (SDC) | payer BC, SELFPAY ==
[2025-02-02 15:27] VITALS: BMI 34.2
--- NOTE | 2025-02-02 15:28 | PC.NURSE ---
[facility] has started construction of its new state of the art ER which will open Spring 2026. With this, we anticipate parking may be a challenge for some our surgical patients and families. Parking spaces are limited but are available for all Surgical, obstetrics, and ER patients sharing this lot. If you arrive and find you are having a hard time finding a parking space, please note that we understand the challenges, please drive around the hospital and park near Hospital Entrance 1. When you enter this entrance, you can ask a volunteer to direct or take you back to the surgical waiting area to check in. We appreciate everyone?s understanding of these expected challenges while we build for your future. Report to the Outpatient Waiting Room, entrance under the green pavilion located off [address], at time _1100_ on date _[id number]_. Planned Procedure Time: _1200_.? Time changes happen often and if your time is changed the preop area will call you the afternoon before. - You and your visitor will be asked to self-screen and do not enter if you have any COVID symptoms. Please call surgeon if you need to reschedule. - A mask is optional within the hospital at this time. Light breakfast. Nothing to eat or drink after 10am.(2 hours before proceedure). No smoking, or chewing tobacco (or any form of nicotine). No chewing gum, candy or mints. Take only the following medications with a SIP of water on the morning of surgery: ____Take medications.____ DO NOT STOP ANY OF YOUR OTHER PRESCRIPTION MEDICATIONS PRIOR TO SURGERY EXCEPT THE FOLLOWING Hold all vitamins and supplements for 3 days per anesthesiologist. Medications to discontinue per physician Date to take last dose____ Please no make-up, nail greek, hairspray, perfume, deodorant, or body powder the day of surgery.? No jewelry (including any body piercings) or valuables the day of surgery, leave them at home.? Please take a shower or bath the night before, or the morning of, surgery with an antibacterial soap.? Wear comfortable, loose fitting clothing.? - Jewelry must be removed prior to entering the operating room.? Rings and piercings that are not removed may be cut off. - The hospital will not accept responsibility for valuables.? - Please leave all valuables, including medications, at home the day of surgery. If you are going home after surgery, a licensed escort car driver must drive you home.? - NO public transportation without another adult if you receive anesthesia. - We recommend that an adult stay with you for 24 hours following discharge. - We also recommend that you do not drive, make important decision, drink alcoholic beverages, or take any drugs that were not prescribed by your health care provider for at least 24 hours after your discharge time. Follow any additional instructions given to you from your surgeon. Telephone instructions given to __Kelsey__and asked if any additional questions and then verbalized understanding. Patient advised to call surgeon office or pre surgery nurse liaison [phone] if any additional questions.
--- NOTE | ~2025-02-06 | XR_ITS ---
EXAMINATION: XR fluoroscopy no charge DATE: 02/06/2025 12:25 INDICATION: Epidural steroid injection TECHNIQUE: 34 fluoroscopic images of the lower lumbar spine were obtained during procedure performed by Dr. Bains. Radiologist was not present for the imaging or procedure. The amount of fluoroscopy time used during this procedure was 0.8 minutes. Total DAP was 2.97 Gycm^2. COMPARISON: None. FINDINGS: Images demonstrate a thin spinal needle advanced with distal tip positioned at the anteromedial inferolateral aspect of an L5-S1 transverse foramen, likely left-sided presuming patient is in the prone position. Subsequent images demonstrate contrast injection extending with needle tip along the exiting nerve root without evident intravascular contrast enhancement. IMPRESSION: 1. Fluoroscopy utilized during a likely L5-S1 neural foraminal epidural steroid injection. See procedure note for further detail Reviewed, dictated and finalized at location A.
--- OUTSIDE RECORDS SUMMARY | 2025-02-06 02:04 | XMS_ITS | Clinical Summary ---
Author Organization [facility] Healthcare Address [address] [place] [address] Care Team Providers Care Analyst Programmer Name Role Phone Edwin Melgoza LAMINATING MACHINE FEEDER Unavailable [phone] Carlos Becerra LAMINATING MACHINE FEEDER Unavailable [phone] Koko Daugherty DO Primary Care Provider [phone] Allergies Active Allergy Reactions Criticality Noted Date Comments Ioxaglate Sodium Rash Medium 05/11/2016 Iodinated Contrast Media Hives Medium 04/24/2017 Medications albuterol HFA (PROVENTIL HFA,VENTOLIN HFA,PROAIR HFA) 90 mcg/actuation inhaler 3 Active albuterol HFA (PROVENTIL HFA,VENTOLIN HFA,PROAIR HFA) 90 mcg/actuation inhaler Inhale 1-2 puffs every 6 (six) hours as needed for wheezing or shortness of breath 1 each 4 02/26/20 25 Active acetaminophen (TYLENOL) 500 mg tablet Take 1-2 tablets (500-1,000 mg total) by mouth every 6 (six) hours as needed for pain (1 tablet for mild to moderate pain. 2 tablets for severe pain) 30 tablet 5 Active ibuprofen (ADVIL,MOTRIN) 600 mg tablet Take 1 tablet (600 mg total) by mouth every 6 (six) hours as needed for pain 30 tablet 5 Active lidocaine (LIDODERM) 5 % Apply 1 patch topically daily for 12 hours Remove after 12 hours (need 12 hour patch free period). 15 patch 5 02/26/20 25 Active predniSONE (DELTASONE) 20 mg tablet Take 2 tablets (40 mg) by mouth daily for 5 days 10 tablet 5 02/01/20 25 Active Problems Problem Noted Date Diagnosed Date [...] diarrhea Assessment & Plan (06/05/2022 4:30 PM GRAPE CRUSHER): - chronic, stable - uses Anusol for [...] about a week with normal findings Dr. Karadaghy - he had similar symptoms of blood [...] medications. Assessment & Plan (07/07/2021 7:57 PM GRAPE CRUSHER): - chronic, recurrent condition - abdominal pain, intermittent for over a year, more recently started having blood with bowel movement - no significant rectal pain or constipation with this - father with UC, diagnosed in 20s - mother being evaluated for possible crohn's - patient has had a colonoscopy back in 2016 after hospitalization for about a week with [...] 07/01/2021 Assessment & Plan (07/07/2021 7:56 PM GRAPE CRUSHER): - chronic, recurrent condition - abdominal pain, [...] psychiatry Assessment & Plan (07/23/2022 2:39 PM GRAPE CRUSHER): - chronic, controlled, at goal - diagnosed [...] medications Assessment & Plan (06/05/2022 4:29 PM GRAPE CRUSHER): - chronic, controlled, at goal - diagnosed [...] medications Assessment & Plan (07/07/2021 7:55 PM GRAPE CRUSHER): - chronic, controlled, at goal - diagnosed [...] medications Assessment & Plan (04/01/2021 3:05 PM GRAPE CRUSHER): - controlled, atgoal - diagnosed with depression 07/2020 - depression - chronic, stable, at goal - anxiety - chronic, stable, not at goal - hx of anxiety diagnosis for several years, even since childhood - has not been following his psychiatrist at [facility] specialist in [place] - In the past has tried Citalopram [...] childhood - he follows with psychiatrist with [facility] specialist in [place] - In the past has tried Citalopram [...] remember - he follows with psychiatrist with [facility] specialist in [place] - recently started on Sertraline 25, 50, [...] 08/31/2020 Assessment & Plan (04/01/2021 3:07 PM GRAPE CRUSHER): - chronic, improved, at goal - worse [...] education Assessment & Plan (07/23/2022 2:31 PM GRAPE CRUSHER): Wt Readings from Last 3 Encounters: 07/23/22 [...] provided Assessment & Plan (04/01/2021 3:06 PM GRAPE CRUSHER): Wt Readings from Last 3 Encounters: 03/22/21 [...] psychiatry Assessment & Plan (06/11/2022 5:17 PM GRAPE CRUSHER): - chronic, controlled, not at goal - [...] medications Assessment & Plan (07/07/2021 7:54 PM GRAPE CRUSHER): - chronic, controlled, at goal - diagnosed [...] medications Assessment & Plan (04/01/2021 3:05 PM GRAPE CRUSHER): - controlled, atgoal - diagnosed with depression 07/2020 - depression - chronic, stable, at goal - anxiety - chronic, stable, not at goal - hx of anxiety diagnosis for several years, even since childhood - has not been following his psychiatrist at [facility] specialist in [place] - In the past has tried Citalopram [...] childhood - he follows with psychiatrist with [facility] specialist in [place] - In the past has tried Citalopram [...] remember - he follows with psychiatrist with [facility] specialist in [place] - In the past has tried Citalopram [...] (03/15/2020): Added automatically from request for surgery [id number] Arthritis of left shoulder region 03/15/2020 12/21/2020 Overview (03/15/2020): Added automatically from request for surgery [id number] Chronic left shoulder pain 09/08/2019 0 09/09/2019 [...] Asthma Pericarditis 02/07/2014 12/21/2020 Overview (08/21/2016): Pericarditis Encounters Date Type Department Care Team Description 01/26/2025 12:37 PM CDT - 01/26/2025 3:59 PM CDT Emergency [facility] Emergency Department [address] [place] [address] Gerard Granados MD Urinary incontinence, post-void dribbling (Primary Dx); Acute left lumbar radiculopathy; Obesity (BMI 30.0-34.9); 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 Discharge Disposition: Discharge to home or self care from Last 3 Months Immunizations Immunization Administration Dates Next Due DTaP [...] Hx Other Medical hearing difficu lties; Comments: [facility] 02/07/2014 - Hx Other Medical heart issues; C omments: [facility] 02/07/2014 - Hx Other Medical Tonsillectomy; Comments: [facility] 03/27/2014 - Hx Other Medical Adenoidectomy; Comments: [facility] 03/27/2014 - Asthma Asthma; Comments : [facility] 04/20/2014 - Hx Other Medical abnl heartbeat; Comments: [facility] 04/20/2014 - Hx Other Medical reconstruction right ear drum; Comments: [facility] 04/20/2014 - Irritable bowel syndrome Kidney stone [...] making you feel afraid or unsafe? Denies 01/26/2025 Sex and Gender Information Value Date Recorded Sex Assigned at Not on file Legal Sex Male 11:16 PM GRAPE CRUSHER Gender Identity Not on file Sexual Orientation Not on file Obstetrics History Last Filed Vital Signs Vital Sign Reading Time Taken Comments Blood Pressure 149/85 01/26/2025 12:23 PM CDT Pulse 112 01/26/2025 12:23 PM CDT Temperature 36.8 C (98.2 F) 01/26/2025 12:23 PM CDT Respiratory Rate 18 01/26/2025 12:23 PM CDT Oxygen Saturation 94% 01/26/2025 12:23 PM CDT Inhaled Oxygen Concentration - - Weight 110.7 kg (244 lb) 01/26/2025 12:23 PM CDT Height 180.3 cm (5' 11) 01/26/2025 12:23 PM CDT Body Mass Index 34.03 01/26/2025 12:23 PM CDT Plan of Treatment Health Maintenance Due Date Last Done Comments Varicella Vaccines (2 of 2 - 2-dose childhood series) 03/15/2013 02/01/1997 Regular Well Visit/Exam 18-64 01/27/2014 Pneumococcal vaccine <65 (1 of 2 - PCV) 01/27/2015 HPV Vaccines (1 - 3-dose SCD M series) 01/27/2023 Influenza Vaccine (#1) 2025 3, 03/22/2021, 03/19/2021, Additional history exists Depression Screening 03/17/2025 03/17/2024, 03/17/2024, 08/26/2022, Additional history exists DTaP/Tdap/Td Vaccine (9 - Td or Tdap) 06/17/2033 06/17/2023, 03/08/2023, 06/14/2012, Additional history exists Hepatitis C Screening Completed 08/31/2020 Procedures Procedure Name Priority Date/Time Associated Diagnosis Comments URINALYSIS AND REFLEX TO MICROSCOPIC AND CULTURE STAT 01/26/2025 3:22 PM CDT B CHECK SAMPLE STAT 01/26/2025 1:38 PM CDT EGFR STAT 01/26/2025 1:16 PM CDT DIFFERENTIAL AUTO STAT 01/26/2025 1:1 6 PM CDT PROTIME-INR STAT 01/26/2025 1:16 PM CDT APTT STAT 01/26/2025 1:16 PM CDT TYPE AND SCREEN STAT 01/26/2025 1:16 PM CDT COMPREHENSIVE METABOLIC PANEL STAT 01/26/2025 1:16 PM CDT CBC WITH AUTO DIFFERENTIAL STAT 01/26/2025 1:16 PM CDT HEPATITIS C ANTIBODY Routine 08/31/2020 10:02 AM CDT Need for hepatitis C screening test from Last 3 Months or Most Recently Relevant to Health Maintenance Results * Urinalysis reflex to microscopic and culture Urine Kidney, left (01/26/2025 3:22 PM CDT) Color, ur Straw Yellow Clarity, ur Clear Clear [facility] Specific gravity, ur 1.012 1.003 - 1.030 [facility] pH, urine 7.0 [facility] Comment: Interpretive Data U rine pH is affected by diet, medications, systemic acid-base disturbances, and renal tubular function. pH may affect urinary stone formation. For example, urine pH below 6.0 may help reduce the tendency for calcium phosphate stones and pH greater than 6.0 may reduce the tendency for uric acid stone formation. Source: [facility] Current Interpretive Data was last revised on 2017 Protein, ur ql Negative Negative [facility] Glucose, ur ql Negative Negative [facility] Ketones, ur Negative Negative [facility] Bilirubin, ur Negative Negative [facility] Blood, ur Negative Negative [facility] Urobilinogen, ur <2.0 <2.0 mg/dL [facility] Nitrite, ur Negative Negative [facility] Leukocyte esterase, ur Negative Negative [facility] UA reflex comment Reflex conditions for microscopic UA and culture not met. [facility] Urine (Kidney, left) 01/26/2025 3:22 PM CDT 01/26/2025 3:27 PM CDT Gerard Granados MD LAB MICROBIOLOGY - GENER AL ORDERABLES Final Result Performing Organization Address City/[facility] Co de Phone Number [facility] Department [place] [address] * Check Sample (01/26/2025 1:38 PM CDT) ABO Rh O Positive [facility] HCLL OTHER 01/26/2025 1:38 PM CDT 01/26/2025 1:54 PM CDT [facility] LAB BLOOD ORDERABLES Final Resul t Performing Organization Address [facility] Co de Phone Number [facility] Department [place] [address] [facility] * eGFR (01/26/2025 1:16 PM CDT) eGFR 74 >=60 mL/min/1. 73 m2 Comment: Interpretive Data Reference Interval Normal >/= 90 mL/min/1.73m2 Mildly decreased* 60 - 89 mL/min/1.73m2 Mildly to moderately decreased 45 - 59 mL/min/1.73m2 Moderately to severely decreased 30 - 44 mL/min/1.73m2 Severely decreased 15 - 29 mL/min/1.73m2 Kidney Failure < 15 mL/min/1.73m2 *Relative to young adult level Estimated glomerular filtration rate is determined by the 2020 CKD-EPI equation recommended by the National Kidney Foundation (A Unifying Approach to GFR Estimation: Recommendations of the NKF-ASK Task Force on Reassessing the Inclusion of Race in Diagnosing Kidney Disease, JASN 202). The CKD-EPI equation should not be used for patients with unstable renal function and has not been validated in children and those over 70. Current interpretive data was last reviewed 2021. Blood 01/26/2025 1:16 PM CDT 01/26/2025 1:25 PM CDT us Shon Medrano MD LAB BLOOD ORDERABLES F inal Result [facility] Department [place] [address] * (ABNORMAL) Differential, auto (01/26/2025 1:16 PM CDT) Pathologist [facility] Neutrophil abs 4.28 1.50 - 6.50 K/cumm Imm gran abs 0.05 0.00 - 0.10 K/cumm [facility] Lymphocyte abs 2.37 0.80 - 3.30 K/cumm [facility] Monocyte abs 0.55 0.20 - 0.80 K/cumm [facility] Eosinophil abs 0.20 0.00 - 0.50 K/cumm [facility] Basophil abs 0.11(H) 0.00 - 0.10 K/cumm [facility] Neutrophil pct 56.6 % [facility] Comment: Interpretive Data Percent cell count reference ranges are not reported, since discordance with absolute values may lead to misinterpretation of CBC data. Current Interpretive Data was last revised on 2017. Imm gran pct 0.7 % [facility] Comment: Interpretive Data Percent cell count reference ranges are not reported, since discordance with absolute values may lead to misinterpretation of CBC data. Current Interpretive Data was last revised on 2017. Lymphocyte pct 31.3 % [facility] Comment: Interpretive Data Percent cell count reference ranges are not reported, since discordance with absolute values may lead to misinterpretation of CBC data. Current Interpretive Data was last revised on 2017. Monocyte pct 7.3 % [facility] Comment: Interpretive Data Percent cell count reference ranges are not reported, since discordance with absolute values may lead to misinterpretation of CBC data. Current Interpretive Data was last revised on 2017. Eosinophil pct 2.6 % [facility] Comment: Interpretive Data Percent cell count reference ranges are not reported, since discordance with absolute values may lead to misinterpretation of CBC data. Current Interpretive Data was last revised on 2017. Basophil pct 1.5 % [facility] Comment: Interpretive Data Percent cell count reference ranges are not reported, since discordance with absolute values may lead to misinterpretation of CBC data. Current Interpretive Data was last revised on 2017. Blood 01/26/2025 1:16 PM CDT 01/26/2025 1:25 PM CDT us Shon Medrano MD LAB BLOOD ORDERABLES F inal Result [facility] Department [place] [address] * CBC with auto differential (01/26/2025 1:16 PM CDT) WBC 7.56 3.80 - 9.90 K/cumm Hgb 16.1 13.0 - 17.5 g/dL [facility] Hct 46.7 38.9 - 50.3 % [facility] Plt 228 150 - 400 K/cumm [facility] MPV 9.2 9.1 - 12.3 fL [facility] RBC 5.51 4.30 - 5.80 M/cumm [facility] MCV 84.8 81.3 - 96.4 fL [facility] MCH 29.2 27.1 - 33.3 pg [facility] MCHC 34.5 32.3 - 35.7 g/dL [facility] RDW CV 12.2 11.1 - 14.9 % [facility] RDW SD 37.2 35.7 - 48.1 fL [facility] NRBC abs 0.00 0.00 - 0.01 K/cumm [facility] Blood 01/26/2025 1:16 PM CDT 01/26/2025 1:25 PM CDT Shon Medrano MD LAB BLOOD ORDERABLES F inal Result Performing Organization Address [facility] de Phone Number [facility] [address] [place] [address] * aPTT (01/26/2025 1:16 PM CDT) aPTT 28 26 - 38 sec Comment: Interpretive Data Heparin therapeutic range: 66.0 - 100.0 seconds. Range based on correlation with therapeutic heparin activity range of 0.3 - 0.7 Units/mL. Current interpretive data was last revised on 2023. Blood 01/26/2025 1:16 PM CDT 01/26/2025 1:27 PM CDT Shon Medrano MD LAB BLOOD ORDERABLES F inal Result Performing Organization Address [facility] de Phone Number [facility] [address] [place] [address] * Protime-INR (01/26/2025 1:16 PM CDT) PT 11.2 10.2 - 13.5 sec INR 0.99 0.90 - 1.20 [facility] Comment: Interpretive data Oral anticoagulant therapeutic ranges: Venous thromboembolism prophylaxis or treatment: 2.0-3.0 CARDIOLOGY Standard range: 2.0-3.0 High-intensity range: 2.5-3.5 Refer to indication-specific guidelines for appropriate target ranges for prosthetic heart valve replacement. Current interpretive data was last revised on 2019. Blood 01/26/2025 1:16 PM CDT 01/26/2025 1:27 PM CDT Shon Medrano MD LAB BLOOD ORDERABLES F inal Result Performing Organization Address [facility] Co de Phone Number [facility] [place] [address] * Type and screen (01/26/2025 1:16 PM CDT) Pathologist [facility] [place], indirect Negative ABO Rh O Positive [facility] Blood 01/26/2025 1:16 PM CDT 01/26/2025 1:25 PM CDT Narrative [facility] - 01/26/2025 2:20 PM CDT Has the patient had Daratumumab or Isatuximab in the past 6 months?->Unknown Shon Medrano MD LAB BLOOD BANK TEST OR DERABLES Final Result Performing Organization Address [facility] de Phone Number [facility] [place] [address] * (ABNORMAL) Comprehensive metabolic panel (01/26/2025 1:16 PM CDT) [facility] Sodium 139 135 - 145 mmol/L Potassium, pl 3.7 3.3 - 4.9 mmol/L [facility] Chloride 102 97 - 110 mmol/L [facility] CO2 25 22 - 32 mmol/L [facility] Anion gap 12 2 - 15 mmol/L [facility] BUN 13 6 - 25 mg/dL [facility] Creatinine 1.34(H) 0.80 - 1.30 mg/dL [facility] Glucose 105 70 - 199 mg/dL [facility] Comment: Interpretive Data Fasting glucose >/= 126 mg/dl is diagnostic for diabetes. Fasting is defined as no caloric intake for at least 8 hours. Fasting glucose between 100 mg/dl to 125 mg/dl is diagnostic of prediabetes. In a patient with classic symptoms of hyperglycemia or hyperglycemic crisis, a random glucose >/= 200 mg/dl is diagnostic for diabetes. In the absence of unequivocal hyperglycemia, results should be confirmed by repeat testing. The classification and Diagnosis of Diabetes Diabetes Care 202; 46: S19-S40. Current interpretive data was last revised 2022. Calcium 9.3 8.5 - 10.3 mg/dL [facility] Bilirubin, total 0.5 0.1 - 1.2 mg/dL [facility] Protein, pl 7.4 6.5 - 8.5 g/dL [facility] Albumin 4.5 3.5 - 5.0 g/dL [facility] Alk phos 78 40 - 130 Units/L [facility] ALT 55 7 - 55 Units/L [facility] AST 31 10 - 50 Units/L [facility] Blood 01/26/2025 1:16 PM CDT 01/26/2025 1:25 PM CDT us Shon Medrano MD LAB BLOOD ORDERABLES F inal Result [facility] [place] [address] * Hepatitis C antibody (08/31/2020 10:02 AM CDT) Hep C Ab Nonreactive Nonreactive [facility] Comment: Interpretive Data Nonreactive: Antibodies to [...] last revised on 2019. Testing performed by: [facility], [address] [place] [address], [place] [address] Blood specimen (specimen) 08/31/2020 10:02 AM CDT 08/31/2020 4:02 PM CDT us Marquis Holcomb MD LAB MICROBIOLOGY - GENE RAL ORDERABLES Final Result [facility] [address] [place] [address] from Last 3 Months or Most Recently Relevant to Health Maintenance Insurance [employer] ACCESS CHOICE [employer] ACCESS CHO[employer] Member Subscriber Plan / Payer (Ef fective 2019-Present) Name:Kelsey Zafar Relation to Subscriber:Self Name:Kelsey Zafar Payer ID:[id number] (NAIC) Type:[employer] Address: [address] [employer] ACCESS CHOICE Advance Directives For more information, please contact: [phone] * Full Code (Latest Code Status on File) Date Activated Date Inactivated Comments 10/21/2021 10:39 AM 10/21/2021 5:20 PM * Full Code Date Activated Date Inactivated Comments 10/21/2021 10:38 AM 10/21/2021 10:39 AM Care Teams Analyst Programmer Relationship Specialty Start Date End Date Koko Daugherty DO [address] [place] [address] PCP - General Internal Medicine 03/08/23 Edwin Melgoza NP Nurse Practitioner Family Practice 05/26/22 Carlos Becerra NP [address] [place] [address] Nurse Practitioner Psychiatry 08/26/22
--- OUTSIDE RECORDS SUMMARY | 2025-02-06 02:04 | XMS_ITS | Clinical Summary ---
Author Organization [facility] Address [address] [place] [address] Phone Care Team Providers Care Corporate Sales Manager Name Role Phone Cara Sneed APRN, ART PSYCHOTHERAPIST Primary Care Provider + Allergies Active Allergy [...] Encounters Date Type Department Care Team Description 01/30/2025 8:00 AM CDT [facility] [address] [place] [address] Tono Garay PSYD Unspecified neurodevelopmental disorder (Primary Dx); JOSE LUIS (generalized anxiety disorder); Major depressive disorder, recurrent episode, moderate (HCC) Discharge Disposition: Discharged to home or Selfcare 01/30/2025 Travel 11/09/2024 8:00 AM CDT [facility] [address] [facility] [place] [address] Tono Garay PSYD Unspecified neurodevelopmental disorder (Primary [...] 177.8 cm (5' 10) 05/11/2016 5:38 PM METAL BASE BLOCKER Body Mass Index 24.39 05/11/2016 5:38 PM METAL BASE BLOCKER Plan of Treatment Upcoming Encounters Date Type Department Care Team (Latest Contact Info) Description 03/02/2025 8:00 AM CDT [facility] [address] [place] [phone] Tono Garay PSYD [place] Discharge Disposition: Discharged to home or Selfcare Health Maintenance Due Date Last Done Comments Hepatitis C Virus (HCV) Screening 1996 Human Papillomavirus (HPV) Immunization (1 - 3-dose SCDM series) 01/27/2023 Influenza Immunization (#1) 01/16/202505/18, 03/22/2021, 03/19/2021, Additional history exists SARS-COV-2 Immunization () 01/16/2025 Respiratory Syncytial Virus (RSV) Immunization (Adult) (1 [...] Progress Patient-Stated? Author Psychological assessment Behavioral Health On track(2024 4:06 PM CDT) No Tono Garay PSYD Note: Patient will participate fully in a psychological assessment within the next 60 days to determine the presence of a psychological condition such as ADHD. Insurance [facility] Advance Directives * Full Code (Latest Code Status on File) Date Activated Date Inactivated Comments 05/13/2016 2:23 PM 05/13/2016 9:29 PM CPR-Full Treatment: FULL ARREST: Attempt Resuscitation/CPR wit intubation and mechanical ventilation. PRE-ARREST: Use entire range of life support measures to stabilize the patient. Care Teams Corporate Sales Manager Relationship Specialty Start Date End Date Cara Sneed APRN, ART PSYCHOTHERAPIST [address] [facility] [address] [place] [address] PCP - General Advanced Practice Nurse 11/09/24
--- NOTE | 2025-02-06 10:58 | WPDHPUPDATE1 ---
History and Physical Update Update Date/Time: 02/06/25 10:58 History and Physical has been reviewed, including an updated exam of the patient. There are NO changes in the patient's condition. Risks, benefits, and alternatives have been discussed and questions answered. Patient agrees to proceed with procedure.
--- NOTE | 2025-02-06 10:58 | W.PM.PROC2 ---
Procedure Note - Detailed Date of Procedure 02/06/25 Pre-op Diagnosis spondylosis lumbar region Post-op Diagnosis Same Procedure Performed left Lumbar Transforaminal Epidural Steroid Injection under Fluoroscopic Guidance and with Contrast Control at L5-S1. Surgeon Shon Bains MD Anesthesia Local Description of Procedure INFORMED CONSENT: Risks, benefits and alternatives to the procedure were discussed in detail with the patient who expressed explicit understanding and consent to proceed. Patient was informed verbally and in written form regarding the risks associated with the procedure including the low risk of serious infection, bleeding/bruising, allergic reaction, nerve or organ injury, paralysis, procedural site pain or discomfort, worsening pain and/or mobility, failure to treat and/or disfigurement. The patient expressed explicit understanding and consent to proceed. All materials required for the procedure were available prior to procedure start. Site and side was marked prior to procedure and confirmed in the presence of the patient. PROCEDURE IN DETAIL: The patient was brought to the procedural suite and placed in the prone position. Patient was made comfortable with use of pillows under the head/chest, hips and ankles. Skin overlying the injection site was prepared broadly with ChloraPrep applicator and draped in a sterile manner. Aseptic technique was employed throughout. The endplates of the vertebral body at the site of interest were aligned in the AP view. Ipsilateral oblique angulation was utilized to better visualize the neuroforamen of interest. Local anesthesia was established by infiltration with approximately 5 mL of 0.5% PF lidocaine via a 1-1/2 inch 27-gauge needle. A 22-gauge 3.5 inch Wendy (pencil point) spinal needle was advanced until the needle approached the 6 o'clock position on the pedicle just superior to the exiting nerve root. on the left at L5-S1. Lateral view was utilized to confirm appropriate position of the needle tip within the superior and posterior portion of the respective foramen. In an AP view, 1 mL of Omnipaque 300 contrast medium was injected after negative aspiration for CSF, blood or other bodily fluid, showing appropriate neurogram without evidence of intravascular or intrathecal spread of contrast. Digital subtraction imaging was used with an additional 1ml of the same contrast medium to confirm absence of intravascular contrast spread. A 1mL solution containing 10 mg of dexamethasone was injected after negative repeat aspiration. Appropriate spread of the injectate was confirmed with washout of previously injected contrast. No parasthesias were elicited. Needle was removed completely intact without difficulty. Images were saved and documented in the patient chart. Patient's skin was cleaned and sterile bandage applied. The patient tolerated the procedure well. The patient was transported to the recovery area in stable condition where they were observed for an appropriate amount of time prior to discharge, without evidence of complication. The patient was instructed to avoid excessive activity for the next 48 hours, including climbing and frequent use of stairs. Showers only for 48 hours. They were instructed not to drive or operate heavy machinery for 24 hours. They are to monitor for severe headaches, fevers, chills, night sweats, erythema/swelling at the site or any other signs of infection, bleeding/bruising, bowel or bladder changes as well as new pain, weakness or numbness in the upper or lower extremity. Should they notice these changes, they are instructed to call our office immediately or report directly to the nearest Emergency Department if no answer or if after posted office hours. COMPLICATIONS: None COMMENTS: None CONTRAST WASTED: 28 mL Omnipaque 300. Complications No immediate complications Condition Stable Disposition Same day [facility] Billing Surgery - Charge Forward: Surgery Billing
[2025-02-06 11:30] VITALS: BP 134/79; PULSE 66; RESP 14; TEMP 36.5; O2SAT 100
[2025-02-06 12:05] VITALS: BP 157/83; PULSE 99; RESP 16; O2SAT 97
[2025-02-06] MEDS: dexAMETHasone SOD PHOS INJ 10 MG/ML 1 ML VIAL IM (12:09)
[2025-02-06] MEDS: LIDOCAINE 2% PF LOCAL INJ 5 ML VIAL INFILTRATE (12:10)
[2025-02-06 12:18] VITALS: BP 149/81; PULSE 88; RESP 16; O2SAT 95
[2025-02-06 12:21] VITALS: BP 153/97; PULSE 88; RESP 16; O2SAT 98
[2025-02-06 12:35] VITALS: BP 131/91; PULSE 83; RESP 16
== END 2025-02-06 12:40 | disposition home or self-care (01) ==
PROVIDERS: PCP Nurse Practitioner; Visit Provider Anesthesiology Pain Medicine
PROC: (CPT 64483; principal; 2025-02-06 12:00)
DX: M48.061 Spinal stenosis, lumbar region without neurogenic claudication (principal); M47.816 Spondylosis without myelopathy or radiculopathy, lumbar region; M51.16 Intervertebral disc disorders with radiculopathy, lumbar region; F41.8 Other specified anxiety disorders; K21.9 Gastro-esophageal reflux disease without esophagitis; G25.0 Essential tremor; Z79.51 Long term (current) use of inhaled steroids; Z79.891 Long term (current) use of opiate analgesic; Z98.890 Other specified postprocedural states; Z98.1 Arthrodesis status; Z80.6 Family history of leukemia; Z82.49 Family history of ischemic heart disease and other diseases of the circulatory system
CPT/HCPCS: 64483; 99199; J1100; J2003; Q9965

== ENCOUNTER 2025-02-14 07:56 | Outpatient (CLI) | payer BC, SELFPAY ==
--- NOTE | ~2025-02-14 | XR_ITS ---
EXAMINATION: XR chest 2V, 02/14/2025 9:00 CDT HISTORY: PRE OP FOR SPINE SURGERY COMPARISON: No comparisons available. Technique: 2 views obtained. Findings: The lungs are clear, no effusion. No pneumothorax. Heart is normal size. Mediastinal and hilar contours are within normal limits. Bony thorax no acute abnormality. Impression: No acute cardiopulmonary abnormality. Reviewed, dictated and finalized at location P. Impression: No acute cardiopulmonary abnormality.
--- OUTSIDE RECORDS SUMMARY | 2025-02-14 08:08 | XMS_ITS | Clinical Summary ---
Author Organization [facility] Address [address] [place] [address] Phone Care Team Providers Care Coroner Technician Name Role Phone Cara Sneed APRN, DIET ATTENDANT Primary Care Provider + Allergies Active Allergy [...] 01/30/2025 8:00 AM CDT [facility] [address] [place] [address] Tono Garay PSYD Unspecified neurodevelopmental disorder (Primary Dx); JOSE LUIS (generalized anxiety disorder); Major depressive disorder, recurrent episode, moderate (HCC) Discharge Disposition: Discharged to home or Selfcare 01/30/2025 Travel from Last 3 Months Family History [...] 177.8 cm (5' 10) 05/11/2016 5:38 PM DATA COORDINATOR Body Mass Index 24.39 05/11/2016 5:38 PM DATA COORDINATOR Plan of Treatment Upcoming Encounters Date Type Department Care Team (Latest Contact Info) Description 03/02/2025 8:00 AM CDT [facility] [address] [place] [address] Tono Garay PSYD [place] Discharge Disposition: Discharged to home or Selfcare Health Maintenance Due Date Last Done Comments Hepatitis C Virus (HCV) Screening 1996 Human Papillomavirus (HPV) Immunization (1 - 3-dose SCDM series) 01/27/2023 Influenza Immunization (#1) 01/16/202505/18, 03/22/2021, 03/19/2021, Additional history exists SARS-COV-2 Immunization (2023- season) 2025 Respiratory Syncytial Virus (RSV) Immunization (Adult) [...] psychological condition such as ADHD. Insurance [facility] Advance Directives * Full Code (Latest Code Status on File) Date Activated Date Inactivated Comments 05/13/2016 2:23 PM 05/13/2016 9:29 PM CPR-Full T reatment: FULL ARREST: Attempt Resuscitation/CPR wit intubation and mechanical ventilation. PRE-ARREST: Use entire range of life support measures to stabilize the patient. Care Teams Coroner Technician Relationship Specialty Start Date End Date Cara Sneed, BERTHA, DIET ATTENDANT [address] [place] [address] PCP - General Advanced Practice Nurse 11/09/24
--- OUTSIDE RECORDS SUMMARY | 2025-02-14 08:08 | XMS_ITS | Clinical Summary ---
Author Organization [facility] Healthcare Address [address] [place] [address] Care Team Providers Care Career Consultant Name Role Phone Edwin Melgoza CO CHAIRMAN Unavailable [phone] Carlos Becerra CO CHAIRMAN Unavailable [phone] Koko Daugherty DO Primary Care Provider [phone] Allergies Active Allergy Reactions Criticality Noted Date [...] diarrhea Assessment & Plan (06/05/2022 4:30 PM LOAN WORKOUT OFFICER): - chronic, stable - uses Anusol for [...] medications. Assessment & Plan (07/07/2021 7:57 PM LOAN WORKOUT OFFICER): - chronic, recurrent condition - abdominal pain, [...] 07/01/2021 Assessment & Plan (07/07/2021 7:56 PM LOAN WORKOUT OFFICER): - chronic, recurrent condition - abdominal pain, [...] psychiatry Assessment & Plan (07/23/2022 2:39 PM LOAN WORKOUT OFFICER): - chronic, controlled, at goal - diagnosed [...] medications Assessment & Plan (06/05/2022 4:29 PM LOAN WORKOUT OFFICER): - chronic, controlled, at goal - diagnosed [...] medications Assessment & Plan (07/07/2021 7:55 PM LOAN WORKOUT OFFICER): - chronic, controlled, at goal - diagnosed [...] medications Assessment & Plan (04/01/2021 3:05 PM LOAN WORKOUT OFFICER): - controlled, atgoal - diagnosed with depression 07/2020 - depression - chronic, stable, at goal - anxiety - chronic, stable, not at goal - hx of anxiety diagnosis for several years, even since childhood - has not been following his psychiatrist at [facility] specialist in [place] - In the past has tried Citalopram [...] childhood - he follows with psychiatrist with [facility] specialist in [place] - In the past has tried Citalopram [...] remember - he follows with psychiatrist with [facility] specialist in [place] - recently started on Sertraline 25, 50, [...] 08/31/2020 Assessment & Plan (04/01/2021 3:07 PM LOAN WORKOUT OFFICER): - chronic, improved, at goal - worse [...] education Assessment & Plan (07/23/2022 2:31 PM LOAN WORKOUT OFFICER): Wt Readings from Last 3 Encounters: 07/23/22 [...] provided Assessment & Plan (04/01/2021 3:06 PM LOAN WORKOUT OFFICER): Wt Readings from Last 3 Encounters: 03/22/21 [...] psychiatry Assessment & Plan (06/11/2022 5:17 PM LOAN WORKOUT OFFICER): - chronic, controlled, not at goal - [...] medications Assessment & Plan (07/07/2021 7:54 PM LOAN WORKOUT OFFICER): - chronic, controlled, at goal - diagnosed [...] medications Assessment & Plan (04/01/2021 3:05 PM LOAN WORKOUT OFFICER): - controlled, atgoal - diagnosed with depression 07/2020 - depression - chronic, stable, at goal - anxiety - chronic, stable, not at goal - hx of anxiety diagnosis for several years, even since childhood - has not been following his psychiatrist at [facility] specialist in [place] - In the past has tried Citalopram [...] childhood - he follows with psychiatrist with [facility] specialist in [place] - In the past has tried Citalopram [...] remember - he follows with psychiatrist with [facility] specialist in [place] - In the past has tried Citalopram [...] (03/15/2020): Added automatically from request for surgery [id number] Arthritis of left shoulder region 03/15/2020 12/21/2020 Overview (03/15/2020): Added automatically from request for surgery [id number] Chronic left shoulder pain 09/08/2019 0 09/09/2019 [...] Encounters Date Type Department Care Team Description 02/08/2025 6:04 PM CDT - 02/08/2025 8:41 PM CDT Emergency [facility] Emergency Department [address] [place] [address] Discharge Disposition: Left without being seen 01/26/2025 12:37 PM CDT - 01/26/2025 3:59 PM CDT Emergency [facility] Emergency Department [address] [place] [address] Gerard Granados MD Urinary incontinence, post-void dribbling [...] Hx Other Medical hearing difficu lties; Comments: [facility] 02/07/2014 - Hx Other Medical heart issues; C omments: [facility] 02/07/2014 - Hx Other Medical Tonsillectomy; Comments: [facility] 03/27/2014 - Hx Other Medical Adenoidectomy; Comments: [facility] 03/27/2014 - Asthma Asthma; Comments : [facility] 04/20/2014 - Hx Other Medical abnl heartbeat; Comments: [facility] 04/20/2014 - Hx Other Medical reconstruction right ear drum; Comments: [facility] 04/20/2014 - Irritable bowel syndrome Kidney [...] making you feel afraid or unsafe? Denies 02/08/2025 Sex and Gender Information Value Date Recorded Sex Assigned at Not on file Legal Sex Male 11:16 PM LOAN WORKOUT OFFICER Gender Identity Not on file Sexual Orientation Not on file Obstetrics History Last Filed Vital Signs Vital Sign Reading Time Taken Comments Blood Pressure 143/94 02/08/2025 6:12 PM CDT Pulse 84 02/08/2025 6:12 PM CDT Temperature 36.6 C (97.9 F) 02/08/2025 6:12 PM CDT Respiratory Rate 16 02/08/2025 6:12 PM CDT Oxygen Saturation 96% 02/08/2025 6:12 PM CDT Inhaled Oxygen Concentration - - Weight 111.1 kg (245 lb) 02/08/2025 6:12 PM CDT Height 180.3 cm (5' 11) 01/26/2025 12:23 PM CDT Body Mass Index 34.17 01/26/2025 12:23 PM CDT Plan of Treatment [...] ur Straw Yellow Clarity, ur Clear Clear [facility] Specific gravity, ur 1.012 1.003 - 1.030 [facility] pH, urine 7.0 [facility] Comment: Interpretive Data U rine pH is affected by diet, medications, systemic acid-base disturbances, and renal tubular function. pH may affect urinary stone formation. For example, urine pH below 6.0 may help reduce the tendency for calcium phosphate stones and pH greater than 6.0 may reduce the tendency for uric acid stone formation. Source: [facility] Current Interpretive Data was last revised on 2017 Protein, ur ql Negative Negative [facility] Glucose, ur ql Negative Negative [facility] Ketones, ur Negative Negative [facility] Bilirubin, ur Negative Negative [facility] Blood, ur Negative Negative [facility] Urobilinogen, ur <2.0 <2.0 mg/dL [facility] Nitrite, ur Negative Negative [facility] Leukocyte esterase, ur Negative Negative [facility] UA reflex comment Reflex conditions for microscopic UA and culture not met. [facility] Urine (Kidney, left) 01/26/2025 3:22 PM CDT 01/26/2025 3:27 PM CDT [facility] Isaiah Granados MD LAB MICROBIOLOGY - GENER AL ORDERABLES Final Result [facility] Department [place] [address] * Check Sample (01/26/2025 1:38 PM CDT) ABO Rh O Positive [facility] OTHER 01/26/2025 1:38 PM CDT 01/26/2025 1:54 PM CDT Medicine LAB BLOOD ORDERABLES Final Resul t [facility] Department [place] [address] [facility] * eGFR (01/26/2025 1:16 PM CDT) eGFR [...] MD LAB BLOOD ORDERABLES F inal Result [facility] [place] [address] * (ABNORMAL) Differential, auto (01/26/2025 1:16 PM CDT) Neutrophil abs 4.28 1.50 - 6.50 K/cumm Imm gran abs 0.05 0.00 - 0.10 K/cumm [facility] Lymphocyte abs 2.37 0.80 - 3.30 K/cumm [facility] Monocyte abs 0.55 0.20 - 0.80 K/cumm [facility] Eosinophil abs 0.20 0.00 - 0.50 K/cumm [facility] Basophil abs 0.11(H) 0.00 - 0.10 K/cumm [facility] Neutrophil pct 56.6 % [facility] Comment: Interpretive Data Percent cell count reference ranges are not reported, since discordance with absolute values may lead to misinterpretation of CBC data. Current Interpretive Data was last revised on 2017. Imm gran pct 0.7 % [facility] Comment: Interpretive Data Percent cell count reference ranges are not reported, since discordance with absolute values may lead to misinterpretation of CBC data. Current Interpretive Data was last revised on 2017. Lymphocyte pct 31.3 % [facility] Comment: Interpretive Data Percent cell count reference ranges are not reported, since discordance with absolute values may lead to misinterpretation of CBC data. Current Interpretive Data was last revised on 2017. Monocyte pct 7.3 % [facility] Comment: Interpretive Data Percent cell count reference ranges are not reported, since discordance with absolute values may lead to misinterpretation of CBC data. Current Interpretive Data was last revised on 2017. Eosinophil pct 2.6 % [facility] Comment: Interpretive Data Percent cell count reference ranges are not reported, since discordance with absolute values may lead to misinterpretation of CBC data. Current Interpretive Data was last revised on 2017. Basophil pct 1.5 % [facility] Comment: Interpretive Data Percent cell count reference ranges are not reported, since discordance with absolute values may lead to misinterpretation of CBC data. Current Interpretive Data was last revised on 2017. Blood 01/26/2025 1:16 PM CDT 01/26/2025 1:25 PM CDT us Shon Medrano MD LAB BLOOD ORDERABLES F inal Result [facility] [place] [address] * CBC with auto differential (01/26/2025 1:16 PM CDT) WBC 7.56 3.80 - 9.90 K/cumm Hgb 16.1 13.0 - 17.5 g/dL [facility] Hct 46.7 38.9 - 50.3 % [facility] Plt 228 150 - 400 K/cumm [facility] MPV 9.2 9.1 - 12.3 fL [facility] RBC 5.51 4.30 - 5.80 M/cumm [facility] MCV 84.8 81.3 - 96.4 fL [facility] MCH 29.2 27.1 - 33.3 pg [facility] MCHC 34.5 32.3 - 35.7 g/dL [facility] RDW CV 12.2 11.1 - 14.9 % [facility] RDW SD 37.2 35.7 - 48.1 fL [facility] NRBC abs 0.00 0.00 - 0.01 K/cumm [facility] Blood 01/26/2025 1:16 PM CDT 01/26/2025 1:25 PM CDT Shon Medrano MD LAB BLOOD ORDERABLES F inal Result Performing Organization Address [facility] de Phone Number [facility] [place] [address] * aPTT (01/26/2025 1:16 PM CDT) aPTT [...] ORDERABLES F inal Result Performing Organization Address [facility] de Phone Number [facility] [place] [address] * Protime-INR (01/26/2025 1:16 PM CDT) PT 11.2 10.2 - 13.5 sec INR 0.99 0.90 - 1.20 [facility] Comment: Interpretive data Oral anticoagulant therapeutic ranges: Venous thromboembolism prophylaxis or treatment: 2.0-3.0 CARDIOLOGY Standard range: 2.0-3.0 High-intensity range: 2.5-3.5 Refer to indication-specific guidelines for appropriate target ranges for prosthetic heart valve replacement. Current interpretive data was last revised on 2019. Blood 01/26/2025 1:16 PM CDT 01/26/2025 1:27 PM CDT Shon Medrano MD LAB BLOOD ORDERABLES F inal Result Performing Organization Address [facility] Co de Phone Number [facility] [place] [address] * Type and screen (01/26/2025 1:16 PM CDT) [facility] Ashley, indirect Negative ABO Rh O Positive [facility] Blood 01/26/2025 1:16 PM CDT 01/26/2025 1:25 PM CDT Narrative [facility] - 01/26/2025 2:20 PM CDT Has the patient had Daratumumab or Isatuximab in the past 6 months?->Unknown Shon Medrano MD LAB BLOOD BANK TEST OR DERABLES Final Result Performing Organization Address [facility] de Phone Number [facility] [place] [address] * (ABNORMAL) Comprehensive metabolic panel (01/26/2025 1:16 PM CDT) Pathologist [facility] Sodium 139 135 - 145 mmol/L Potassium, pl 3.7 3.3 - 4.9 mmol/L [facility] Chloride 102 97 - 110 mmol/L [facility] CO2 25 22 - 32 mmol/L [facility] Anion gap 12 2 - 15 mmol/L [facility] BUN 13 6 - 25 mg/dL [facility] Creatinine 1.34(H) 0.80 - 1.30 mg/dL [facility] Glucose 105 70 - 199 mg/dL [facility] Comment: Interpretive Data Fasting glucose >/= 126 [...] classification and Diagnosis of Diabetes Diabetes Care 2021; 46: S19-S40. Current interpretive data was last revised 2022. Calcium 9.3 8.5 - 10.3 mg/dL [facility] Bilirubin, total 0.5 0.1 - 1.2 mg/dL [facility] Protein, pl 7.4 6.5 - 8.5 g/dL [facility] Albumin 4.5 3.5 - 5.0 g/dL [facility] Alk phos 78 40 - 130 Units/L [facility] ALT 55 7 - 55 Units/L [facility] AST 31 10 - 50 Units/L [facility] Blood 01/26/2025 1:16 PM CDT 01/26/2025 1:25 PM CDT us Shon Medrano MD LAB BLOOD ORDERABLES F inal Result [facility] [place] [address] * Hepatitis C antibody (08/31/2020 10:02 AM CDT) Hep C Ab Nonreactive Nonreactive [facility] Comment: Interpretive Data Nonreactive: Antibodies [...] last revised on 2019. Testing performed by: [facility], [address] [place] [address], [place]., [address] Blood specimen (specimen) 08/31/2020 10:02 AM CDT 08/31/2020 4:02 PM CDT Marquis Holcomb MD LAB MICROBIOLOGY - GENE RAL ORDERABLES Final Result [facility] ([facility]) [address] [facility] [place] [address] from Last 3 Months or Most Recently Relevant to Health Maintenance Insurance [employer] ANTH ACCESS CHOICE Advance Directives For more information, please contact: [phone] * Full Code (Latest Code Status on File) Date Activated Date Inactivated Comments 10/21/2021 10:39 AM 10/21/2021 5:20 PM * Full Code Date Activated Date Inactivated Comments 10/21/2021 10:38 AM 10/21/2021 10:39 AM Care Teams Career Consultant Relationship Specialty Start Date End Date Koko Daugherty DO [address] [place], [place] [id number] PCP - General Internal Medicine 03/08/23 Edwin Melgoza NP Nurse Practitioner Family Practice 05/26/22 Carlos Becerra NP [address] [place] [address] Nurse Practitioner Psychiatry 08/26/22
[2025-02-14 09:21] LABS: Hematocrit 47.2 % (42.0-52.0); Hemoglobin 16.1 g/dL (14.0-18.0); Mean Corpuscular HGB Conc 34.1 g/dl (32-36); Mean Corpuscular Hemoglobin 29.3 pg (26-34); Mean Corpuscular Volume 85.8 fl (80-100); Platelet Count Result 265 k/mm3 (150-375); Red Blood Count 5.50 M/mm3 (4.6-6.20); White Blood Count 11.1 K/mm3 (4.5-10.0)
[2025-02-14 09:22] LABS: Add Urine Microscopic? NO; Appearance Urine Clear (Clear); Glucose Urine UA Negative (Negative); Leukocyte Esterase Ur Negative LEU/UL (Negative); Nitrate Urine Negative (Negative); Specific Grav Ur 1.014 (1.001-1.035)
[2025-02-14 09:37] LABS: INR 0.9; Partial Thromboplastin Time 22.4 Seconds (22.3-36.8); Prothrombin Time 12.4 Seconds (11.1-14.7)
[2025-02-14 09:44] LABS: Anion Gap 11 mmol/L (4-12); Blood Urea Nitrogen 16 mg/dL (9-20); Calcium 9.0 mg/dL (8.4-10.2); Carbon Dioxide 24 mmol/L (22-30); Chloride 103 mmol/L (98-107); Estimated Glomerular Filt Rate > 60; Glucose 89 mg/dL (65-110); Potassium 3.8 mmol/L (3.4-5.0); Sodium 138 mmol/L (137-145)
[2025-02-14 10:00] LABS: Lithium < 0.2 mmol/L (0.6-1.2)
== END 2025-02-14 07:57 | disposition home or self-care (01) ==
LOC: ANHSURGERY 07:58
PROVIDERS: Anesthesiology; PCP Nurse Practitioner; Visit Provider Neurological Surgery
DX: M51.16 Intervertebral disc disorders with radiculopathy, lumbar region (principal); Z51.81 Encounter for therapeutic drug level monitoring
CPT/HCPCS: 36415; 71046; 80048; 80178; 81003; 85027; 85610; 85730

== ENCOUNTER 2025-02-22 02:07 | Day surgery (SDC) | payer BC, SELFPAY ==
[2025-02-14 08:17] VITALS: BP 139/91; PULSE 85; RESP 16; TEMP 36.4; O2SAT 97; BMI 34.8
--- NOTE | 2025-02-14 08:31 | PC.NURSE ---
[facility] has started construction of its new state of the art ER which will open Spring 2026. With this, we anticipate parking may be a challenge for some our surgical patients and families. Parking spaces are limited but are available for all Surgical, obstetrics, and ER patients sharing this lot. If you arrive and find you are having a hard time finding a parking space, please note that we understand the challenges, please drive around the hospital and park near Hospital Entrance 1. When you enter this entrance, you can ask a volunteer to direct or take you back to the surgical waiting area to check in. We appreciate everyone?s understanding of these expected challenges while we build for your future. Report to the Outpatient Waiting Room, entrance under the green pavilion located off [address], at time ___9:00AM__ on date __02/22/25___. Planned Procedure Time: __11:00AM____.? Time changes happen often and if your time is changed the preop area will call you the afternoon before. - You and your visitor will be asked to self-screen and do not enter if you have any COVID symptoms. Please call surgeon if you need to reschedule. - A mask is optional within the hospital at this time. Patients may have clear liquids (water, carbonated beverages, clear teas, apple juice) until 3 hours prior to surgery (8:00AM) with a maximum of 20 ounces. - No food from midnight until time of surgery and no smoking, or chewing tobacco (or any form of nicotine). No chewing gum, candy or mints. Take only the following medications with a SIP of water on the morning of surgery: ___GABAPENTIN. MAY TAKE/USE ALBUTEROL INHALER AND CLONAZEPAM NEEDED DO NOT STOP ANY OF YOUR OTHER PRESCRIPTION MEDICATIONS PRIOR TO SURGERY EXCEPT THE FOLLOWING Hold all vitamins and supplements for 3 days per anesthesiologist. Medications to discontinue per physician NONE Date to take last dose Please no make-up, nail mexican, hairspray, perfume, deodorant, or body powder the day of surgery.? No jewelry (including any body piercings) or valuables the day of surgery, leave them at home.? Please take a shower or bath the night before, or the morning of, surgery with an antibacterial soap.? Wear comfortable, loose fitting clothing.? - Jewelry must be removed prior to entering the operating room.? Rings and piercings that are not removed may be cut off. - The hospital will not accept responsibility for valuables.? - Please leave all valuables, including medications, at home the day of surgery. If you are going home after surgery, a licensed laundry route driver must drive you home.? - NO public transportation without another adult if you receive anesthesia. - We recommend that an adult stay with you for 24 hours following discharge. - We also recommend that you do not drive, make important decision, drink alcoholic beverages, or take any drugs that were not prescribed by your health care provider for at least 24 hours after your discharge time. Follow any additional instructions given to you from your surgeon. Telephone instructions given to ____PATIENT and asked if any additional questions and then verbalized understanding. Patient advised to call surgeon office or pre surgery nurse liaison [phone] if any additional questions.
[2025-02-22] VITALS (10 sets, daily range): BP systolic 123–152; BP diastolic 71–95; PULSE 94–101; RESP 17–20; TEMP 36.2–36.4; O2SAT 95–100
--- NOTE | ~2025-02-22 | XR_ITS ---
EXAMINATION: XR fluoroscopy no charge DATE: 02/22/2025 13:14 INDICATION: Revision left L5-S1 microdiscectomy TECHNIQUE: 2 fluoroscopic images of the lumbar spine were obtained during procedure performed by Dr. Tripp. Radiologist was not present for the imaging or procedure. The amount of fluoroscopy time used during this procedure was 0.1 minutes. Total DAP was 0.86 Gycm^2. COMPARISON: None. FINDINGS: Images demonstrate a lap sponge markers project over the soft tissues posterior to the lower lumbar spine. The tip of a metallic probe projects over the space between the L4 and L5 spinous processes. IMPRESSION: 1. Fluoroscopy utilized during neurosurgical procedure at the lower lumbar spine. See procedure note for further detail. Reviewed, dictated and finalized at location A. IMPRESSION: 1. Fluoroscopy utilized during neurosurgical procedure at the lower lumbar spin e. See procedure note for further detail.
[2025-02-22] MEDS: LACTATED RINGERS 1,000 ML 30 ML IV CONT ×2 (09:27→12:48)
[2025-02-22] MEDS: fentaNYL CITRATE INJ (*CRX) 100 MCG/2 ML VIAL 25 MCG IV PUSH ×3 (10:18→13:25)
--- NOTE | 2025-02-22 10:42 | WPDHPUPDATE1 ---
History and Physical Update Update Date/Time: 02/22/25 10:42 History and Physical has been reviewed, including an updated exam of the patient. There are NO changes in the patient's condition. Risks, benefits, and alternatives have been discussed and questions answered. Patient agrees to proceed with procedure.
--- NOTE | 2025-02-22 11:02 | WPDANESEPPF ---
Anes - Initial Pre Proc Eval Procedure: Operation Date: 02/22/25 11:00 Proposed Procedures p Revision Left L5-S1 Microdiscectomy - Trini Tripp MD Date/Time: 02/22/25 11:02 Surgeon: Trini Tripp MD Pre Op Diagnosis: lumbar disc herniation with radiculopathy Patient Data Age: 30 Gender: M Height: 1.8 m Weight: 100.5 kg Last Vital Signs Temp 97.5 F L 02/22/25 08:55 Pulse 95 02/22/25 08:55 Resp 20 02/22/25 08:55 BP 147/93 H 02/22/25 08:55 Pulse Ox 98 02/22/25 08:55 O2 Del Method Room Air 02/22/25 08:55 Allergies Allergy/AdvReac Type Severity Reaction Status Date / Time Iodinated Contrast Media Allergy Hives Verified 02/14/25 08:16 ibuprofen AdvReac AVOIDS R/T Verified 02/14/25 08:16 TAKING LITHIUM Home Medications ?Medication ?Instructions ?Recorded ?Confirmed ?Type albuterol sulfate 90 mcg/actuation 2 puff inhalation Q6H PRN 07/14/24 02/14/25 History aerosol inhaler shortness of breath or wheezing bupropion HCl 150 mg 24 hr tablet, 150 mg PO DAILY 11/11/24 02/22/25 History extended release clonazepam 0.5 mg tablet 1 mg PO DAILY PRN anxiety 11/11/24 02/14/25 History venlafaxine 37.5 mg 37.5 mg PO QPM 11/11/24 02/14/25 History capsule,extended release 24 hr venlafaxine 75 mg tablet,extended 75 mg PO DAILY 11/11/24 02/22/25 History release 24 hr lithium carbonate 450 mg 900 mg PO HS 12/29/24 02/22/25 History tablet,extended release methocarbamol 500 mg tablet 1,000 mg (2 x 500 mg) PO TID PRN 02/01/25 02/22/25 Rx muscle spasm #60 tabs acetaminophen 500 mg tablet 1,000 mg PO Q6H PRN pain 02/14/25 02/22/25 History (Acetaminophen Extra Strength) gabapentin 300 mg capsule 300 mg PO Q12H 02/14/25 02/14/25 History Patient hx anesthesia problems: none Family hx anesthesia problems: none Results Review: All pre-operative results and documents have been reviewed as part of the pre-operative evaluation. [facility] Past Medical History Medical History Lumbar disc herniation with radiculopathy Anxiety and depression GERD (gastroesophageal reflux disease) Obesity Lumbosacral radiculopathy Spinal stenosis of lumbar region at multiple levels Depression Anxiety IBS (irritable bowel syndrome) Fatty liver Benign essential tremor syndrome Surgical History Surgical History Previous back surgery History of placement of ear tubes History of adenoidectomy History of tonsillectomy History of shoulder surgery History of ear surgery Family History Family History Father Ulcerative colitis Heart disease Mother Leukemia Sibling Leukemia Other Hypertension Social History Social History (Updated 02/02/25 @ 08:32 by Zulema Mack MA) Social History: Kelsey is somewhat confident filling out medical forms. In the last 12 months he has not received assistance from an organization or program. caffeine occasional Smoking status: Never smoker Alcohol intake: current Substance use: never Substance use type: does not use Do You Feel Safe in your Home?: Yes Lack of Transportation: No Lack of Food: Never True Current Housing: I Have Housing Concerned About Future Housing: No Difficulty Paying Gas/Electric Bills: No Difficulty Paying for Meds: No Currently Unemployed: No Education: High School Diploma/GED Difficulty w/ Childcare or Family Care: No Living arrangements: with family Additional living arrangements comments: [facility] Spiritual care concerns: No Anes - Eval Final PreProcedure Day of Procedure 02/22/25 11:02 Patient weight: normal Heart: regular rate and rhythm Lungs: clear to auscultation Airway: Mallampati scale class II Neurological: alert and oriented Last oral intake: >/= 8 hours ASA classification: III Emergent: no Anesthetic plan: proceed Anesthesia type and monitoring: general ETT and standard monitoring Results Review: All pre-operative results and documents have been reviewed as part of the pre-operative evaluation. Informed Consent: The patient's anesthetic plan and its attendant risks and benefits were discussed with the patient/family/POA. Questions were solicited and answers provided to the satisfaction of the patient/family/POA.
[2025-02-22] MEDS: ceFAZolin 2 GM in SODIUM CHLORIDE 0.9% IV 50 ML 100 ML IVPB (11:08)
--- NOTE | 2025-02-22 12:43 | W.PM.PROC2 ---
Procedure Note - Detailed Date of Procedure 02/22/25 Pre-op Diagnosis lumbar disc herniation with radiculopathy Post-op Diagnosis Same Procedure Performed 1. Revision left L5-S1 microdiskectomy 2. Use of C-arm for fluoroscopy 3. Use of microscope for microsurgical dissection Surgeon Trini Tripp MD [employer] [facility] Anesthesia General Description of Procedure The patient was brought into the OR where general anesthesia was induced. The patient was turned prone onto the operating table with Albino frame. All pressure points were padded. The previous incision was marked and verified with the use of the C-arm. The incision was prepped and draped in usual sterile fashion. Time out was performed, and local anesthetic was injected into the planned incision. The previous midline lumbar incision was opened with a 10-blade scalpel. The soft tissue was dissected with the bovie to the spinous process. A subperiosteal dissection was performed to expose the left L5 lamina. An xray confirmed the correct level. Self-retaining retractors were placed. The microscope was draped and brought into the field for microsurgical dissection. A straight currette was used to dissect the dura away from the lamina in the region of the previous laminotomy defect. The high speed drill and kerrison were used to remove additional lamina cranially at L5. A 4 penfield was used to elevate the dura from the ventral epidural space. While carefully retracting dura, we were able to identify a defect in the annulus of the disc through which free disc material was visible. A nerve hook was used to elevate the disc fragment which was then removed with a micropituitary. The epidural space was palpated with a nerve hook and Woodsen, and no further disc fragments were identified. Bleeding was controlled with the bipolar and Floseal. The nerve roots and dura felt well decompressed. The surgical site was copiously irrigated. The fascia was closed with 0-vicryl. The dermis was closed with 2-0 and 3-0 vicryl. The skin was closed with 4-0 monocryl. Skin glue was applied to the incision. The patient was returned supine to the stretcher, extubated, and taken to PACU. Codes: 08005, 23326 Drains No Packing No Pathology None sent Complications None Condition Stable Disposition PACU [facility] Billing Surgery - Charge Forward: Surgery Billing
[2025-02-22] MEDS: oxyCODONE HCL (*CRX) 5 MG TAB IR PO (14:15)
== END 2025-02-22 15:08 | disposition home or self-care (01) ==
PROVIDERS: PCP Nurse Practitioner; Visit Provider Neurological Surgery
PROC: (CPT 63030; principal; 2025-02-22 11:00)
DX: M51.16 Intervertebral disc disorders with radiculopathy, lumbar region (principal); F41.8 Other specified anxiety disorders; K21.9 Gastro-esophageal reflux disease without esophagitis; K58.9 Irritable bowel syndrome, unspecified; G25.0 Essential tremor; Z79.51 Long term (current) use of inhaled steroids; Z98.890 Other specified postprocedural states; Z98.1 Arthrodesis status; Z80.6 Family history of leukemia; Z82.49 Family history of ischemic heart disease and other diseases of the circulatory system
CPT/HCPCS: 63042; 99199; J0690; A9270; J1100; J2003; J2250; J2405; J2704; J3010; J7120